=== PATIENT | female | born 1950 | race Caucasian/White ===

== ENCOUNTER → 2019-12-14 13:40 | Outpatient (BNVA) | payer MEDICARE, MEDICAID, SELFPAY | PROVIDERS: Family Provider Family Medicine; Visit Provider Orthopaedic Surgery | DX: M17.11 Unilateral primary osteoarthritis, right knee (principal); M25.561 Pain in right knee | CPT/HCPCS: 73560; 73565 ==

== ENCOUNTER 2020-01-12 08:00 | Day surgery (SDC) | payer MEDICARE, MEDICAID, SELFPAY ==
--- NOTE | 2020-01-12 09:20 | ECG_ITS ---
Measurements Intervals [place] Rate: 53 P: MS: 0 QRS: 35 QRSD: 73 T: 30 QT: 397 QTc: 374 SINUS BRADYCARDIA WITH 2ND DEGREE AV BLOCK, MOBITZ TYPE II LOW QRS VOLTAGE IN PRECORDIAL LEADS [QRS DEFLECTION < 1.0 mV IN CHEST LEADS] MODERATE ST DEPRESSION [0.05+ mV ST DEPRESSION] No previous ECG available for comparison Electronically Signed On 01-12-2020 10:59:42 CDT by Germain Tapia [email or web address]
[2020-01-12 09:28] VITALS: BMI 32.1
--- NOTE | 2020-01-12 10:18 | ANES.PREANE2 ---
Pre-Anesthetic Assessment Pre-Anesthetic Assessment: Height/Weight: Height 1.55 m Weight 77.111 kg Preop Diagnosis: Osteoarthritis right knee Proposed Procedure: Operation Date: 01/22/20 07:00 Proposed Procedures p Right total knee arthroplasty (19118) M17.11(Right) - Fabián Law MD Exam: Pre-Anes Outpt Exam: alert, oriented x 3, clear to auscultation bilaterally and regular rate & rhythm Airway: Submandibular: WNL Cervical ROM: WNL MP: 1 Dentition: False CV/HEM: CV/HEM: HTN Comments: rx'd x 30y 2 blocks Angina/GARDINER Anesthetic Plan: ASA status: 2 Anesthesia: General and Regional (specify below) PFSH Anesthesia PFSH: Social History Smoking and tobacco status: never smoked Alcohol intake: never Data Anesthesia Cardiac Studies: No Data to Display
== END 2020-01-12 09:00 | disposition home or self-care (01) ==
LOC: OR 06-11 13:08
PROVIDERS: PCP Nurse Practitioner Family; Visit Provider Orthopaedic Surgery
DX: Z01.818 Encounter for other preprocedural examination (principal); M17.11 Unilateral primary osteoarthritis, right knee; I44.1 Atrioventricular block, second degree
CPT/HCPCS: 93005; 93010

== ENCOUNTER 2020-03-04 09:44 | Observation (INO) | payer MEDICARE, MEDICAID, SELFPAY ==
[2020-03-01 12:48] VITALS: BMI 33.4
--- NOTE | 2020-03-01 13:03 | ANES.PREANE2 ---
Pre-Anesthetic Assessment Pre-Anesthetic Assessment: Height/Weight: Height 1.55 m Weight 80.286 kg Preop Diagnosis: Osteoarthritis right knee Proposed Procedure: Operation Date: 03/04/20 07:00 Proposed Procedures p Right Total Knee Arthroplasty, primary osteoarthritis of knee 37970/M17.12(Right) - Fabián Law MD Familial anesthetic complications: None Exam: Pre-Anes Outpt Exam: alert, oriented x 3, clear to auscultation bilaterally and regular rate & rhythm Airway: Cervical ROM: WNL MP: 3 Additional comments: dentures on top edentulous Pulmonary: Pulmonary: None reported CV/HEM: CV/HEM: HTN and None reported : : None reported Hepatic: Comments: fatty liver GI: GI: None reported Metabolic: Metabolic: None reported Musc/skel: Musc/skel: Lower Back Pain Neuropsych: Neuropsych: 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
[2020-03-01 14:58] LABS: Add Urine Culture? Yes; Bacteria Urine 1+; Bilirubin Urine Neg (NEGATIVE); Blood Urine 3+ (Negative); Glucose Urine UA Norm (Normal); Ketones Urine Negative (Negative); Leukocyte Esterase Urine Negative (Negative); Nitrate Urine Negative (Negative); Protein Urine Neg (Negative); RBC Urine 25-40 /hpf (0-2); Specific Gravity, Urine 1.015 (1.005-1.030); Squamous Epithelial Cell Urine 0-4 (0-5); Urine Appearance Clear (CLEAR); Urine Color Yellow (Yellow); Urobilinogen Urine Norm (Negative); WBC Urine 0-4 /hpf (0-5); pH Urine 7 (5-7)
[2020-03-04] VITALS (21 sets, daily range): BP systolic 139–169; BP diastolic 65–100; PULSE 67–95; RESP 16–27; TEMP 36.2–36.8; O2SAT 92–100
[2020-03-04] MEDS: sodium chloride 0.9% 1,000 ML 30 ML IV (05:51)
--- NOTE | 2020-03-04 06:13 | P.ANESUD_ITS ---
Pre-Anesthetic Update Pre-Anesthetic Assessment: Date of Surgery/Procedure: 03/04/20 Preop Laurie gnosis: Osteoarthritis right knee Proposed Procedure: Operation Date: 03/04/20 07:00 Proposed Procedures p Right Total Knee Arthroplasty, primary osteoarthritis of knee 27645/M17.12(Right) - Fabián Law MD Any changes to Pre-Anesthetic Assessment?: No Last Intake: Intake Last Liquid Date 03/04/20 Last Liquid Time 03:30 Last Solid Date 03/03/20 Last Solid Time 17:00 Vitals: Temperature 97.1 F L 03/04/20 05:33 Temperature Source Temporal Artery S can 03/04/20 05:33 Pulse Rate 67 03/04/20 05:33 Pulse Rhythm 03/04/20 05:33 Pulse Strength 3+ Normal 03/04/20 05:33 Respiratory Rate 18 03/04/20 05:33 Blood Pressure 160/100 03/04/20 05:33 Blood Pressure Magaly n 120 03/04/20 05:33 Pulse Oximetry 100 03/04/20 05:33 Oxygen Delivery Me thod 03/04/20 05:33 Exam: Pre-Anes Outpt Exam: alert, oriented x 3, clear to auscultation bilaterally and regular rate & rhythm Cardiac Studies: No Data to Display
[2020-03-04] MEDS: midazolam 1 mg/mL INJ 5 ML 5 MG IVP (06:36)
--- NOTE | 2020-03-04 06:59 | PM.HP ---
Providers/Chief Complaint Primary Care Provider: Estefania Sands NP Chief Complaint: right total knee osteoarthritis History of Present Illness Pili Donohue is a 69 year old female with a history of osteoarthritis of the right knee. She is received intermittent cortisone injections every 3 months however this had less response to the injections. She has significant limitations and is here for elective total knee arthroplasty Review of Systems General: Reports: 10 or more systems reviewed and unremarkable except in HPI and below Medications/Allergies Home Medications Medication Instructions Recorded Confirmed Last Taken Type aspirin 81 mg tablet,delayed 81 mg PO DAILY 12/14/19 03/01/20 02/29/20 History release lisinopril 10 mg tablet 10 mg PO DAILY 12/14/19 03/01/20 03/04/20 03:30 History cholecalciferol (vitamin D3) 1,000 unit PO DAILY 01/12/20 03/01/20 03/04/20 03:30 History Bedside Commode #1 ea 02/23/20 03/01/20 Unknown Rx Allergies Allergy/AdvReac Type Severity Reaction Status Date / Time Penicillins Allergy Unknown Verified 03/01/20 12:42 PFSH Acute PFSH: Social History Smoking and tobacco status: never smoked Alcohol intake: never Vitals/I&O/Wt Last Vital Signs Temp 97.1 F L 03/04/20 05:33 Pulse 67 03/04/20 05:33 Resp 18 03/04/20 05:33 BP 160/100 03/04/20 05:33 Pulse Ox 100 03/04/20 05:33 Physical Exam Narrative: EXAM NARRATIVE: HEAD: Normocephalic/atraumatic. NECK: Soft supple nontender. HEART: Normal heart sounds, regular rhythm. CHEST: Clear to auscultation. ABDOMEN: Soft nontender nondistended. Right knee motion is from 10 to 100 degrees. She is tender over medial joint line. She has a strong dorsalis pedis pulse. She will flex extend her toes without any motor deficits Data Micro: Microbiology 03/01/20 12:30 Urine Culture - Preliminary Urine,Clean Catch A&P Assessment and plan (1) Osteoarthritis of right knee: Patient has been previously counseled. We will proceed with right total knee arthroplasty Status: Acute Attestations Medical Necessity Statement*: Observation status. We will plan to discharge tomorrow and less medical issues are Coding Level of Care Code Acute Payment Processor for g Fwd Diagnoses Osteoarthritis of right knee M17.11
[2020-03-04] MEDS: clindamycin 900 MG/50 ML PREMIX 100 MG IV ×3 (07:07→20:31)
[2020-03-04] MEDS: ketorolac 30 mg/mL INJ IM (07:24)
--- NOTE | 2020-03-04 07:37 | ANES.PROC ---
Anesthesia Procedures Procedure/Date: 03/04/20 Nerve Block ^: Nerve Block 1: Main Anesthesia: general anesthesia Time Out Performed: Yes Consent: requested by attending/covering physician, from patient, risks and benefits reviewed and patient agrees to proceed Nerve block location: adductor canal (Right) Anesthesia monitors applied: pulse oximetry, BP cuff and oxygen Nerve block position: supine Anesthetic Used: ropivicaine 0.5% Amount of anesthesia used (mL): 30 Ultrasound used to: recognize landmarks Nerve Stimulator Used?: No Interscalene/Femoral BLK: 4 stimuplex 21 g needle used for position and inplane approach Injection: neg aspiration of heme and paresthesia +/- Patient Tolerated Procedure: well and no complications Complications: none
--- NOTE | 2020-03-04 07:49 | SUR.OPER ---
0746 - Pt's family (Lorie) notified of surgery start via her cell phone.
[2020-03-04 08:00] LABS: Basophils % 0.4 %; Eosinophils # 0.2 10^3/uL (0.0-0.8); Eosinophils % 2.9 %; Hematocrit 36.5 % (37.0-47.0); Hemoglobin 12.1 g/dL (11.5-15.3); Lymphocytes # 2.3 10^3/uL (0.8-4.8); Mean Corpuscular HGB Conc 33.2 g/dL (30.0-36.0); Mean Corpuscular Hemoglobin 32.8 pg (28.0-34.0); Mean Corpuscular Volume 98.9 fL (81-99); Mean Platelet Volume 10.6 fL (7.4-10.4); Monocytes # 0.9 10^3/uL (0.2-0.9); Monocytes % 13.5 %; Neutrophils # 3.4 10^3/uL (1.8-7.7); Neutrophils % 50.1 %; Nucleated Red Blood Cells % 0 %; Platelet Count 147 10^3/cmm (130-400); Red Blood Count 3.69 10^6/uL (4.1-5.3); Red Cell Distribution Width 11.7 % (12.1-15.1); White Blood Count 6.8 10^3/uL (4.0-10.0)
[2020-03-04] MEDS: tranexamic acid 1,000 mg/10mL SDV 1000 MG IRRIGATION (08:22)
[2020-03-04] MEDS: EPINEPHrine 1 mg/mL INJ XX (08:24)
--- NOTE | 2020-03-04 09:08 | SUR.PHASEI ---
0905 PATIENT TO PACU AT THIS TIME FROM OR. RR EVEN AND UNLABORED. ORAL AIRWAY IN PLACE. SPO2 99% ON SIMPLE MASK AT 8L. DRESSING INTACT TO RIGHT KNEE, RIGHT PEDAL PULSE MARKED AND STRONG. LOCKWOOD CATH IN PLACE.
--- NOTE | 2020-03-04 09:12 | SUR.PHASEI ---
0912 ORAL AIRWAY REMOVED AT THIS TIME. SPO2 100% ON SIMPLE MASK AT 8L.
--- NOTE | 2020-03-04 09:15 | SUR.PHASEI ---
0915 FIRST ICE PLACED AT THIS TIME TO RIGHT KNEE.
--- NOTE | 2020-03-04 09:16 | XR_ITS ---
WS: [id number] RIGHT KNEE 2 VIEWS AP and cross table lateral imaging is submitted. HISTORY: s/p R TKA. COMPARISON: 12/14/2019 Total knee replacement prosthetic devices are in good position and alignment. Normal position of the patella. Posterior patella arthroplasty. Numerous postsurgical sutures are noted over the anterior kn ee and there are normal postoperative changes in the soft tissues consistent with air, blood and ute a. No complications are evident. XR/XR knee RT 1-2V [id number] IMPRESSION: Satisfactory appearance of the recent RIGHT knee arthroplasty.
--- NOTE | 2020-03-04 09:18 | PM.OP ---
Operative Report Date of procedure: March 04, 2020 Pre-op Diagnosis: Osteoarthritis right knee Post-op diagnosis: same Post-op Findings: Same Procedure Done: Right total knee arthroplasty Implants: Angela total knee arthroplasty components were used includin) Size 3 triathalon cruciate retaining femoral component 2) Size 3 Tritanium tibial component 3) 32 mm /10 mm thickness Tritanium asymetric patella 4) Size 3/11 mm thickness CR tibial bearing insert Pathology: none sent Anesthesia: General and Nerve Block (Adductor canal) Estimated blood loss (mL): 200 Complications: None Findings: The patient had eburnated bone over medial femoral condyle, medial tibial plateau, patella and trochlea Condition: stable Disposition: PACU Procedure: The patient was taken to the operating room. Patient was given 1 g of tranexamic acid . The above anesthesia provided by the anesthesia service. A timeout was performed. The patient was prepped and draped in the usual fashion with the lower extremity exposed. A anterior incision was made, midline, from a point proximal to the patella to the distal tibial tubercle. Dissection was accomplished through the subcutaneous fat to the extensor mechanism. The vastus medialis oblique is musculature was elevated with a retractor and a capsular incision made from the medial patella along the patellar tendon up into the superior capsule. The patella could be displaced laterally and the knee flexed. The patellar fat pad was resected to provide better visibility. Retractors were placed medially and laterally adjacent to the tibial plateau. The femoral canal was drilled in line with the longitudinal axis of the femur. Intramedullary femoral guide for used to make a distal femoral cut in 5 degrees of valgus, resecting 8 mm from the more prominent condyle. Next the extra medullary tibial guide was placed in alignment with the longitudinal axis of the tibia. The cutting guides were set to remove just over 9 mm from the high tibial plateau. The proximal tibia was then cut. The femoral measuring guide was then placed over the distal femur. Rotation was verified checking the relationship of the guide to the condyle and the trochlear groove. The femur was measured and cut for the desired femoral component. The desired tibial baseplate was then chosen. A trial reduction with the femur tibial baseplate and polyethylene was done, assuring that the knee was stable throughout full motion. Ligament balancing involved nothing more than release of the deep medial collateral ligament.The tibia was prepared for the tibial baseplate. Patellar thickness was then measured. The patella was cut removing articular cartilage and prepared for appropriate size patellar button. All surfaces were cleaned with pulsatile lavage. The femur tibia and patella were then press-fit into place. The posterior capsule and collateral ligaments were then injected with a solution of 100 mL of 0.2% ropivacaine, 1 mL of a 1:1000 epinephrine solution, and 30 mg of Toradol. Final polyethylene component was then snapped into place into the tibia. 2 grams of tranexamic acid were applied to the wound. The tourniquet was deflated. The tranxanemic acid was left contact with the knee for 5 minutes before the knee was irrigated with saline. The extensor retinaculum was closed with 1 Ethibond. The subcutaneous tissues were closed with 2-0 Vicryl and the skin was closed with skin marlon. A compressive dressing was applied. The patient was taken to recovery room in stable condition.
--- NOTE | 2020-03-04 09:59 | SUR.PHASEI ---
0947 PATIENT TO MED SURG AT THIS TIME. NO DISTRESS. DENIES PAIN. DRESSING INTACT TO RIGHT KNEE, WITH FIRST ICE IN PLACE. LOCKWOOD CATH DRAINING, CLEAR,YELLOW URINE.
[2020-03-04] MEDS: CELEcoxib 200 mg Capsule PO ×2 (10:45→20:30)
[2020-03-04] MEDS: sodium chloride 0.9% 1,000 ML 100 ML IV ×2 (10:47→20:31)
[2020-03-04] MEDS: chlorhexidine gluconate 0.12% Btl 473 mL 30 ML MUCOUS MEM ×3 (12:21→20:30)
[2020-03-04] MEDS: sennosides-docusate Tablet 2 TAB PO (17:22)
[2020-03-04] MEDS: iron polysaccharide complex 150 mg Capsule PO (17:22)
[2020-03-04] MEDS: calcium carbonate 500 mg Chew Tablet 1000 MG PO (17:23)
[2020-03-04] MEDS: oxyCODONE-APAP 5-325 mg Tablet 1 TAB PO (20:30)
[2020-03-05] VITALS: BP 133/77; PULSE 79; RESP 20; TEMP 36.8; O2SAT 93
[2020-03-05 04:00] VITALS: BP 147/77; PULSE 71; RESP 20; TEMP 37.1; O2SAT 93
[2020-03-05] MEDS: sodium chloride 0.9% 1,000 ML 100 ML IV (05:09)
[2020-03-05 05:11] LABS: Hematocrit 36.6 % (37.0-47.0)
[2020-03-05] MEDS: clindamycin 900 MG/50 ML PREMIX 100 MG IV (05:12)
--- NOTE | 2020-03-05 07:34 | P.DS_ITS ---
Discharge Providers Date of Admission: 03/04/20 09:44 Date of Discharge: March 05, 2020 Attending Provider at Admission: Fabián Law MD Attending Provider at Discharge: Fabián Law MD Primary Care Provider: Estefania Sands NP Diagnoses at Discharge Discharge Diagnosis (1) Osteoarthritis of right knee: Status: Acute Reason for Visit Reason for Visit: Reason For Visit: right total knee osteoarthritis Hospital Course Hospital Course: Patient underwent elective right total knee arthroplasty. She had little pain and made excellent progress with therapy. By the first postoperative day she was independent with her exercises and independent for d ischarge Physical Exam Narrative: EXAM NARRATIVE: Seen on 03/05/2020. She had little swelling in her knee. Her dressing was clean and dry. She could perform a straight leg raise. Urinary Catheter Management^: Boo: Cath Placed During This Visit: yes Reason for Continuing Indwelling Catheter: Perioperative Use in Selected Surgeries Urinary Catheter Date of Insertion: 03/04/20 Urinary Catheter Time of Insertion: 07:15 Discharge Data Data Completed and Pending: Completed Studies During Hospitalization Category Date Time Status XR knee RT 1-2V 7 3560 Routine Exams 03/04/20 09:16 Completed Labs from last 24 hours 03/05/20 03/04/20 04:37 07:25 WBC 6.8 RBC 3.69 L Hgb 12.1 Hct 36.6 L 36.5 L MCV 98.9 MCH 32.8 MCHC 33.2 RDW 11.7 L Plt Count 147 MPV 10.6 H Neut % (Auto) 50.1 Lymph % (Auto) 33.0 [place] % (Auto) 13.5 Eos % (Auto) 2.9 Baso % (Auto) 0.4 Neut # (Auto) 3.4 Lymph # (Auto) 2.3 [place] # (Auto) 0.9 Eos # (Auto) 0.2 Baso # (Auto) 0.0 Nucleated RBC % (a uto) 0 Nucleated RBCs # 0.0 Vitals: Last Vital Signs Temp 98.7 F 03/05/20 04:00 Pulse 71 03/05/20 04:00 Resp 20 H 03/05/20 04:00 BP 147/77 03/05/20 04:00 Pulse Ox 93 03/05/20 04:00 Discharge Plan Discharge Patient Disposition: Home, Self-Care Condition: Stable Prescriptions: New oxycodone-acetaminophen 5-325 mg Tablet 1 tab PO Q4H PRN (Reason: Severe Pain) Qty: 30 RF: 0 celecoxib 200 mg Capsule 200 mg PO Q12H Qty: 30 RF: 0 Continued aspirin 81 mg tablet,delayed release (DR/EC) 81 mg PO DAILY RF: 0 lisinopril 10 mg tablet 10 mg PO DAILY RF: 0 (DME) Bedside Commode Qty: 1 RF: 0 cholecalciferol (vitamin D3) 1,000 unit/drop Drops 1,000 unit PO DAILY RF: 0 Other Ambulatory Orders: DME: Walker (Order) Location: None Selected Ordered By: Fabián Law Referrals: Fabián Law MD [Physician] - 03/19/20 3:15 pm Discharge Diet: Advance as tolerated Discharge Activity: Limit activity as instructed Patient Instructions: Oxycodone/Acetaminophen (By mouth), Celecoxib (By mouth), Total Knee Replacement (DC), Surgical Site Infections (GEN) Activity Restrictions/Additional Instructions: May shower once incisions completely free of drainage. Replaced dressings as needed for drainage.. Take Celebrex twice a day for the next 15 days, discontinue other anti- inflammatories Take oxycodone for breakthrough pain. Exercises per physical therapy. Ice and elevate knees as needed for pain and swelling.. Discharge Date/Time: 03/05/20 14:00 Discharge Attestations Time Spent in Discharge Care*: other Quality Metrics Clinical Quality Measures During this hospital stay, did patient experience: None Coding Level of Care Code Acute Corporate Health Consultant for Jerica Armstrong Diagnoses Osteoarthritis of right knee M17.11
[2020-03-05 08:00] VITALS: BP 180/94; PULSE 66; RESP 18; TEMP 36.6; O2SAT 95
[2020-03-05] MEDS: cholecalciferol (vitamin D3) 1,000 unit Tablet 1000 UNIT PO (08:02)
[2020-03-05] MEDS: lisinopril 10 mg Tablet PO (08:02)
[2020-03-05] MEDS: multivitamin therapeutic Tablet 1 TAB PO (08:02)
[2020-03-05] MEDS: sennosides-docusate Tablet 2 TAB PO (08:02)
[2020-03-05] MEDS: iron polysaccharide complex 150 mg Capsule PO (08:02)
[2020-03-05] MEDS: aspirin 81 mg EC Tablet PO (08:02)
[2020-03-05] MEDS: chlorhexidine gluconate 0.12% Btl 473 mL 30 ML MUCOUS MEM ×2 (08:06→13:35)
--- NOTE | 2020-03-05 08:15 | PC.NURSE ---
PT LOCKWOOD CATHETER REMOVED, 10ML OUT OF BALLOON WAS REMOVED, 200ML LIGHT YELLOW CLEAR URINE WAS REMOVED FROM CATHETER BAG. PT TOLERATED WELL.
[2020-03-05 10:50] VITALS: BP 111/63; PULSE 89; RESP 18; TEMP 36.8; O2SAT 99
[2020-03-05] MEDS: CELEcoxib 200 mg Capsule PO (11:15)
--- NOTE | 2020-03-05 11:56 | PC.CHAP ---
Pastoral Care Encounter/Spiritual Assessment Type of Contact [] Declined break out worker visit [] Patient/Family/Request visit [] Outpatient visit [] Follow-up visit [] Physician referral [] Code/Alert [x] Routine visit [] Staff referral [] Actively dying [] Patient sleeping [] Family support [] [] Out of room [] Palliative care [] [x] Receiving care in room [] Pre-surgical visit [] Trauma [] Long length of stay [] ICU visit [] Other: Relational/Emotional Strength [x] Patient feels connected with others/family/visitors/staff [] Distress [] Loneliness/isolation [] Abandonment Spirituality of Patient [x] Person of Lori [] Attends Scientologist of their Lori [x] Believes in Prayer [] Reads Bible or Buddhism materials [] There are Spiritual issues to be addressed Front Office Director Interventions [x] Prayer [x] Active listening [x] Non-anxious presence [x] Spiritual/emotional support [] Crisis/trauma care [x] Spiritual counseling [] Bereavement support [] Provided bereavement packet [] Provided Bible/devotional materials [] Provided toy/stuffed animal, coloring book to patient or family member [] Provided Communion [] Anointing/[place] [] Salvation [x] Completed spiritual assessment [] Other: Impact on Illness or Injury [] Angry [] Fearful [] Anxious [] Often cries [] Exhaustion [] Unable to work [] Unable to attend sikhism [] Unable to walk/stand [] Unable to read [] Unable to drive [] Unable to eat/drink [] Unable to sleep [] Unable to be with family [] Patient intubated [] Other: Summary right total knee replacement surgy went well, going home today, good attidude Time spent with patient 10 mins
[2020-03-05 14:14] VITALS: BP 111/63; PULSE 89; RESP 18; TEMP 36.8; O2SAT 99
== END 2020-03-05 14:00 | disposition home or self-care (01) ==
LOC: MEDSURG 17:38
PROVIDERS: Admitting Provider Orthopaedic Surgery; PCP Nurse Practitioner Family; Visit Provider Orthopaedic Surgery
PROC: (CPT 27447; principal; 2020-03-04 07:00)
DX: M17.11 Unilateral primary osteoarthritis, right knee (principal); I10 Essential (primary) hypertension; Z86.73 Personal history of transient ischemic attack (TIA), and cerebral infarction without residual deficits
CPT/HCPCS: 27447; 12345; 36415; 51702; 73560; 81001; 85014; 85025; 87086; 96361; 96365; 96374; 97110; 97116; 97161; 97165; C1776; G0378; J0171; J1100; J1580; J1885; J2001; J2250; J2405; J2704; J2710; J2795; J3010; J3490; J7030

== ENCOUNTER 2020-03-05 23:53 | Emergency (ER) | payer MEDICARE, MEDICAID, SELFPAY ==
[2020-03-05 23:58] VITALS: BP 160/77; PULSE 82; RESP 18; TEMP 36.8; O2SAT 98; BMI 34.9
--- NOTE | 2020-03-06 01:02 | W.ED.EXTPRO ---
HPI - Extremity Problem General: Chief complaint: Extremity Injury, Lower Stated complaint: knee pain Source: patient and EMS Mode of arrival: EMS Limitations: no limitations History of Present Illness: HPI Narrative: 69-year-old female who had knee replacement a day ago. Patient states that she did not fill her oxycodone and has had pain starting tonight. States the pain is severe in nature. She states she felt a clicking in her knee as well. She denies any fall or new injuries. Denies any fevers. MD Complaint: extremity pain Onset (ago): hour(s) Pain Consistency: constant Location: right Severity scale (1-10): 7 Quality: sharp Radiation: none Relieving factors: immobilization Exacerbating factors: range of motion Associated symptoms: Deny chest pain, fever(s) or rash Review of Systems Const: Denies: fever, chills, body aches or change in appetite Eyes: Denies: blurry vision or eye discomfort ENMT: Denies: throat pain or dental pain Card: Denies: chest pain Resp: Denies: shortness of breath GI: Denies: abdominal pain, nausea, vomiting or diarrhea : Denies: painful urination Musc: Reports: joint pain Skin/Breast: Denies: rash Neuro: Denies: headache Psych: Denies: depression Antonino/Lymph: Denies: easy bruising All/Imm: Denies: hives [facility] ED PFSH: Social History Smoking and tobacco status: never smoked Alcohol intake: never Physical Exam Const: COMMON NORMALS: no apparent distress, oriented x3 and healthy appearing HENMT: COMMON NORMALS: normocephalic and head/scalp atraumatic HEAD & SCALP: normocephalic and atraumatic Eye: COMMON NORMALS: PERRL and EOMs intact bilaterally PUPIL: Yes PERRL Neck/C-Spine: COMMON NORMALS: full ROM and supple Chest: COMMONS NORMALS: inspection of chest normal and palpation of chest normal Resp: COMMON NORMALS: normal respiratory effort, no retractions, no use of accessory muscles and clear to auscultation bilaterally AUSCULTATION: clear to auscultation bilaterally Cardio: COMMON NORMALS: regular rate, regular rhythm and no murmurs RATE: regular rate RHYTHM: regular rhythm GI: COMMON NORMALS: normal to inspection, nondistended, normoactive bowel sounds, soft to palpation, non-tender and no masses PALPATION: Yes soft Extremity: NARRATIVE EXTREMITY EXAM: Right knee dressing was taken down and incision is clean dry intact with no drainage. Patient has full range of motion with some pain. No obvious deformity noted Neuro: COMMON NORMALS: oriented x3, moves all extremities and no focal motor deficits Psych: COMMON NORMALS: mental status grossly normal, thought process normal and cooperative THOUGHT PROCESS: normal thought process Skin: COMMON NORMALS: no rashes or lesions noted and no wounds GENERAL SKIN EXAM: no rashes or lesions noted Course Vital Signs: Vital signs: Vital Signs Temperature 98.3 F 03/05/20 23:58 Pulse Rate 82 03/06/20 01:40 Respiratory Rate 16 03/06/20 01:40 Blood Pressure 126/76 03/06/20 01:40 Pulse Oximetry 92 03/06/20 01:40 MDM - Extremity (Nontraumatic) MDM Narrative: Medical decision making narrative: Patient presents with postop knee pain. Patient's x-ray here is negative and the incision is clean dry and intact. Distal pulses are palpable and she is well-appearing here informed her she needs to fill her pain prescription she is stable for discharge. She is to call Dr. Soto's office tomorrow and schedule appointment. She is to return if worsening. Imaging Data^: xr knee r: My impression: No acute abnormality noted Discharge Plan Discharge Patient Disposition: Home, Self-Care Clinical Impression: Postoperative pain of knee Condition: Stable Prescriptions: No Action aspirin 81 mg tablet,delayed release (DR/EC) 81 mg PO DAILY RF: 0 lisinopril 10 mg tablet 10 mg PO DAILY RF: 0 (DME) Bedside Commode Qty: 1 RF: 0 oxycodone-acetaminophen 5-325 mg Tablet 1 tab PO Q4H PRN (Reason: Severe Pain) Qty: 30 RF: 0 celecoxib 200 mg Capsule 200 mg PO Q12H Qty: 30 RF: 0 cholecalciferol (vitamin D3) 1,000 unit/drop Drops 1,000 unit PO DAILY RF: 0 Discharge Orders: Discharge Order (Routine); Ordered 03/06/20 Ordered By: Mónica Botello Referrals: Estefania Sands NP [Primary Care Provider] - Fabián Law MD [Physician] - 1-3 days Discharge Diet: Advance as tolerated Discharge Activity: Resume usual activity Patient Instructions: Precautions after Total Joint Replacement Surgery (ED) Discharge Date/Time: 03/06/20 01:47 Coding Level of Care Code ED Road Test Examiner for Jerica Fwd Exam Comprehensive
[2020-03-06 01:05] VITALS: RESP 17; O2SAT 95
[2020-03-06] MEDS: morphine 4 mg/mL SDV 1 mL IM (01:05)
--- NOTE | 2020-03-06 01:08 | XR_ITS ---
WS: [id number] RIGHT KNEE: 3 VIEW(S) TECHNIQUE: AP, oblique(s) and lateral. HISTORY: Post Op COMPARISON: 03/04/2020 Recent postop knee. Prosthetic components remain in good position alignment. No fractures or dislocat ion. No joint space narrowing or osteophytes. There is a small joint effusion and soft tissue edema surrounding the knee. Postoperative marlon ant eriorly. XR/XR knee RT 3V* [id number] IMPRESSION: Satisfactory recent postoperative changes RIGHT knee.
[2020-03-06 01:09] VITALS: PULSE 78
[2020-03-06 01:12] VITALS: BP 152/79; PULSE 83; RESP 17; O2SAT 95
[2020-03-06 01:40] VITALS: BP 126/76; PULSE 82; RESP 16; O2SAT 92
--- NOTE | 2020-03-06 13:56 | DCPLANNER ---
Addendum entered by Marva Menjivar 03/29/20 15:09: Patient did attend the appointment scheduled for 03.19.20 with ortho. Original Note: manager wellness had message to schedule a follow up appointment for patient with ortho. manager wellness called the ortho clinic, spoke with Pat, gave clinic patients information. manager wellness was told that patient has a follow up appointment scheduled for Thursday, March 19, 2020 at 3:15 at the ortho clinic.
== END 2020-03-06 01:47 | disposition home or self-care (01) ==
PROVIDERS: Emergency Provider Emergency Medicine; PCP Nurse Practitioner Family
DX: G89.18 Other acute postprocedural pain (principal); M25.561 Pain in right knee; Z96.651 Presence of right artificial knee joint; Z79.82 Long term (current) use of aspirin
CPT/HCPCS: 12345; 73562; 96372; 99281; 99283; J2270

== ENCOUNTER 2020-03-23 13:31 | Emergency (ER) | payer MEDICARE, MEDICAID, SELFPAY ==
[2020-03-23 13:37] VITALS: PULSE 51; RESP 20; TEMP 37.3; O2SAT 95; BMI 32.8
--- NOTE | 2020-03-23 13:44 | CTR_ITS ---
PROCEDURE INFORMATION: Exam: CT Abdomen And Pelvis With Contrast Exam date and time: 03/23/2020 2:38 PM Age: 69 years old Clinical indication: Abdominal pain; Localized; Left lower quadrant (llq); Patient HX: C/O llq/groin pain; Additional info: Left groin pain TECHNIQUE: Imaging protocol: Computed tomography of the abdomen and pelvis with intravenous contrast. Radiation optimization: All CT scans at this facility use at least one of these dose optimization techniques: automated exposure control; mA and/or kV adjustment per patient size (includes targeted exams where dose is matched to clinical indication); or iterative reconstruction. Contrast material: VISI 320; Contrast volume: 95 ml; Contrast route: 20G; COMPARISON: CT abdomen pelvis w con* [id number] 08/24/2014 7:53 PM RADIATION DOSE METRICS: Total DLP: 1050.37 mGy-cm FINDINGS: Liver: Normal. No mass. Gallbladder and bile ducts: Normal. No calcified stones. No ductal dilation. Pancreas: Normal. No ductal dilation. Spleen: Normal. No splenomegaly. Adrenals: Normal. No mass. Kidneys and ureters: Left renal simple cyst measuring >1.0 cm which has increased in size since the previous exam. No followup needed. [id number] left hydronephrosis with 2 contiguous 4 mm left UVJ stones. Stomach and bowel: Unremarkable. No obstruction. No mucosal thickening. Appendix: No evidence of appendicitis. Intraperitoneal space: Unremarkable. No free air. No significant fluid collection. Vasculature: Unremarkable. No abdominal aortic aneurysm. Lymph nodes: Unremarkable. No enlarged lymph nodes. Bladder: Unremarkable as visualized. Reproductive: Unremarkable as visualized. Bones/joints: Dextroscoliosis. Moderate to severe multilevel spine degenerative changes including degenerative disc disease, spondylosis and facet degenerative changes. Soft tissues: Unremarkable. CT/CT abdomen pelvis w con* [id number] IMPRESSION: 1. Left renal simple cyst measuring >1.0 cm which has increased in size since the previous exam. No followup needed. 2. Fpib-yz-ijsvrmrs left hydronephrosis with 2 contiguous 4 mm left UVJ stones. COMMENTS: Consistent with the [employer]'s Incidental Findings Committee white paper (J Am [employer]igo Radiol 2018): Any incidental renal lesion less than 1.0 cm or classified as too small to characterize, or any incidental cystic renal lesion characterized as simple-appearing, is likely benign. No follow-up imaging is recommended for these lesions per consensus recommendations based on imaging criteria. Radiation Dose CTDIVOL = (mGy): DLP = 1050.37 (mGy-cm)
--- NOTE | 2020-03-23 13:46 | PC.NURSE ---
HAD TOTAL RIGHT KNEE REPLACEMENT 03/04. DENIES TAKING ANY PAIN MEDS
[2020-03-23] MEDS: ondansetron 2 mg/ML SDV 2 mL 4 MG IVP (14:19)
[2020-03-23 14:20] LABS: Basophils # 0.1 10^3/uL (0.0-0.1); Basophils % 0.7 %; Eosinophils # 0.1 10^3/uL (0.0-0.8); Eosinophils % 0.6 %; Hematocrit 36.4 % (37.0-47.0); Hemoglobin 12.1 g/dL (11.5-15.3); Lymphocytes # 2.1 10^3/uL (0.8-4.8); Mean Corpuscular HGB Conc 33.2 g/dL (30.0-36.0); Mean Corpuscular Hemoglobin 32.4 pg (28.0-34.0); Mean Corpuscular Volume 97.3 fL (81-99); Mean Platelet Volume 10.3 fL (7.4-10.4); Monocytes # 1.2 10^3/uL (0.2-0.9); Monocytes % 14.1 %; Neutrophils # 5.1 10^3/uL (1.8-7.7); Neutrophils % 59.4 %; Nucleated Red Blood Cells % 0 %; Platelet Count 258 10^3/cmm (130-400); Red Blood Count 3.74 10^6/uL (4.1-5.3); Red Cell Distribution Width 12.3 % (12.1-15.1); White Blood Count 8.5 10^3/uL (4.0-10.0)
[2020-03-23] MEDS: sodium chloride 0.9% 1,000 ML 999 ML IV (14:20)
[2020-03-23] MEDS: HYDROmorphone 1 mg/mL INJ 1 mL IVP (14:20)
[2020-03-23 14:40] VITALS: BP 165/73; PULSE 56; RESP 20; O2SAT 95
[2020-03-23 14:40] LABS: Lactate (Lactic Acid level) 2.8 mmol/L (0.5-2.2)
[2020-03-23 14:44] LABS: Alanine Aminotransferase 34 U/L (0-33); Albumin Level 3.7 g/dL (3.5-5.2); Alkaline Phosphatase 125 IU/L (35-105); Anion Gap 19.5 (5-19); Aspartate Amino Transferase 53 U/L (0-32); Blood Urea Nitrogen 15 mg/dL (8-23); C Reactive Protein 11.1 mg/L (0.0-4.9); Calcium 9.7 mg/dL (8.5-10.5); Carbon Dioxide 23 mmol/L (22-29); Chloride 101 mmol/L (98-107); Globulin 3.2 g/dL (1.3-4.6); Glomerular Filtration Rate 37.4 mL/min (90-130); Glucose 112 mg/dL (65-115); Lipase 42 U/L (13-60); Osmolality Calculated 285 mOsm/kg (285-295); Potassium 4.5 mmol/L (3.5-5.1); Sodium 139 mmol/L (136-145); Total Bilirubin 1.1 mg/dL (0.15-1.2); Total Protein 6.9 g/dL (6.6-8.7)
--- NOTE | 2020-03-23 14:54 | PC.NURSE ---
RESTING AFTER PAIN MEDS. FLUIDS INFUSING. NO ACUTE DISTRESS
--- NOTE | 2020-03-23 15:24 | W.ED.ABDPA2 ---
HPI - Abdominal Pain General: Chief Complaint: Abdominal Pain Stated Complaint: LEFT GROIN PAIN Time Seen by Provider: 03/23/20 13:39 History of Present Illness: HPI narrative: 69-year-old female who is status post right total knee arthroplasty at about 3 weeks. She had been doing well with this. She presents with left groin pain that started last night and is hurt worse today. She is vomited a few times to this morning. No fever. No diarrhea. No blood in the stool. MD elicited complaint: abdominal pain Onset (ago): hour(s) Pain Consistency: constant Location: LLQ and Pelvis Severity: moderate Quality: stabbing Radiation: none (head) Exacerbating factors: movement Associated Symptoms: Reports chills, nausea and vomiting; Denies dysuria, fever(s), hematochezia, hematuria and melena Review of Systems Const: Reports: chills; Denies: fever(s) Eyes: Denies: change in vision or blurry vision ENMT: Denies: odynophagia, bleeding gums, dental pain, change in hearing, epistaxis, post nasal drip or sinus pain Card: Denies: chest pain, palpitations, irregular heart rhythm, edema, swelling of feet/ankles, dyspnea on exertion or orthopnea Resp: Denies: dyspnea, productive cough, non-productive cough or wheezing GI: Reports: abdominal pain, nausea and vomiting; Denies: rectal pain, hematochezia or melena : Denies: dysuria, urinary frequency or hematuria Musc: Denies: neck pain, back pain, joint redness or joint warmth Skin/Breast: Denies: rash, pruritus or erythema Neuro: Denies: headache(s), dizziness, vertigo or confusion Psych: Denies: anxiety PFSH ED PFSH: Social History Smoking and tobacco status: never smoked Alcohol intake: never Physical Exam Const: GENERAL APPEARANCE: well developed ORIENTATION/CONSCIOUSNESS: Yes oriented to person, Yes oriented to place and Yes oriented to time HENMT: COMMON NORMALS: normocephalic, external ears normal and Normal external nose present HEAD & SCALP: normocephalic FACE & SINUS: normal facial exam NOSE: Normal external nose present and No nasal discharge present EXTERNAL EAR: Yes external ears normal MOUTH: tongue normal THROAT: posterior oropharynx normal; no peritonsillar mass Eye: COMMON NORMALS: Equal, round and reactive pupils present, EOMs intact bilaterally and conjunctivae normal EYELID: eyelids normal CONJUNCTIVA: Yes conjunctivae normal PUPIL: Yes Equal, round and reactive pupils present Neck/C-Spine: GENERAL: No tracheal deviation Chest: COMMONS NORMALS: normal inspection of the chest CHEST: No tenderness Resp: COMMON NORMALS: clear to auscultation bilaterally EFFORT & INSPECTION: No tachypneic, No respiratory distress, No retractions, No uses accessory muscles and No tracheal deviation AUSCULTATION: clear to auscultation bilaterally, no rhonchi, no wheezes and lung sounds not diminished Cardio: COMMON NORMALS: regular rate and regular rhythm RATE: regular rate RHYTHM: regular rhythm HEART SOUNDS: no murmurs PERIPHERAL PULSES: radial pulses present GI: INSPECTION: No abdominal distension AUSCULTATION: No Hyperactive bowel sounds present and No Hypoactive bowel sounds present PALPATION: No Guarding due to palpation present (GI) and No Rigid due to palpation PERCUSSION: no dullness to percussion and no tympanic to percussion : BLADDER/KIDNEY EXAM: Yes CVA tenderness Back/Pelvis: GENERAL BACK: Yes CVA tenderness Neuro: SENSORIUM/ORIENTATION: Yes oriented to person, Yes oriented to place and Yes oriented to time Psych: COMMON NORMALS: mental status grossly normal Skin: COMMON NORMALS: no rashes or lesions noted GENERAL SKIN EXAM: no rashes or lesions noted Course Vital Signs: Vital signs: Vital Signs Temperature 98.6 F 03/23/20 17:33 Pulse Rate 62 03/23/20 17:33 Respiratory Rate 18 03/23/20 17:33 Blood Pressure 158/85 03/23/20 17:33 Pulse Oximetry 96 03/23/20 17:33 MDM - Abdominal Pain MDM Narrative: Medical decision making narrative: 69-year-old lady with left groin pain. Normal white count. Hemoglobin is 12. Other labs are benign. She has a set of to 2 mm stones causing left hydronephrosis likely the cause of her discomfort. Awaiting her urine analysis Lab Data: Labs: Lab Results 03/23/20 03/23/20 03/23/20 Range/Units 14:09 14:09 14:09 WBC 8.5 (4.0-10.0) 10^3/ uL RBC 3.74 L (4.1-5.3) 10^6/u L Hgb 12.1 (11.5-15.3) g/dL Hct 36.4 L (37.0-47.0) % MCV 97.3 (81-99) fL MCH 32.4 (28.0-34.0) pg MCHC 33.2 (30.0-36.0) g/dL RDW 12.3 (12.1-15.1) % Plt Count 258 (130-400) 10^3/c mm MPV 10.3 (7.4-10.4) fL Neut % (Auto) 59.4 % Lymph % (Auto) 25.0 % Mcmullen % (Auto) 14.1 % Eos % (Auto) 0.6 % Baso % (Auto) 0.7 % Neut # (Auto) 5.1 (1.8-7.7) 10^3/u L Lymph # (Auto) 2.1 (0.8-4.8) 10^3/u L Mcmullen # (Auto) 1.2 H (0.2-0.9) 10^3/u L Eos # (Auto) 0.1 (0.0-0.8) 10^3/u L Baso # (Auto) 0.1 (0.0-0.1) 10^3/u L Nucleated RBC % (a uto) 0 % Nucleated RBCs # 0.0 /100WBC Sodium 139 (136-145) mmol/L Potassium 4.5 (3.5-5.1) mmol/L Chloride 101 (98-107) mmol/L Carbon Dioxide 23 (22-29) mmol/L Anion Gap 19.5 H (5-19) BUN 15 (8-23) mg/dL Creatinine 1.4 H (0.5-0.9) mg/dL GFR Calculation 37.4 L (90-130) mL/min Glucose 112 (65-115) mg/dL Calculated Osmolal ity 285 (285-295) mOsm/k g Lactate 2.8 H (0.5-2.2) mmol/L Calcium 9.7 (8.5-10.5) mg/dL Total Bilirubin 1.1 (0.15-1.2) mg/dL AST 53 H (0-32) U/L ALT 34 H (0-33) U/L Alkaline Phosphata se 125 H (35-105) IU/L C-Reactive Protein 11.1 H (0.0-4.9) mg/L Total Protein 6.9 (6.6-8.7) g/dL Albumin 3.7 (3.5-5.2) g/dL Globulin 3.2 (1.3-4.6) g/dL Lipase 42 (13-60) U/L Urine Color (Yellow) Urine Appearance (CLEAR) Urine pH (5-7) Ur Specific Gravit y (1.005-1.030) Urine Protein (Negative) Urine Glucose (UA) (Normal) Urine Ketones (Negative) Urine Blood (Negative) Urine Nitrate (Negative) Urine Bilirubin (NEGATIVE) Urine Urobilinogen (Negative) mg/dL Ur Leukocyte Monica ase (Negative) Urine RBC (0-2) /hpf Urine WBC (0-5) /hpf Ur Squamous Epith Cells (0-5) Urine Bacteria (NONE) 03/23/20 Range/Units 16:43 WBC (4.0-10.0) 10^3/ uL RBC (4.1-5.3) 10^6/u L Hgb (11.5-15.3) g/dL Hct (37.0-47.0) % MCV (81-99) fL MCH (28.0-34.0) pg MCHC (30.0-36.0) g/dL RDW (12.1-15.1) % Plt Count (130-400) 10^3/c mm MPV (7.4-10.4) fL Neut % (Auto) % Lymph % (Auto) % Mcmullen % (Auto) % Eos % (Auto) % Baso % (Auto) % Neut # (Auto) (1.8-7.7) 10^3/u L Lymph # (Auto) (0.8-4.8) 10^3/u L Mcmullen # (Auto) (0.2-0.9) 10^3/u L Eos # (Auto) (0.0-0.8) 10^3/u L Baso # (Auto) (0.0-0.1) 10^3/u L Nucleated RBC % (a uto) % Nucleated RBCs # /100WBC Sodium (136-145) mmol/L Potassium (3.5-5.1) mmol/L Chloride (98-107) mmol/L Carbon Dioxide (22-29) mmol/L Anion Gap (5-19) BUN (8-23) mg/dL Creatinine (0.5-0.9) mg/dL GFR Calculation (90-130) mL/min Glucose (65-115) mg/dL Calculated Osmolal ity (285-295) mOsm/k g Lactate (0.5-2.2) mmol/L Calcium (8.5-10.5) mg/dL Total Bilirubin (0.15-1.2) mg/dL AST (0-32) U/L ALT (0-33) U/L Alkaline Phosphata se (35-105) IU/L C-Reactive Protein (0.0-4.9) mg/L Total Protein (6.6-8.7) g/dL Albumin (3.5-5.2) g/dL Globulin (1.3-4.6) g/dL Lipase (13-60) U/L Urine Color Yellow (Yellow) Urine Appearance Clear (CLEAR) Urine pH 7 (5-7) Ur Specific Gravit y 1.000 L (1.005-1.030) Urine Protein Neg (Negative) Urine Glucose (UA) Norm (Normal) Urine Ketones Negative (Negative) Urine Blood 2+ H (Negative) Urine Nitrate Negative (Negative) Urine Bilirubin Neg (NEGATIVE) Urine Urobilinogen Norm (Negative) mg/dL Ur Leukocyte Monica ase Negative (Negative) Urine RBC 5-10 H (0-2) /hpf Urine WBC None (0-5) /hpf Ur Squamous Epith Cells Rare (0-5) Urine Bacteria Trace (NONE) Discharge Plan Discharge Patient Disposition: Home, Self-Care Clinical Impression: Ureterolithiasis Condition: Stable Prescriptions: New Percocet 7.5-325 mg tablet 1 tab PO QID PRN (Reason: pain) Qty: 14 RF: 0 Zofran 4 mg tablet 4 mg PO Q6H PRN (Reason: nausea and vomiting) Qty: 10 RF: 0 No Action aspirin 81 mg tablet,delayed release (DR/EC) 81 mg PO DAILY RF: 0 lisinopril 10 mg tablet 10 mg PO DAILY RF: 0 (DME) Bedside Commode Qty: 1 RF: 0 oxycodone-acetaminophen 5-325 mg Tablet 1 tab PO Q4H PRN (Reason: Severe Pain) Qty: 30 RF: 0 celecoxib 200 mg Capsule 200 mg PO Q12H Qty: 30 RF: 0 mirtazapine 7.5 mg Tablet 7.5 mg PO BEDTIME RF: 0 cholecalciferol (vitamin D3) 1,000 unit/drop Drops 1,000 unit PO DAILY RF: 0 Discharge Orders: Discharge Order (Routine); Ordered 03/23/20 Ordered By: Livan Arrieta Referrals: Martir Cronin MD [Physician] - 4-7 days Estefania Sands NP [Primary Care Provider] - Discharge Diet: Advance as tolerated Discharge Activity: Increase activity as tolerated Patient Instructions: Kidney Stones (ED) Activity Restrictions/Additional Instructions: Drink plenty of fluids. Return for fever greater than 100, vomiting liquids or medications, worsening pain despite treatment, other concerning symptoms. Follow-up with urology. Coding Level of Care Code ED Hr Administrative Assistant for Chg Fwd Exam Comprehensive
[2020-03-23 15:32] VITALS: BP 170/86; PULSE 75; RESP 18; O2SAT 95
[2020-03-23] MEDS: iodixanol 320 mg/mL 100mL Btl IV (15:37)
[2020-03-23 17:13] LABS: Add Urine Microscopic? YES; Bilirubin Urine Neg (NEGATIVE); Blood Urine 2+ (Negative); Glucose Urine UA Norm (Normal); Ketones Urine Negative (Negative); Leukocyte Esterase Urine Negative (Negative); Nitrate Urine Negative (Negative); Protein Urine Neg (Negative); Urine Appearance Clear (CLEAR); Urine Color Yellow (Yellow); Urobilinogen Urine Norm (Negative); pH Urine 7 (5-7)
[2020-03-23 17:26] LABS: Bacteria Urine TRACE; Squamous Epithelial Cell Urine RARE (0-5)
[2020-03-23 17:27] LABS: Add Urine Culture? No
[2020-03-23 17:33] VITALS: BP 158/85; PULSE 62; RESP 18; TEMP 37; O2SAT 96
[2020-03-23 17:56] VITALS: BP 154/68; PULSE 76; RESP 16; TEMP 37
--- NOTE | 2020-03-26 14:05 | DCPLANNER ---
appeals manager had message to schedule a follow up appointment for patient with Dr. Cronin. appeals manager called the office of Dr. Cronin, spoke with Olga. appeals manager gave clinic patients information, was told that patients information would be printed and given to Audrey for review. Clinic will call patient with appointment information.
--- NOTE | 2020-03-27 07:56 | DCPLANNER ---
Patient has a follow up appointment scheduled for Wednesday, March 27, [address] at 9:[address] Cronin. Clinic will call patient with appointment information.
--- NOTE | 2020-04-24 12:57 | DCPLANNER ---
Patient did attend appointment scheduled for 03.27.[address] Cronin
== END 2020-03-23 18:02 | disposition home or self-care (01) ==
PROVIDERS: Emergency Provider Emergency Medicine; PCP Nurse Practitioner Family
DX: N20.1 Calculus of ureter (principal); Z79.82 Long term (current) use of aspirin
CPT/HCPCS: 12345; 51701; 74177; 80053; 81001; 83605; 83690; 85025; 86140; 96361; 96374; 96375; 96376; 99283; J1170; J2405; J7030; Q9967

== ENCOUNTER 2020-03-27 08:00 | Outpatient (CLI) | payer MEDICARE, MEDICAID, SELFPAY ==
--- NOTE | 2020-03-27 08:00 | XR_ITS ---
WS: [id number] XR KUB [id number] REASON FOR EXAM: ureterolithiasis FINDINGS: Previous CT suggested hydronephrosis the left kidney with 2 4 mm stones seen in the left UV J. Junction both kidneys today appear to be normal size or is no definite stones seen in the region o f the ureters in the right or left side and no definite stones are seen in the bladder. There is marked degenerate changes throughout the lower lumbar spine. XR/XR KUB [id number] IMPRESSION: No definite stones are seen in either kidney ureter bladder
== END 2020-03-27 08:01 | disposition home or self-care (01) ==
LOC: RAD 08:05
PROVIDERS: PCP Nurse Practitioner Family; Visit Provider Urology
DX: N20.1 Calculus of ureter (principal)
CPT/HCPCS: 74018

== ENCOUNTER 2020-04-10 07:12 | Outpatient (CLI) | payer MEDICARE, MEDICAID, SELFPAY ==
--- NOTE | 2020-04-10 07:15 | XR_ITS ---
WS: [id number] XR KUB [id number] REASON FOR EXAM: Stone FINDINGS: Scoliotic curve convex to the right involving the thoracolumbar area. Neither renal shadow shows definite stones. And there is no stones noted in the region of the ureters or bladder. There is degenerate changes L4-5 and the articular facets. There is no air-fluid levels. XR/XR KUB [id number] IMPRESSION: No radiographic evidence of stones.
== END 2020-04-10 07:13 | disposition home or self-care (01) ==
LOC: RAD 07:13
PROVIDERS: PCP Nurse Practitioner Family; Visit Provider Urology
DX: N20.0 Calculus of kidney (principal); N13.30 Unspecified hydronephrosis
CPT/HCPCS: 74018; 81001

== ENCOUNTER → 2020-04-16 13:12 | Outpatient (BNVA) | payer MEDICARE, MEDICAID, SELFPAY | PROVIDERS: PCP Nurse Practitioner Family; Visit Provider Orthopaedic Surgery | DX: Z96.651 Presence of right artificial knee joint (principal) | CPT/HCPCS: 73560; 73565 ==

== ENCOUNTER 2020-04-17 07:34 | Outpatient (CLI) | payer MEDICARE, MEDICAID, SELFPAY ==
--- NOTE | 2020-04-17 07:15 | USCV_ITS ---
Pili Donohue Age: 69 Gender: F : 1950 Exam Date: 04/17/2020 07:34 Ordering Phys: Fabián Law MD Technologist: Maryam Molina [place] [facility] [place]: [place] with swelling HISTORY: six weeks post TKA with increased swelling RLE PROCEDURES: On the right side, the common femoral, superficial femoral, profunda femoral, popliteal, posterior tibial, greater saphenous veins and the peroneal trunk were identified and interrogated in the standard fashion. These veins were found to be easily compressible with spontaneous blood flow. FINDINGS: No DVT or superficial thrombus seen in RLE. Echolucent area measuring 3.75 x 1.05 cm in the medial aspect of the right knee CONCLUSIONS No evidence of DVT in the above-mentioned identifiable veins. No evidence of any superficial venous thrombosis. An echolucent area, measuring 3.75 x 1.05 cm, on the medial aspect of the right knee, may suggest fluid collection. Clinical correlation is recommended Dr Shalonda Guerra MD FACC (Electronically Signed) Final Date: 17 April 2020 19:55 S
== END 2020-04-17 07:35 | disposition home or self-care (01) ==
PROVIDERS: PCP Nurse Practitioner Family; Visit Provider Orthopaedic Surgery
DX: Z96.651 Presence of right artificial knee joint (principal); M79.89 Other specified soft tissue disorders
CPT/HCPCS: 93971

== ENCOUNTER 2020-05-28 07:20 | Outpatient (CLI) | payer MEDICARE, MEDICAID, SELFPAY ==
--- NOTE | 2020-05-28 07:30 | XRR_ITS ---
PROCEDURE INFORMATION: Exam: XR Abdomen, 1 View Exam date and time: 05/28/2020 7:36 AM Age: 69 years old Clinical indication: Condition or disease; Kidney or ureter condition; Calculus (stone) in kidney; Additional info: Stones, 2 month f/u TECHNIQUE: Imaging protocol: XR of the abdomen. Views: Frontal supine view of the abdomen. 1 View. COMPARISON: CR XR KUB [id number] 04/10/2020 7:19 AM FINDINGS: Gastrointestinal tract: The bowel gas pattern is nonspecific. Air filled large bowel including distal rectal gas. Organs: No calcifications are seen overlying the renal outlines or the expected course of the right or left ureters. No suspicious calcifications within the pelvis. Bones/joints: Unremarkable. XR/XR KUB [id number] IMPRESSION: The bowel gas pattern is nonspecific. Air filled large bowel including distal rectal gas.
== END 2020-05-28 07:21 | disposition home or self-care (01) ==
LOC: RAD 07:20
PROVIDERS: PCP Nurse Practitioner Family; Visit Provider Urology
DX: N20.0 Calculus of kidney (principal)
CPT/HCPCS: 74018

== ENCOUNTER → 2020-12-04 09:49 | Outpatient (BNVA) | payer MEDICARE, MEDICAID, SELFPAY | PROVIDERS: PCP Nurse Practitioner Family; Referring Provider Nurse Practitioner Family; Visit Provider Specialist | DX: M17.12 Unilateral primary osteoarthritis, left knee (principal); M25.562 Pain in left knee; M25.561 Pain in right knee | CPT/HCPCS: 73560; 73565 ==

== ENCOUNTER 2020-12-16 15:55 | Outpatient (CLI) | payer MEDICARE, MEDICAID, SELFPAY | END 2020-12-16 15:56 | disposition home or self-care (01) | LOC: SPT 15:57 | PROVIDERS: PCP Nurse Practitioner Family; Visit Provider Specialist | DX: Z46.89 Encounter for fitting and adjustment of other specified devices (principal); M25.562 Pain in left knee | CPT/HCPCS: 97760; L1832 ==

== ENCOUNTER 2021-02-28 15:08 | Outpatient (CLI) | payer MEDICARE, MEDICAID, SELFPAY ==
--- NOTE | 2021-02-28 15:27 | XR_ITS ---
WS: [id number] Chest 2 views, 02/28/2021 Clinical Data: ABNORMAL SERUM PROTEIN TEST Comparison: Portable chest, 08/23/2014. Findings: No nodules, masses or effusions are seen. The heart is normal. The pulmonary vascularity is not increased. No pneumonia or pneumothorax is seen. The aortic arch and descending aorta show mild tortuosity. XR/XR chest 2V* [id number] Impression: Atherosclerosis.
== END 2021-02-28 15:09 | disposition home or self-care (01) ==
PROVIDERS: PCP Nurse Practitioner Family; Visit Provider Nurse Practitioner Family
DX: R74.8 Abnormal levels of other serum enzymes (principal)
CPT/HCPCS: 71046

== ENCOUNTER → 2021-04-15 10:50 | Outpatient (BNVA) | payer MEDICARE, MEDICAID, SELFPAY | PROVIDERS: PCP Nurse Practitioner Family; Visit Provider Internal Medicine | DX: R76.8 Other specified abnormal immunological findings in serum (principal); R74.8 Abnormal levels of other serum enzymes; Z11.59 Encounter for screening for other viral diseases; D86.9 Sarcoidosis, unspecified; Z51.81 Encounter for therapeutic drug level monitoring | CPT/HCPCS: 36415; 80053; 81003; 82550; 82728; 83540; 85025; 85651; 86140; 86160; 86162; 86235; 86255; 86376; 86431; 86704; 86803; 87340; 99203; 99204 ==

== ENCOUNTER 2021-04-15 12:02 | Outpatient (CLI) | payer MEDICARE, MEDICAID, SELFPAY ==
[2021-04-15 12:51] LABS: Add Urine Microscopic? NO; Charge for UA Resulting for Rev
[2021-04-15 13:00] LABS: Basophils # 0.1 10^3/uL (0.0-0.1); Basophils % 0.8 %; Eosinophils # 0.3 10^3/uL (0.0-0.8); Eosinophils % 3.6 %; Hematocrit 41.7 % (37.0-47.0); Lymphocytes # 2.6 10^3/uL (0.8-4.8); Lymphocytes % 30.8 %; Mean Corpuscular HGB Conc 33.6 g/dL (30.0-36.0); Mean Corpuscular Hemoglobin 32.6 pg (28.0-34.0); Mean Platelet Volume 10.4 fL (7.4-10.4); Monocytes # 0.9 10^3/uL (0.2-0.9); Monocytes % 10.6 %; Neutrophils # 4.58 10^3/uL (1.8-7.7); Neutrophils % 53.7 %; Nucleated Red Blood Cells % 0 %; Platelet Count 155 10^3/cmm (130-400); Red Cell Distribution Width 11.8 % (12.1-15.1); White Blood Count 8.5 10^3/uL (4.0-10.0)
[2021-04-15 13:02] LABS: Bilirubin Urine Neg (Negative); Blood Urine Neg (Negative); Glucose Urine UA Norm (Normal); Ketones Urine Negative (Negative); Leukocyte Esterase Urine Negative (Negative); Nitrate Urine Negative (Negative); Protein Urine Neg (Negative); Urine Appearance Clear (CLEAR); Urine Color Yellow (Yellow); Urobilinogen Urine Norm (Negative); pH Urine 6.5 (5-7)
[2021-04-15 13:16] LABS: Alanine Aminotransferase 39 U/L (0-33); Albumin Level 3.9 g/dL (3.5-5.2); Alkaline Phosphatase 101 IU/L (35-105); Anion Gap 14.6 (5-19); Aspartate Amino Transferase 62 U/L (0-32); Blood Urea Nitrogen 10 mg/dL (8-23); C Reactive Protein 2.5 mg/L (0.0-4.9); Calcium 8.7 mg/dL (8.5-10.5); Carbon Dioxide 26 mmol/L (22-29); Chloride 103 mmol/L (98-107); Creatine Phosphokinase 61 U/L (26-192); Ferritin 210 ng/mL (15-150); Globulin 3.3 g/dL (1.3-4.6); Glucose 90 mg/dL (65-115); Iron 106 ug/dL (37-145); Osmolality Calculated 289 mOsm/kg (285-295); Potassium 3.6 mmol/L (3.5-5.1); Sodium 140 mmol/L (136-145); Total Bilirubin 0.8 mg/dL (0.15-1.2); Total Protein 7.2 g/dL (6.6-8.7)
[2021-04-15 13:41] LABS: Hepatitis B Core AB, Total Non-Reactive (Nonreactive); Hepatitis B Surface Antigen Non-Reactive (Nonreactive); Hepatitis C Virus Antibody Non-Reactive (Nonreactive)
[2021-04-15 13:54] LABS: Erythrocyte Sedimentation Rate 28 mm/hr (0-15)
[2021-04-15 15:04] LABS: Complement C3 129 mg/dL (90-180)
[2021-04-16 11:52] LABS: COMPLEMENT COMPONENT C3C 127 mg/dL (83-193); COMPLEMENT COMPONENT C4C 16 mg/dL (15-57)
[2021-04-16 13:33] LABS: COMPLEMENT, TOTAL (CH50) >60 U/mL (31-60)
[2021-04-16 16:18] LABS: Cyclic Citrullinated Peptide <16 UNITS
[2021-04-17 15:13] LABS: THYROID PEROXIDASE ANTIBODIES 1 IU/mL (<9)
[2021-04-18 13:27] LABS: CENTROMERE B ANTIBODY <1.0 NEG AI (<1.0 NEG); JO-1 ANTIBODY <1.0 NEG AI (<1.0 NEG); RNP ANTIBODY <1.0 NEG AI (<1.0 NEG); SCL-70 ANTIBODY <1.0 NEG AI (<1.0 NEG); SJOGREN'S ANTIBODY (SS-A) <1.0 NEG AI (<1.0 NEG); SM ANTIBODY <1.0 NEG AI (<1.0 NEG); SS-B <1.0 NEG AI (<1.0 NEG)
[2021-04-19 14:32] LABS: ANA SCREEN, IFA POSITIVE (NEGATIVE)
[2021-04-23 11:47] LABS: DNA AB (DS) CRITHIDIA,IFA NEGATIVE (NEGATIVE)
== END 2021-04-15 12:03 | disposition home or self-care (01) ==
PROVIDERS: PCP Nurse Practitioner Family; Visit Provider Internal Medicine
DX: R76.8 Other specified abnormal immunological findings in serum (principal); D86.9 Sarcoidosis, unspecified; Z51.81 Encounter for therapeutic drug level monitoring; Z11.59 Encounter for screening for other viral diseases
CPT/HCPCS: 36415; 80053; 81003; 82550; 82728; 83540; 85025; 85651; 86140; 86160; 86162; 86235; 86255; 86376; 86431; 86704; 86803; 87340

== ENCOUNTER 2021-06-04 10:05 | Outpatient (CLI) | payer MEDICARE, MEDICAID, SELFPAY ==
--- NOTE | 2021-06-04 10:15 | US_ITS ---
WS: [id number] ULTRASOUND ABDOMEN LIMITED CLINICAL INFORMATION: R76.8 - Other specified abnormal immunological findings i... COMPARISON: None. FINDINGS: Liver Size: Normal. Craniocaudal length: 14.1 cm. Echogenicity: Normal. Surface nodularity: None. Mass (size and location): None. Bile ducts Intrahepatic ducts: Normal. Common bile duct diameter: 0.5 cm. Gallbladder Normal. Gallstones: None. Gallbladder sludge: None. Gallbladder wall thickening: None. Pericholecystic fluid: None. Sonographic Driscoll sign: Absent. Pancreas Normal as visualized. Right kidney: Normal. Hydronephrosis: None. Size: 9.3 cm x 5.3 cm x 4.6 cm. Abdominal aorta and IVC Visualized portions are normal. Ascites: None. US/US abdomen limited [id number] IMPRESSION: Normal abdominal ultrasound
== END 2021-06-04 10:06 | disposition home or self-care (01) ==
PROVIDERS: PCP Nurse Practitioner Family; Visit Provider Internal Medicine
DX: R76.8 Other specified abnormal immunological findings in serum (principal)
CPT/HCPCS: 76705

== ENCOUNTER → 2021-11-12 09:00 | Outpatient (BNVA) | payer MEDICARE, MEDICAID, SELFPAY | PROVIDERS: PCP Nurse Practitioner Family; Referring Provider Nurse Practitioner Family; Visit Provider Nurse Practitioner Women's Health | DX: M17.12 Unilateral primary osteoarthritis, left knee (principal); N95.0 Postmenopausal bleeding | CPT/HCPCS: 87624 ==

== ENCOUNTER → 2021-11-19 15:28 | Outpatient (BNVA) | payer MEDICARE, MEDICAID, SELFPAY | PROVIDERS: PCP Nurse Practitioner Family; Visit Provider Nurse Practitioner Women's Health | DX: N95.0 Postmenopausal bleeding (principal); N85.00 Endometrial hyperplasia, unspecified | CPT/HCPCS: 76830 ==

== ENCOUNTER → 2021-11-25 14:41 | Outpatient (BNVA) | payer MEDICARE, MEDICAID, SELFPAY | PROVIDERS: PCP Nurse Practitioner Family; Visit Provider Nurse Practitioner Women's Health | DX: N95.0 Postmenopausal bleeding (principal) | CPT/HCPCS: 88305 ==

== ENCOUNTER 2022-01-15 13:26 | Outpatient (CLI) | payer MEDICARE, MEDICAID, SELFPAY ==
--- NOTE | 2022-01-15 13:50 | XR_ITS ---
WS: [id number] SCREENING DEXA SCAN truedash CLINICAL INFORMATION: SCREENING COMPARISON: FINDINGS: The L1-L4 bone mineral density measures 1.566 g/cm2. This corresponds to a T score score of 3.2 and Z score of 4.3. Left femoral neck bone mineral density measures 1.053 g/cm2. This corresponds to a T score of 0.4 and Z score of 1.4. Right femoral neck bone mineral density measures 0.974 g/cm2. This corresponds to a T score -0.3of an d Z score of 0.8. Mean femoral neck bone mineral density measures 1.013 g/cm2. This corresponds to a T score of 0.0 and Z score of 1.1. XR/XR DEXA axial skeleton* [id number] IMPRESSION: Normal bone mineralization. Patient's FRAX calculated 10 year probability for major osteoporotic fracture i s 14.0 % and osteoporotic hip fracture is 2.5%.
== END 2022-01-15 13:27 | disposition home or self-care (01) ==
LOC: RAD 13:30
PROVIDERS: PCP Nurse Practitioner Family; Visit Provider Nurse Practitioner Family
DX: Z13.820 Encounter for screening for osteoporosis (principal)
CPT/HCPCS: 77080

== ENCOUNTER 2022-01-28 08:46 | Outpatient (CLI) | payer MEDICARE, MEDICAID, SELFPAY ==
--- NOTE | 2022-01-28 08:52 | MM_ITS ---
WS: [id number] BILATERAL 3D TOMOSYNTHESIS DIGITAL SCREENING MAMMOGRAPHY WITH CAD CLINICAL INFORMATION: SCREENING HISTORY: Screening mammogram. No current complaints. COMPARISON: [id number] TECHNIQUE: Bilateral CC and MLO views. FINDINGS: The breasts are composed of heterogeneous fibroglandular density tissue, which can limit the detectio n of small underlying mass lesions. Dense fibroglandular tissue upper outer breasts bilaterally uncha nged. Punctate and lucent centered calcifications. No suspicious mass, asymmetry, calcifications, or architectural distortion. No evidence of malignancy. MM/[place] [id number] IMPRESSION: BI-RADS: 2-Benign FOLLOW UP: 1 Year Follow-up Recommend return to annual screening mammography.
== END 2022-01-28 08:47 | disposition home or self-care (01) ==
LOC: RAD 08:48
PROVIDERS: PCP Nurse Practitioner Family; Visit Provider Nurse Practitioner Family
DX: Z12.31 Encounter for screening mammogram for malignant neoplasm of breast (principal)
CPT/HCPCS: 77063; 77067

== ENCOUNTER 2022-05-27 10:10 | Outpatient (CLI) | payer MEDICARE, MEDICAID, SELFPAY ==
--- NOTE | 2022-05-27 11:17 | MR_ITS ---
WS: [id number] MRI LUMBAR SPINE NONCONTRAST HISTORY: Muscle spasms and spondylolisthesis. Constant low back pain. COMPARISON: None available. TECHNIQUE: Sagittal and axial multisequence imaging is submitted. Axial imaging is significantly degraded by motion artifact. Increase in thoracic kyphosis. Multilevel level small central disc protrusions. The largest at T6-7 c ausing mild deformity the ventral cord. There is an additional moderate size disc protrusion at T9-10 . Increased in the lumbar lordosis and RIGHT scoliosis. Degenerative disc disease and osteophytosis. L4 anterolisthesis by 4 mm. 2 to 3 mm retrolisthesis of L1 and L2. No acute fractures. Conus terminates normally at L1-2 disc level. Fibroid uterus. Multiple fibroids with the largest measuring 1.9 cm. There is also fluid distention o f the endometrium to 1.3 cm which needs further evaluation. Abnormal endometrium was described on a p rior transvaginal ultrasound from 11/19/2021. L1-L2: Diffuse moderate annular disc bulging asymmetric to the LEFT. Ligamentum flavum and facet arth ritis. Mild central stenosis. There is disc contact and more significant stenosis of the LEFT subarti cular recess and foramen. L2-L3: Osteophytic ridging and annular disc bulging with moderate ligamentum flavum and facet arthrit is. Central disc protrusion and a smaller protrusion in the LEFT subarticular recess. Mild central st enosis with moderate bilateral subarticular recess and LEFT foraminal stenosis. Mild RIGHT foraminal stenosis. L3-L4: Diffuse osteophytic ridging and annular disc bulge. RIGHT paracentral disc protrusion causing moderate stenosis of the RIGHT subarticular recess. Mild central and LEFT subarticular recess stenosi s and moderate bilateral foraminal stenosis. L4-L5: Annular disc bulging and osteophytic ridging with severe facet and ligamentum flavum hypertrop hy. Increase fluid in the RIGHT facet joint. Severe central, bilateral subarticular recess and modera te foraminal stenosis. Most significant narrowing of the LEFT subarticular recess. L5-S1: Mild facet arthritis. MR/MR lumbar spine wo con* [id number] IMPRESSION: 1. Advanced degenerative spondylitic changes throughout the lumbar spine. Dege nerative dextroscoliosis. 2. Severe central, bilateral subarticular recess and moderate foraminal stenos is at L4-5 is multifactorial as described above. The most significant stenosis involves the LEFT subarticular recess. 3. Mild central stenosis with LEFT subarticular recess and foraminal stenosis at L1-2. 4. Mild central stenosis with moderate bilateral subarticular recess and LEFT foraminal stenosis at L2-3 due to disc and facet disease. 5. RIGHT paracentral disc protrusion at L3-4 causing a moderate RIGHT subartic ular recess stenosis. Additional mild central and LEFT subarticular recess and moderate bilateral foraminal stenosis at L3-4. 6. Fibroid uterus. Multiple fibroids are identified. 7. Fluid distention of the endometrium. Abnormal endometrium as noted on the p rior transvaginal ultrasound 11/19/2021. Follow-up transvaginal ultrasound may b e necessary if this abnormality has not been evaluated.
== END 2022-05-27 10:11 | disposition home or self-care (01) ==
LOC: RAD 10:12
PROVIDERS: PCP Nurse Practitioner Family; Visit Provider Physician Assistant
DX: M43.16 Spondylolisthesis, lumbar region (principal); M41.86 Other forms of scoliosis, lumbar region; M48.061 Spinal stenosis, lumbar region without neurogenic claudication; M51.26 Other intervertebral disc displacement, lumbar region; D25.9 Leiomyoma of uterus, unspecified
CPT/HCPCS: 72148

== ENCOUNTER → 2022-06-18 12:44 | Outpatient (BNVA) | payer MEDICARE, MEDICAID, SELFPAY | PROVIDERS: PCP Nurse Practitioner Family; Referring Provider Physician Assistant; Visit Provider Physician Assistant | DX: M43.16 Spondylolisthesis, lumbar region (principal); M54.16 Radiculopathy, lumbar region | CPT/HCPCS: 99203 ==

== ENCOUNTER → 2022-07-22 09:05 | Outpatient (BNVA) | payer MEDICARE, MEDICAID, SELFPAY | PROVIDERS: PCP Nurse Practitioner Family; Visit Provider Anesthesiology Pain Medicine | DX: G89.29 Other chronic pain (principal); M54.16 Radiculopathy, lumbar region; M43.16 Spondylolisthesis, lumbar region; M47.816 Spondylosis without myelopathy or radiculopathy, lumbar region; M79.604 Pain in right leg; M79.605 Pain in left leg | CPT/HCPCS: 99205 ==

== ENCOUNTER → 2022-08-06 15:13 | Outpatient (BNVA) | payer MEDICARE, MEDICAID, SELFPAY | PROVIDERS: PCP Nurse Practitioner Family; Visit Provider Podiatrist Foot & Ankle Surgery | DX: E11.8 Type 2 diabetes mellitus with unspecified complications (principal); I73.9 Peripheral vascular disease, unspecified; L60.8 Other nail disorders; L60.3 Nail dystrophy; M21.611 Bunion of right foot; M21.612 Bunion of left foot | CPT/HCPCS: 11721 ==

== ENCOUNTER → 2022-08-10 14:36 | Outpatient (BNVA) | payer MEDICARE, MEDICAID, SELFPAY | PROVIDERS: PCP Nurse Practitioner Family; Visit Provider Anesthesiology Pain Medicine | DX: G89.29 Other chronic pain (principal); M47.816 Spondylosis without myelopathy or radiculopathy, lumbar region | CPT/HCPCS: 64493; 64494; 64495; J3490 ==

== ENCOUNTER → 2022-10-08 13:50 | Outpatient (BNVA) | payer MEDICARE, MEDICAID, SELFPAY | PROVIDERS: PCP Nurse Practitioner Family; Visit Provider Podiatrist Foot & Ankle Surgery | DX: E11.8 Type 2 diabetes mellitus with unspecified complications (principal); L60.8 Other nail disorders; L60.3 Nail dystrophy; M21.611 Bunion of right foot; M21.612 Bunion of left foot; I73.9 Peripheral vascular disease, unspecified | CPT/HCPCS: 11721 ==

== ENCOUNTER → 2023-01-26 11:07 | Outpatient (BNVA) | payer BC, MEDICAID, SELFPAY | PROVIDERS: Visit Provider Podiatrist Foot & Ankle Surgery | DX: I73.9 Peripheral vascular disease, unspecified (principal); L60.8 Other nail disorders; L60.3 Nail dystrophy; M21.611 Bunion of right foot; M21.612 Bunion of left foot | CPT/HCPCS: 11721 ==

== ENCOUNTER → 2023-02-02 09:46 | Outpatient (BNVA) | payer MEDICAID, SELFPAY | PROVIDERS: Visit Provider Otolaryngology | DX: H69.82 Other specified disorders of Eustachian tube, left ear (principal); M26.623 Arthralgia of bilateral temporomandibular joint | CPT/HCPCS: 99203 ==

== ENCOUNTER → 2023-03-31 10:59 | Outpatient (BNVA) | payer MEDICARE, MEDICAID, SELFPAY | PROVIDERS: Visit Provider Anesthesiology Pain Medicine | DX: G89.29 Other chronic pain (principal); M54.16 Radiculopathy, lumbar region; M43.16 Spondylolisthesis, lumbar region; M47.816 Spondylosis without myelopathy or radiculopathy, lumbar region | CPT/HCPCS: 99214 ==

== ENCOUNTER → 2023-04-19 14:04 | Outpatient (BNVA) | payer MEDICARE, MEDICAID, SELFPAY | PROVIDERS: Visit Provider Anesthesiology Pain Medicine | DX: G89.29 Other chronic pain (principal); M47.816 Spondylosis without myelopathy or radiculopathy, lumbar region | CPT/HCPCS: 64493; 64494; 64495; J3490 ==

== ENCOUNTER → 2023-05-10 09:03 | Outpatient (BNVA) | payer MEDICARE, MEDICAID, SELFPAY | PROVIDERS: Visit Provider Anesthesiology Pain Medicine | DX: G89.29 Other chronic pain (principal); M47.816 Spondylosis without myelopathy or radiculopathy, lumbar region; M54.16 Radiculopathy, lumbar region; M43.16 Spondylolisthesis, lumbar region | CPT/HCPCS: 99214 ==

== ENCOUNTER → 2023-05-12 13:16 | Outpatient (BNVA) | payer MEDICARE, MEDICAID, SELFPAY | PROVIDERS: Visit Provider Podiatrist Foot & Ankle Surgery | DX: I73.9 Peripheral vascular disease, unspecified (principal); L60.8 Other nail disorders; L60.3 Nail dystrophy; M21.611 Bunion of right foot; M21.612 Bunion of left foot | CPT/HCPCS: 11721 ==

== ENCOUNTER → 2023-05-25 15:15 | Outpatient (BNVA) | payer MEDICARE, MEDICAID, SELFPAY | PROVIDERS: Referring Provider Anesthesiology Pain Medicine; Visit Provider Physician Assistant | DX: G89.29 Other chronic pain; M47.816 Spondylosis without myelopathy or radiculopathy, lumbar region | CPT/HCPCS: 99213 ==

== ENCOUNTER → 2023-08-18 09:09 | Outpatient (BNVA) | payer MEDICARE, MEDICAID, SELFPAY | PROVIDERS: PCP Physician Assistant; Visit Provider Podiatrist Foot & Ankle Surgery | DX: L60.8 Other nail disorders (principal); L60.3 Nail dystrophy; M21.611 Bunion of right foot; M21.612 Bunion of left foot; I73.9 Peripheral vascular disease, unspecified | CPT/HCPCS: 11721 ==

== ENCOUNTER → 2023-11-09 14:53 | Outpatient (BNVA) | payer MEDICARE, MEDICAID, SELFPAY | PROVIDERS: PCP Physician Assistant; Visit Provider Podiatrist Foot & Ankle Surgery | DX: L60.8 Other nail disorders (principal); L60.3 Nail dystrophy; M21.611 Bunion of right foot; M21.612 Bunion of left foot; I73.9 Peripheral vascular disease, unspecified | CPT/HCPCS: 11721 ==

== ENCOUNTER → 2024-02-15 11:01 | Outpatient (BNVA) | payer MEDICARE, MEDICAID, SELFPAY | PROVIDERS: PCP Physician Assistant; Visit Provider Podiatrist Foot & Ankle Surgery | DX: L60.3 Nail dystrophy (principal); M21.611 Bunion of right foot; M21.612 Bunion of left foot; I73.9 Peripheral vascular disease, unspecified | CPT/HCPCS: 11721 ==

== ENCOUNTER → 2024-05-17 13:19 | Outpatient (BNVA) | payer MEDICARE, MEDICAID, SELFPAY | PROVIDERS: PCP Physician Assistant; Visit Provider Podiatrist Foot & Ankle Surgery | DX: L60.3 Nail dystrophy (principal); M21.611 Bunion of right foot; M21.612 Bunion of left foot; I73.9 Peripheral vascular disease, unspecified | CPT/HCPCS: 11721 ==

== ENCOUNTER 2024-07-23 08:55 | Inpatient (IN) | payer MEDICARE, MEDICAID, SELFPAY ==
[2024-07-23] VITALS (9 sets, daily range): BP systolic 157–178; BP diastolic 76–97; PULSE 51–61; RESP 18–20; TEMP 36.7–36.8; O2SAT 94–99; BMI 34.2
--- NOTE | 2024-07-23 09:35 | XRR_ITS ---
PROCEDURE INFORMATION: Exam: XR Chest Exam date and time: 07/23/2024 9:41 AM Age: 73 years old Clinical indication: Patient HX: AMS, cough, HTN TECHNIQUE: Imaging protocol: Radiologic exam of the chest. Views: 1 view. COMPARISON: CR XR chest 2V* [id number] 02/28/2021 3:32 PM FINDINGS: Lungs: No focal consolidation. Pleural spaces: No evidence of pneumothorax. No evidence of pleural effusion. Heart/Mediastinum: Cardiomediastinal silhouette is within normal limits. Bones/joints: No evidence of acute osseous abnormality. XR/XR chest 1V portable [id number] IMPRESSION: 1. No acute cardiopulmonary abnormality.
--- NOTE | 2024-07-23 09:35 | CTR_ITS ---
PROCEDURE INFORMATION: Exam: CT Head Without Contrast Exam date and time: 07/23/2024 9:46 AM Age: 73 years old Clinical indication: Altered mental status/memory loss; Additional info: AMS TECHNIQUE: Imaging protocol: Computed tomography of the head without contrast. Radiation optimization: All CT scans at this facility use at least one of these dose optimization techniques: automated exposure control; mA and/or kV adjustment per patient size (includes targeted exams where dose is matched to clinical indication); or iterative reconstruction. COMPARISON: CT head wo con* [id number] 08/01/2019 4:39 PM RADIATION DOSE METRICS: Total DLP (mGy-cm): 1031.11 FINDINGS: Brain: Bilateral periventricular white matter and centrum semiovale hypodensities, consistent with chronic ischemic small vessel disease. Mineralization of bilateral basal ganglia, age-related. No recent infarct, intracranial bleed or mass effect. Cerebral ventricles: No ventriculomegaly. Paranasal sinuses: Frothy secretions in the left maxillary sinus. Mastoid air cells: Visualized mastoid air cells are well aerated. Orbital cavities: Post bilateral cataract surgery. Bones: Unremarkable. No acute fracture. Soft tissues: Unremarkable. CT/CT head wo con* [id number] IMPRESSION: No large territorial infarct or intracranial bleed.
--- NOTE | 2024-07-23 09:59 | ECG_ITS ---
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 Measurements Intervals [place] Rate: 57 P: -5 IL: 166 QRS: 7 QRSD: 77 T: 14 QT: 417 QTc: 407 Interpretive Statements SINUS BRADYCARDIA LOW QRS VOLTAGE IN PRECORDIAL LEADS [QRS DEFLECTION < 1.0 mV IN CHEST LEADS] Compared to ECG 01/12/2020 09:50:48 ST (T wave) deviation no longer present Electronically Signed On 07-24-2024 18:48:20 CDT by Lio Umana M.D. [id number]
--- NOTE | 2024-07-23 10:06 | PC.NURSE ---
PATIENT ASKS STAFF THAT ENTERS ROOM ABOUT HER MONEY. NURSE ASKED PATIENT IF SHE WANTED US TO LOCK IT AWAY WITH SECURITY. PATIENT STATES NO, I JUST DON'T WANT TO LOSE IT. NURSE STATES THAT WOULD BE THE BEST OPTION BUT PATIENT CHOOSES TO KEEP WALLET WITH HER.
[2024-07-23 10:54] LABS: Basophils # 0.1 10^3/uL (0.0-0.1); Basophils % 0.7 %; Eosinophils # 0.1 10^3/uL (0.0-0.8); Hematocrit 38.1 % (36-47); Lymphocytes % 24.2 %; Mean Corpuscular HGB Conc 34.9 g/dL (30-55); Mean Corpuscular Hemoglobin 32.5 pg (27-33); Mean Corpuscular Volume 93.2 fl (85-98); Monocytes # 0.9 10^3/uL (0.2-0.9); Monocytes % 11.4 %; Neutrophils # 5.14 10^3/uL (1.8-7.7); Neutrophils % 62.5 %; Nucleated Red Blood Cells % 0 %; Platelet Count 157 10^3/cmm (157-399); Red Blood Count 4.09 10^6/uL (3.85-5.65); Red Cell Distribution Width 11.7 % (12.1-15.1); White Blood Count 8.23 10^3/uL (3.29-11.43)
[2024-07-23 11:09] LABS: Alanine Aminotransferase 34 U/L (0-33); Alkaline Phosphatase 53 U/L (35-105); Anion Gap 15.2 (5-19); Aspartate Amino Transferase 46 U/L (0-32); Blood Urea Nitrogen 21 mg/dL (8-23); Calcium 9.4 mg/dL (8.5-10.5); Carbon Dioxide 23 mmol/L (22-29); Chloride 106 mmol/L (98-107); Creatinine Clr Calc Pharmacy 59.2566; Globulin 2.7 g/dL (1.3-4.6); Glucose 86 mg/dL (65-115); Osmolality Calculated 294 mOsm/kg (285-295); Potassium 3.2 mmol/L (3.5-5.1); Sodium 141 mmol/L (136-145); Total Bilirubin 1.5 mg/dL (0.15-1.2); Total Protein 6.7 g/dL (6.6-8.7)
[2024-07-23 11:11] LABS: Alcohol Level < 10 mg/dL (0-10)
[2024-07-23 11:14] LABS: Troponin(5th) Baseline 12 ng/L (0-10)
--- NOTE | 2024-07-23 12:02 | ECG_ITS ---
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 Measurements Intervals [place] Rate: 58 P: 4 ME: 164 QRS: 3 QRSD: 82 T: 2 QT: 421 QTc: 414 Interpretive Statements SINUS BRADYCARDIA LOW QRS VOLTAGE IN PRECORDIAL LEADS [QRS DEFLECTION < 1.0 mV IN CHEST LEADS] Compared to ECG 01/12/2020 09:50:48 ST (T wave) deviation no longer present Electronically Signed On 07-24-2024 18:56:53 CDT by Lio mUana M.D. [id number]
[2024-07-23] MEDS: sodium chloride 0.9% 1,000 ML 999 ML IV (12:41)
[2024-07-23 13:14] LABS: Bilirubin Urine Negative (Negative); Blood Urine Negative (Negative); Glucose Urine UA Negative (Normal); Ketones Urine 1+ (Negative); Leukocyte Esterase Urine Negative (Negative); Nitrate Urine Negative (Negative); Protein Urine Trace (Negative); Specific Gravity, Urine 1.025 (1.005-1.030); Urine Appearance Clear (CLEAR); Urine Color Dark Yellow (Yellow)
[2024-07-23 13:16] LABS: Add Urine Microscopic? YES; Bacteria Urine None Seen /hpf; Hyaline Casts Urine 0.81 /lpf; RBC Urine 0-2 /hpf (0-2); Squamous Epithelial Cell Urine 0-5 /hpf (0-5)
[2024-07-23 13:17] LABS: Troponin 5 2HR 10.72 ng/L (0-10)
[2024-07-23 13:21] LABS: Amphetamines Screen Urine Negative (Negative); Barbiturates Screen Urine Negative (Negative); Benzodiazepines Screen Urine Negative (Negative); Cocaine Screen Urine Negative (Negative); Opiate Screen Urine Negative (Negative); PCP Screen Urine Negative (Negative); THC Screen Urine Negative (Negative)
[2024-07-23 13:24] LABS: Troponin 5 2HR Delta -1.28 ABS# (0-10)
[2024-07-23 13:32] LABS: UA Slide Review UA Slide Review Perf
[2024-07-23 13:33] LABS: Amorphous Sediment Urine 1+ /hpf
--- NOTE | 2024-07-23 15:27 | ED_ITS ---
HPI - Altered Mental Status 2 General: Chief Complaint: Altered Mental Status Stated Complaint: AMS Time Seen by Provider: 07/23/24 08:57 History of Present Illness: This patient is a 73-year-old presenting with confusion. She lives at home alone and ambulance was called this morning by neighbors due to patient's odd behavior. She was outside asking for help but could not tell anyone why she needed help. Apparently yesterday her daughter brought her to the ER for evaluation but they left due to the long wait in the waiting room. I spoke on the phone with her daughter today and she told me this has been going off and on since Wednesday. She said that her mother has been confused and delusional. She said that on Wednesday or the patient seemed to be back to normal but last night and today has been very confused again. Her daughter is not aware of any fevers, chills, vomiting. She does note that the patient has not eaten much at all in the last 4 days. She thinks that she is only had about half of a breakfast bar. She also does not know how if her fluid intake has been adequate. No history of drug or alcohol use that she knows of. Daughter told me there was an episode similar to this in 2015 or 2016. At that time the patient was diagnosed with a stroke. The patient is on medications for high blood pressure and atorvastatin for cholesterol. She takes a baby aspirin a day. Otherwise her medical history is fairly unremarkable. On my exam in the ER she is able to tell me the day of the week, the month, the year. She is able to tell me her name and date of . She says that she feels bad but cannot specify how or what is wrong. Related Data Home Medications Medication Instructions Recorded Confirmed aspirin 81 mg tablet,delayed 81 mg PO DAILY 12/14/19 05/17/24 release cholecalciferol (vitamin D3) 25 1,000 unit PO DAILY 01/12/20 05/17/24 mcg/drop (1,000 unit/drop) oral drops atorvastatin 40 mg tablet 40 mg PO DAILY 04/15/21 05/17/24 lisinopril 20 1 tab PO DAILY 11/12/21 05/17/24 mg-hydrochlorothiazide 12.5 mg tablet Previous Rx's Medication Instructions Recorded hinged knee brace #1 ea 12/16/20 diclofenac sodium 75 mg 75 mg PO BID #60 tabs 05/25/23 tablet,delayed release Allergies Allergy/AdvReac Type Severity Reaction Status Date / Time metformin Allergy Unknown Verified 05/17/24 13:21 Penicillins Allergy Unknown Verified 05/17/24 13:21 sulfamethoxazole Allergy Unknown Verified 05/17/24 13:21 [From Bactrim] trimethoprim [From Bactrim] Allergy Unknown Verified 05/17/24 13:21 trazodone [From Desyrel] AdvReac NAUSEA Verified 05/17/24 13:21 PFSH ED 2 PFSH: Medical History No pertinent past medical history neghx: dm,thyroid,dvt/pe PCP: Smiley Sands Macrocytosis without anemia DDD (degenerative disc disease), lumbar Primary osteoarthritis of right knee Hx of stroke without residual deficits Hypertension Surgical History H/O colonoscopy History of liver biopsy H/O eye surgery BILATERAL H/O tubal ligation Status post right knee replacement Family History Father , DOES NOT KNOW AGE Hypertension Mother Breast cancer, Onset Age: 80 Denies family history of Colon cancer Ovarian cancer Diabetes Heart disease Hypercholesteremia Uterine cancer Thyroid disease Stroke Social History Smoking and tobacco/nicotine status: never used tobacco/nicotine Second hand smoke exposure: No Alcohol intake: never Substance/Drug Use: never Physical Exam 2 Const: COMMON NORMALS: no acute distress, patient oriented x3, no limitations and alert GENERAL APPEARANCE: cooperative and comfortable HENMT: HEAD & SCALP: normal to inspection FACE & SINUS: normal facial exam Eye: GENERAL EYE: appearance normal, both eyes and all related structures Neck/C-Spine: COMMON NORMALS: supple, no meningeal signs and no JVD Chest: COMMONS NORMALS: normal inspection of the chest Resp: COMMON NORMALS: normal respiratory effort, No use of accessory muscles and clear to auscultation bilaterally AUSCULTATION: clear to auscultation bilaterally Cardio: COMMON NORMALS: no JVD, regular rate, regular rhythm and No murmurs present (Cardio) RATE: regular rate RHYTHM: regular rhythm GI: COMMON NORMALS: Normal to inspection, nondistended, normoactive bowel sounds present, Soft to palpation and non-tender INSPECTION: Yes normal to inspection AUSCULTATION: Yes normoactive bowel sounds PALPATION: Yes Soft to palpation Back/Pelvis: COMMON NORMALS: thoracic and lumbar spine normal to inspection Extremity: COMMON NORMALS: normal to inspection Neuro: COMMON NORMALS: patient oriented x3, moves all extremities, no focal motor deficits and no sensory deficits noted SENSORIUM/ORIENTATION: Yes alert MENINGEAL SIGNS: Yes no meningeal signs OTHER: Confused. Inconsistent answers to questions. Psych: COMMON NORMALS: mental status grossly normal, cooperative and normal affect Skin: COMMON NORMALS: no rashes or lesions noted and turgor normal GENERAL SKIN EXAM: no rashes or lesions noted and turgor normal Course 2 Vital Signs: Vital signs: Vital Signs Temperature 98.1 F 07/23/24 08:57 Pulse Rate 52 L 07/23/24 18:30 Respiratory Rate 18 07/23/24 08:57 Blood Pressure 157/87 07/23/24 18:30 Pulse Oximetry 99 07/23/24 18:30 Oxygen Delivery Me thod Room Air 07/23/24 15:37 MDM - Altered Mental Status Medical Decision Making Patient appears to be having intermittent episodes of significant altered mental status. She does not appear to be infected in any way. I do not see any other evidence of stroke. Vision is normal. No known medication changes or substance abuse. Prior episode was diagnosed as a stroke but I do not have any details of that medical workup. I discussed patient with Dr. Briseno for neurology. She felt like the patient might be able to go home depending on how closely her daughter could observe her there. If she does get admitted to the hospitalist she would see her in consult. She suggested that the patient could be having atypical seizures and recommended an EEG. I will speak again with the patient and daughter to see what their preferences. I do not feel that the patient is safe to go home. I discussed with Dr. Cardenas who agreed to admit for further observation. Lab Data 07/23/24 10:50 07/23/24 10:[address] 07/23/24 09:35 IMPRESSION: No large territorial infarct or intracranial bleed. Laboratory Results WBC 8.23 10^3/uL (3.29-11.43) 07/23/24 10:50 RBC 4.09 10^6/uL (3.85-5.65) 07/23/24 10:50 Hgb 13.30 g/dL (11.27-16.99) 07/23/24 10:50 Hct 38.1 % (36-47) 07/23/24 10:50 MCV 93.2 fl (85-98) 07/23/24 10:50 MCH 32.5 pg (27-33) 07/23/24 10:50 MCHC 34.9 g/dL (30-55) 07/23/24 10:50 RDW 11.7 % (12.1-15.1) L 07/23/24 10:50 Plt Count 157 10^3/cmm (157-399) 07/23/24 10:50 MPV 10.0 fL (7.4-10.4) 07/23/24 10:50 Neut % (Auto) 62.5 % 07/23/24 10:50 Lymph % (Auto) 24.2 % 07/23/24 10:50 [place] % (Auto) 11.4 % 07/23/24 10:50 Eos % (Auto) 1.0 % 07/23/24 10:50 Baso % (Auto) 0.7 % 07/23/24 10:50 Neut # (Auto) 5.14 10^3/uL (1.8-7.7) 07/23/24 10:50 Lymph # (Auto) 2.0 10^3/uL (0.8-4.8) 07/23/24 10:50 [place] # (Auto) 0.9 10^3/uL (0.2-0.9) 07/23/24 10:50 Eos # (Auto) 0.1 10^3/uL (0.0-0.8) 07/23/24 10:50 Baso # (Auto) 0.1 10^3/uL (0.0-0.1) 07/23/24 10:50 Nucleated RBC % (auto) 0 % 07/23/24 10:50 Nucleated RBCs # 0.0 /100WBC 07/23/24 10:50 ESR 12 mm/hr (0-15) 07/23/24 10:50 Sodium 141 mmol/L (136-145) 07/23/24 10:50 Potassium 3.2 mmol/L (3.5-5.1) L 07/23/24 10:50 Chloride 106 mmol/L (98-107) 07/23/24 10:50 Carbon Dioxide 23 mmol/L (22-29) 07/23/24 10:50 Anion Gap 15.2 (5-19) 07/23/24 10:50 BUN 21 mg/dL (8-23) 07/23/24 10:50 Creatinine 0.8 mg/dL (0.5-0.9) 07/23/24 10:50 GFR Calculation Not Reportable 07/23/24 10:50 Glucose 86 mg/dL (65-115) 07/23/24 10:50 Calculated Osmolality 294 mOsm/kg (285-295) 07/23/24 10:50 Lactic Acid 1.5 mmol/L (0.5-2.2) 07/23/24 10:50 Calcium 9.4 mg/dL (8.5-10.5) 07/23/24 10:50 Iron 87 ug/dL (37-145) 07/23/24 12:49 Ferritin 333 ng/mL (15-150) H 07/23/24 12:49 Total Bilirubin 1.5 mg/dL (0.15-1.2) H 07/23/24 10:50 AST 46 U/L (0-32) H 07/23/24 10:50 ALT 34 U/L (0-33) H 07/23/24 10:50 Alkaline Phosphatase 53 U/L (35-105) 07/23/24 10:50 Troponin T Baseline 12 ng/L (0-10) H 07/23/24 10:50 Troponin T 120 Minute 10.72 ng/L (0-10) H 07/23/24 12:49 Delta Troponin T -1.28 ABS# (0-10) L 07/23/24 12:49 C-Reactive Protein 3.0 mg/L (0.0-4.9) 07/23/24 12:49 Total Protein 6.7 g/dL (6.6-8.7) 07/23/24 10:50 Albumin 4.0 g/dL (3.5-5.2) 07/23/24 10:50 Globulin 2.7 g/dL (1.3-4.6) 07/23/24 10:50 Procalcitonin 0.05 ng/mL (0-0.5) 07/23/24 12:49 TSH 1.10 uIU/mL (0.27-4.20) 07/23/24 10:50 Urine Color Dark yellow (Yellow) A 07/23/24 13:01 Urine Appearance Clear (CLEAR) 07/23/24 13:01 Urine pH 6.0 (5-7) 07/23/24 13:01 Ur Specific [place] 1.025 (1.005-1.030) 07/23/24 13:01 Urine Protein Trace (Negative) A 07/23/24 13:01 Urine Glucose (UA) Negative (Normal) 07/23/24 13:01 Urine Ketones 1+ (Negative) H 07/23/24 13:01 Urine Blood Negative (Negative) 07/23/24 13:01 Urine Nitrate Negative (Negative) 07/23/24 13:01 Urine Bilirubin Negative (Negative) 07/23/24 13:01 Urine Urobilinogen 1.0 mg/dL (Negative) 07/23/24 13:01 Ur Leukocyte Esterase Negative (Negative) 07/23/24 13:01 Urine RBC 0-2 /hpf (0-2) 07/23/24 13:01 Urine WBC 5-10 /hpf (0-5) H 07/23/24 13:01 Ur Squamous Epith Cells 0-5 /hpf (0-5) 07/23/24 13:01 Amorphous Sediment 1+ /hpf 07/23/24 13:01 Urine Bacteria None seen /hpf (NONE) 07/23/24 13:01 Hyaline Casts 0.81 /lpf 07/23/24 13:01 Salicylates < 0.3 mg/dL (3-10) L 07/23/24 12:49 Urine Opiates Screen Negative ng/mL (Negative) 07/23/24 13:01 Acetaminophen < 5.0 ug/mL (10-30) L 07/23/24 12:49 Ur Barbiturates Screen Negative ng/mL (Negative) 07/23/24 13:01 Ur Phencyclidine Scrn Negative ng/mL (Negative) 07/23/24 13:01 Ur Amphetamines Screen Negative ng/mL (Negative) 07/23/24 13:01 U Benzodiazepines Scrn Negative ng/mL (Negative) 07/23/24 13:01 Urine Cocaine Screen Negative ng/mL (Negative) 07/23/24 13:01 U Marijuana (THC) Screen Negative ng/mL (Negative) 07/23/24 13:01 Ethyl Alcohol < 10 mg/dL (0-10) 07/23/24 10:50 All radiology interpretation(s) finalized by discharge Discharge Plan Discharge Patient Disposition: Admitted As Inpatient Admit Provider: Musa Cardenas Clinical Impression: Altered mental status, Liver enzyme elevation Condition: Stable Coding Level of Care Code ED Attendant Honor Bar for Jerica Armstrong
--- NOTE | 2024-07-23 15:33 | ECG_ITS ---
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 Measurements Intervals [place] Rate: 42 P: 24 MA: 156 QRS: 11 QRSD: 78 T: 67 QT: 481 QTc: 404 Interpretive Statements SINUS BRADYCARDIA WITH SINUS ARRHYTHMIA LOW QRS VOLTAGE IN PRECORDIAL LEADS [QRS DEFLECTION < 1.0 mV IN CHEST LEADS] ST DEVIATION AND MODERATE T-WAVE ABNORMALITY, CONSIDER ANTERIOR ISCHEMIA [-0.1+ mV T-WAVE IN V3/V4] Compared to ECG 07/23/2024 12:02:25 T-wave abnormality now present Possible ischemia now present Electronically Signed On 07-24-2024 18:56:44 CDT by Lio Umana M.D. [id number]
--- NOTE | 2024-07-23 17:31 | MRR_ITS ---
PROCEDURE INFORMATION: Exam: MR Head Without Contrast Exam date and time: 07/23/2024 6:04 PM Age: 73 years old Clinical indication: Altered mental status/memory loss; Confusion or disorientation; Additional info: AMS TECHNIQUE: Imaging protocol: Magnetic resonance imaging of the head without contrast. COMPARISON: CT head wo con* [id number] 07/23/2024 9:46 AM FINDINGS: Brain: Symmetric areas of decreased signal intensity in the right and left basal ganglia on the gradient echo sequence. Findings suggest mineral deposition. No acute intracranial hemorrhage. No acute infarct. No acute infarct. No intra-axial or extra-axial masses. No midline shift. No extra-axial fluid collections. Andersen-white matter differentiation is unremarkable. Stable mild atrophy of the brain parenchyma. Multiple areas of increased signal intensity on T2 and FLAIR in the deep white matter, consistent with moderate microangiopathic change. Normal flow voids are present. Seventh and eighth cranial nerve complexes are unremarkable. No evidence for Chiari 1 malformation. No evidence for mesial temporal sclerosis. Cerebral ventricles: No hydrocephalus. Bones: Multilevel degenerative changes of varying severity in the visualized spine. Paranasal sinuses: Mild mucoperiosteal thickening in the bilateral ethmoid and left maxillary sinus with a small air-fluid level in the left maxillary sinus. Mastoid air cells: Normal as visualized. No mastoid effusion. Orbital cavities: Globes and lenses, extraocular muscles, and optic nerves are intact bilaterally. No acute intraorbital abnormality. Globes and lenses, extraocular muscles, and optic nerves are intact bilaterally. No acute intraorbital abnormality. Nasal cavity: Suzette bullosa of the right middle turbinate. Soft tissues: No acute abnormality of the extracranial soft tissues. MR/MR head wo con* [id number] IMPRESSION: 1. No acute abnormality of the brain. 2. Sinus disease with findings suspicious for acute sinusitis in the left maxillary sinus. 3. Stable mild atrophy of the brain parenchyma. 4. Moderate white matter microangiopathic change. 5. Incidental/nonacute findings are listed in the report.
--- NOTE | 2024-07-23 17:34 | P.HP_ITS ---
Providers/Chief Complaint 2 Primary Care Provider: Catherine Hernández Chief Complaint: AMS History of Present Illness Pili Donohue is a 73 year old female with a past medical history of CVA, hypertension, who presents to [facility] to altered mental status. Patient is currently alert to person, not to place, not to time, she can follow commands she knows her name she knows her birthdate she knows her address she does not know why she is here in the hospital she does not know how she ended up here, she does tell me that her neighbor called the police, because she was confused, she does not remember the events of this morning, she does not remember what she had for dinner last night she tells me that she lives at home by herself at times she tells me that she takes care of herself but then at other times she tells me that there is nobody there for her and she does not know how she gets her food, she tells me that she drives, but is not able to tell me what car she has, she tells me that she is not feeling well, that is her only complaint, but no specific complaints no facial droop, no slurring of words, no focal weakness, no lightheadedness, no dizziness, no nausea, no vomiting, no chest pain, no palpitations, no abdominal pain, no back pain, no falls, no new rashes, no visual deficits no headache, no neck pain, no neck stiffness, no seizure-like episodes, no family members at bedside to help with history taking Review of Systems 2 Const: Reports: fatigue and malaise; Denies: fever(s) or chills Card: Denies: chest pain Resp: Denies: dyspnea GI: Denies: abdominal pain Neuro: Reports: confusion; Denies: headache(s), numbness in extremities, weakness in extremities, lack of coordination or dizziness Medications/Allergies Home Medications Medication Instructions Recorded Confirmed Last Taken Type aspirin 81 mg tablet,delayed 81 mg PO DAILY 12/14/19 05/17/24 03/23/20 History release cholecalciferol (vitamin D3) 25 1,000 unit PO DAILY 01/12/20 05/17/24 03/23/20 History mcg/drop (1,000 unit/drop) oral drops hinged knee brace #1 ea 12/16/20 05/17/24 Unknown Rx atorvastatin 40 mg tablet 40 mg PO DAILY 04/15/21 05/17/24 Unknown History lisinopril 20 1 tab PO DAILY 11/12/21 05/17/24 Unknown History mg-hydrochlorothiazide 12.5 mg tablet diclofenac sodium 75 mg 75 mg PO BID #60 tabs 05/25/23 05/17/24 Unknown Rx tablet,delayed release Allergies Allergy/AdvReac Type Severity Reaction Status Date / Time metformin Allergy Unknown Verified 05/17/24 13:21 Penicillins Allergy Unknown Verified 05/17/24 13:21 sulfamethoxazole Allergy Unknown Verified 05/17/24 13:21 [From Bactrim] trimethoprim [From Bactrim] Allergy Unknown Verified 05/17/24 13:21 trazodone [From Desyrel] AdvReac NAUSEA Verified 05/17/24 13:21 PFSH Acute 2 PFSH: Medical History No pertinent past medical history neghx: dm,thyroid,dvt/pe PCP: Smiley Sands Macrocytosis without anemia DDD (degenerative disc disease), lumbar Primary osteoarthritis of right knee Hx of stroke without residual deficits Hypertension Surgical History H/O colonoscopy History of liver biopsy H/O eye surgery BILATERAL H/O tubal ligation Status post right knee replacement Family History Father , DOES NOT KNOW AGE Hypertension Mother Breast cancer, Onset Age: 80 Denies family history of Colon cancer Ovarian cancer Diabetes Heart disease Hypercholesteremia Uterine cancer Thyroid disease Stroke Social History Smoking and tobacco/nicotine status: never used tobacco/nicotine Second hand smoke exposure: No Alcohol intake: never Substance/Drug Use: never Vitals/I&O/Wt Last Vital Signs Temp 98.1 F 07/23/24 08:57 Pulse 51 L 07/23/24 15:37 Resp 18 07/23/24 08:57 BP 169/97 07/23/24 15:37 Pulse Ox 94 07/23/24 15:37 O2 Del Method Room Air 07/23/24 15:37 Weight last 48 hrs Weight 79.379 kg Physical Exam 2 Const: COMMON NORMALS: no acute distress EXAM LIMITATIONS: altered mental status ORIENTATION/CONSCIOUSNESS: Yes awake, Yes oriented to person and Yes oriented to place; not oriented to time HENMT: COMMON NORMALS: normocephalic HEAD & SCALP: normocephalic Eye: COMMON NORMALS: Equal, round and reactive pupils present Neck/C-Spine: COMMON NORMALS: no JVD Lymph: LYMPHATIC: no lymphadenopathy noted Resp: COMMON NORMALS: normal respiratory effort, No retractions, No use of accessory muscles and clear to auscultation bilaterally AUSCULTATION: clear to auscultation bilaterally Cardio: COMMON NORMALS: regular rate, regular rhythm, S1 normal heart sound present and S2 normal heart sound present RATE: regular rate RHYTHM: r egular rhythm HEART SOUNDS: S1 normal heart sound present and S2 normal heart sound present GI: COMMON NORMALS: Normal to inspection, nondistended, normoactive bowel sounds present, Soft to palpation and non-tender Extremity: COMMON NORMALS: no pedal edema Neuro: COMMON NORMALS: CN's II-XII intact bilaterally, moves all extremities and no focal motor deficits Data 07/23/24 10:50 07/23/24 10:50 A&P Assessment and plan (1) Altered mental status: Plan Altered mental status -Etiology unclear ? Denies any focal neurologic deficits, on examination no facial droop no slurring of her words, no focal weakness -No seizure-like episodes reported -No significant electrolyte abnormalities -Urine toxicology screen negative -Head CT within normal limits ? UA within normal limits ? Will order ammonia levels ? Will order MRI of the brain ? Possible seizure? Will give her dose of Keppra ? Neurochecks ? Aspiration precautions ? NIH stroke scale ? Full code ? Lovenox for DVT prophylaxis Attestations 2 Medical Necessity Statement*: Patient requires hospitalization, inpatient, greater than 2 midnights, for altered mental status Diagnoses Altered mental status R41.82
[2024-07-23 17:46] LABS: Erythrocyte Sedimentation Rate 12 mm/hr (0-15)
[2024-07-23 17:54] LABS: Lactic Sepsis W/Reflex 1.5 mmol/L (0.5-2.2)
[2024-07-23 17:54] LABS: Ferritin 333 ng/mL (15-150); Iron 87 ug/dL (37-145)
[2024-07-23 17:55] LABS: Acetaminophen < 5.0 ug/mL (10-30); Salicylate < 0.3 mg/dL (3-10)
[2024-07-23 18:01] LABS: Procalcitonin 0.05 ng/mL (0-0.5)
[2024-07-23] MEDS: pantoprazole 40 mg SDV IVP (19:30)
[2024-07-23] MEDS: enoxaparin 40 mg/0.4 mL Syringe SUBCUT (19:30)
[2024-07-23] MEDS: levETIRAcetam 1,000 MG/100 ML PREMIX 400 MG IV (19:31)
[2024-07-23] MEDS: sodium chloride 0.9% 1,000 ML 75 ML IV (19:31)
[2024-07-23 19:46] LABS: Ammonia 39 umol/L (11-51)
--- NOTE | 2024-07-23 19:53 | PC.NURSE ---
This nurse tried to give patient her PO Aspirin. This nurse told the patient what the med was and the dose, pt responded with, I can't take anything. When asked to explain why she cannot take anything the patient refused and stated, I can't explain it.
[2024-07-24] VITALS (7 sets, daily range): BP systolic 116–157; BP diastolic 64–79; PULSE 55–59; RESP 16–24; TEMP 36.6–36.9; O2SAT 95–97
[2024-07-24 03:26] LABS: Basophils # 0.1 10^3/uL (0.0-0.1); Basophils % 0.7 %; Eosinophils # 0.1 10^3/uL (0.0-0.8); Eosinophils % 1.3 %; Hematocrit 35.1 % (36-47); Lymphocytes # 1.9 10^3/uL (0.8-4.8); Lymphocytes % 24.8 %; Mean Corpuscular HGB Conc 34.5 g/dL (30-55); Mean Corpuscular Hemoglobin 32.4 pg (27-33); Mean Corpuscular Volume 93.9 fl (85-98); Monocytes % 12.5 %; Neutrophils # 4.64 10^3/uL (1.8-7.7); Neutrophils % 60.3 %; Nucleated Red Blood Cells % 0 %; Platelet Count 148 10^3/cmm (157-399); Red Blood Count 3.74 10^6/uL (3.85-5.65); Red Cell Distribution Width 11.7 % (12.1-15.1); White Blood Count 7.69 10^3/uL (3.29-11.43)
[2024-07-24 03:35] LABS: Estmated Average Glucose 111; Hemoglobin A1C 5.5 % (4.0-6.0)
[2024-07-24 03:46] LABS: Alanine Aminotransferase 27 U/L (0-33); Albumin Level 3.4 g/dL (3.5-5.2); Alkaline Phosphatase 46 U/L (35-105); Anion Gap 15.3 (5-19); Aspartate Amino Transferase 39 U/L (0-32); Blood Urea Nitrogen 17 mg/dL (8-23); Calcium 8.2 mg/dL (8.5-10.5); Carbon Dioxide 21 mmol/L (22-29); Chloride 110 mmol/L (98-107); Creatinine Clr Calc Pharmacy 59.2566; Globulin 2.3 g/dL (1.3-4.6); Glucose 63 mg/dL (65-115); Magnesium 1.5 mg/dL (1.7-2.3); Osmolality Calculated 296 mOsm/kg (285-295); Phosphorus 2.4 mg/dL (2.5-4.5); Potassium 3.3 mmol/L (3.5-5.1); Sodium 143 mmol/L (136-145); Total Bilirubin 1.3 mg/dL (0.15-1.2); Total Protein 5.7 g/dL (6.6-8.7)
[2024-07-24 03:59] LABS: Chol HDL Ratio 2.24 mg/dL (0.0-4.40); Cholesterol 85 mg/dL (0-200); HDL Cholesterol 38 mg/dL (60-100); LDL Cholesterol Calculated 32 mg/dL (50-129); LDL HDL Ratio 0.84 RATIO (0.00-3.22); NT Pro B Type Natriuretic Pept 464 pg/mL (0-125); Triglycerides 75 mg/dL (0-150)
--- NOTE | 2024-07-24 05:24 | PC.NURSE ---
Urinary retention: Pt has not had any urine output tonight. This nurse bladder scanned pt. Bladder scan showed 613ml in bladder. Pt stated she was not in pain and did not have the urge to urinate. Dr. Goldsmith notified and ordered a wells to be placed for urinary retention.
[2024-07-24] MEDS: aspirin 81 mg EC Tablet PO (08:03)
[2024-07-24] MEDS: atorvastatin 40 mg Tablet PO (08:03)
[2024-07-24] MEDS: sodium chloride 0.9% 1,000 ML 75 ML IV ×2 (08:07→20:55)
[2024-07-24] MEDS: potassium chloride ER 20 mEq Tablet PO (09:45)
[2024-07-24] MEDS: magnesium lactate 84 mg Tablet PO ×2 (09:45→17:07)
--- NOTE | 2024-07-24 10:42 | USCV_ITS ---
Pili Donohue Age: 73 Gender: F : 1950 Exam Date: 07/24/2024 14:12 Ordering Phys: Musa Cardenas MD Technologist: Exam Location: [facility] [place] Indication: tia vs cva Risk Factors: Previous Vascular Surgery: Right Brachial BP: / Left Brachial BP: / Right Left Velocity (cm/s) Spectral Plaque Velocity (cm/s) Spectral Plaque Syst/Diast Broadening Syst/Diast Broadening 100.30/15.00 Prox CCA 56.90 / 10.00 78.70/ 15.00 Mid CCA 59.00 / 11.00 71.40/ 13.00 Distal CCA 68.00 / 12.00 48.00/ 11.00 Prox ICA 64.00 / 14.00 70.30/ 11.00 Mid ICA 72.80 / 17.00 66.30/ 14.00 Distal ICA 99.70 / 22.00 65.80 ECA 68.00 1.00 ICA/CCA 1.50 Antegrade Vertebral Antegrade 38.20/ 8.00 cm/s 41.80/ 10.00 cm/s Tri Subclavian Tri 70.50 65.30 FINDINGS Comparison: none available. No significant elevation of systolic or diastolic velocities. Waveforms are normal. Mild carotid plaque. Antegrade vertebral arteries. CONCLUSIONS Bilateral ICA stenosis less than 50%. Mild carotid atherosclerosis. Dr. Kaity Umanzor DO (Electronically Signed) Final Date: 24 July 2024 16:01 S
--- NOTE | 2024-07-24 10:42 | USCV_ITS ---
Pili Donohue Age: 73 Gender: F : 1950 Exam Date: 07/24/2024 13:57 Ordering Phys: Musa Cardenas MD Technologist: [place] [facility] [place]: tia vs cva BP: 132 / 76 HR: 72 Rhythm: Sinus Technical Quality: Adequate MEASUREMENTS (Male / Female) Normal Values 2D ECHO LV Ejection Fraction MOD 4C 65.4 % LV Ejection Fraction MOD 2C 72.8 % LV Ejection Fraction 2C AL 72.9 % RA Systolic Volume 4C AL 39.6 ml RA Systolic Volume 4C MOD 37.3 ml IVC Diameter 2.1 cm M-MODE LA Ao Ratio MM 1.8 AV Cusp Separation MM 1.7 cm DOPPLER AV Peak Velocity 124.0 cm/s LVOT Peak Velocity 102.0 cm/s MV Area PHT 3.1 cm squared Mitral E to A Ratio 3.5 TV Peak Velocity 270.5 cm/s TR Peak Velocity 281.0 cm/s TR Peak Gradient 31.6 mmHg TV Peak E Velocity 113.0 cm/s Right Atrial Pressure 3.0 mmHg Pulmonary Artery Systolic Pressu 34.6 mmHg PV Peak Velocity 96.0 cm/s FINDINGS Left Ventricle Left ventricle is normal size. LV systolic function is normal with EF of 60 to 65%. No regional wall motion abnormalities are seen. Right Ventricle Normal in size and function. Right Atrium Normal in size. Left Atrium Normal in size Mitral Valve Mitral valve is thickened.Trace mitral regurgitation. Aortic Valve Aortic valve is thickened. No significant stenosis or regurgitation. Tricuspid Valve Mild tricuspid regurgitation. RVSP is 30 to 35 mmHg. Pulmonic Valve Not well visualized Pericardium Normal Aorta Normal in size IVC Not well visualized CONCLUSIONS LV systolic function is normal with EF of 60-65% Trace mitral regurgitation Mild tricuspid regurgitation Lio Umana MD (Electronically Signed) Final Date: 24 July 2024 18:18 S
[2024-07-24] MEDS: levETIRAcetam 1,000 mg/10 mL UDC 500 MG PO ×2 (11:11→21:52)
[2024-07-24] MEDS: erythromycin Op Oint 1 gm 1 APPLIC EYE-BOTH ×3 (11:13→21:52)
--- NOTE | 2024-07-24 15:15 | P.PN_ITS ---
Subjective 2 Subjective: Patient was seen this morning, he sitting in a chair, she is alert to person, to place, she knows the month, she knows the year, no facial droop no slurring of words, no focal weakness, she denies any headache, no blurry vision does report floaters in her visual glass that come and go, but no other significant vertigo visual deficits. She tells me that she does not remember the events of yesterday, she is much more alert and awake this morning, can answer most questions appropriately, sometimes she is a bit foggy on some of her questions, but in the most part she can get questions right. She does report fatigue, malaise. Denies any back pain no falls, no paresthesias, no focal weakness. Tells me that she lives at home with her special needs son, who helps with her activities of daily living, she is pretty independent besides this, denies any eye pain, denies any flashing lights in her visual field, [id number] is normal bilaterally, pupils equal round react to light, extraocular movements intact, no eye pain, no eye tearing, Vitals/I&O/Wt Last Vital Signs Temp 98.2 F 07/24/24 12:00 Pulse 59 L 07/24/24 12:00 Resp 16 07/24/24 12:00 BP 116/71 07/24/24 12:00 Pulse Ox 95 07/24/24 12:00 O2 Del Method Room Air 07/24/24 04:00 07/24/24 07/24/24 07/24/24 06:59 14:59 22:59 Intake Total 1425 / 1425 Output Total 600 / 600 Balance -600 / 500 1425 / 1425 Weight last 48 hrs Weight 79.379 kg Weight 79.379 kg Weight 79.379 kg Physical Exam 2 Const: COMMON NORMALS: no acute distress and patient oriented x3 Eye: COMMON NORMALS: Equal, round and reactive pupils present and EOMs intact bilaterally PUPIL: Yes Equal, round and reactive pupils present OTHER: Left eye slight erythema conjunctival injection Resp: COMMON NORMALS: normal respiratory effort, No retractions, No use of accessory muscles and clear to auscultation bilaterally AUSCULTATION: clear to auscultation bilaterally Cardio: COMMON NORMALS: regular rate, regular rhythm, S1 normal heart sound present and S2 normal heart sound present RATE: regular rate RHYTHM: r egular rhythm HEART SOUNDS: S1 normal heart sound present and S2 normal heart sound present GI: COMMON NORMALS: Normal to inspection, nondistended, normoactive bowel sounds present and non-tender Extremity: COMMON NORMALS: no pedal edema Neuro: COMMON NORMALS: patient oriented x3, CN's II-XII intact bilaterally, moves all extremities, no focal motor deficits and no sensory deficits noted Psych: COMMON NORMALS: mental status grossly normal Urinary Catheter Management: Boo: Cath Placed During This Visit: yes Reason for Continuing Indwelling Catheter: Acute Urinary Retention or Obstruction Urinary Catheter Date of Insertion: 07/24/24 Urinary Catheter Time of Insertion: 05:26 Data 07/24/24 02:44 07/24/24 02:44 Micro: Microbiology 07/23/24 19:18 Blood Culture - Preliminary Blood SPECIMEN COLLECTED 07/23/24 19:23 Blood Culture - Preliminary Blood SPECIMEN COLLECTED A&P Assessment and plan (1) Altered mental status: (2) Seizures: Plan Altered mental status -Etiology possibly subclinical seizures as her mentation significantly improved with Keppra loading dose -Could also be transient global amnesia ? Denies any focal neurologic deficits, on examination no facial droop no slurring of her words, no focal weakness -No seizure-like episodes reported -No significant electrolyte abnormalities -Urine toxicology screen negative -Head CT within normal limits ? MRI brain within normal limits ? UA within normal limits ? Ammonia levels within normal limits ? Possible subclinical seizures, continue Keppra 500 twice daily -Possible TGA, continue aspirin, statin, neurochecks ? Cardiac echo ordered ? Carotid artery ultrasound ordered ? Does complain of floaters in her visual glass will continue to monitor ?Possible conjunctivitis of her left eye, start erythromycin ? Neurochecks ? Aspiration precautions ? NIH stroke scale ? Full code ? Lovenox for DVT prophylaxis Attestations 2 Medical Necessity Statement*: Patient requires hospitalization for altered mental status, possible subclinical seizures, possible TGA Diagnoses Altered mental status R41.82 Seizures R56.9
[2024-07-24] MEDS: enoxaparin 40 mg/0.4 mL Syringe SUBCUT (18:08)
[2024-07-24] MEDS: pantoprazole 40 mg SDV IVP (18:09)
[2024-07-24 22:14] LABS: Bacillus cereus group Not Detected (NOT DETECT); Bacillus subtillis group Not Detected (NOT DETECT); Corynebacterium Not Detected (NOT DETECT); Cutibacterium acnes (P.acnes) Not Detected (NOT DETECT); Enterococcus Not Detected (NOT DETECT); Enterococcus faecalis Not Detected (NOT DETECT); Enterococcus faecium Not Detected (NOT DETECT); Lactobacillus species Not Detected (NOT DETECT); Listeria Not Detected (NOT DETECT); Listeria monocytogenes Not Detected (NOT DETECT); Micrococcus Not Detected (NOT DETECT); Pan Candida Not Detected (NOT DETECT); Pan Gram-Negative Not Detected (NOT DETECT); Staphylococcus epidermidis Detected (NOT DETECT); Staphylococcus lugdunensis Not Detected (NOT DETECT); Staphylococcus species Detected (NOT DETECT); Streptococcus agalactiae Not Detected (NOT DETECT); Streptococcus anginosus group Not Detected (NOT DETECT); Streptococcus pneumoniae Not Detected (NOT DETECT); Streptococcus pyogenes Not Detected (NOT DETECT); Streptococcus species Not Detected (NOT DETECT); mecA Detected (NOT DETECT); mecC Not Detected (NOT DETECT)
[2024-07-24] MEDS: vancomycin 1,000 MG in sodium chloride 0.9% 250 ML 250 MG IV (22:54)
[2024-07-24 23:19] LABS: Glucose Point of Care 134 mg/dL (70-110)
[2024-07-25] VITALS (11 sets, daily range): BP systolic 111–171; BP diastolic 54–71; PULSE 43–73; RESP 17–20; TEMP 36.7–37.3; O2SAT 94–99
[2024-07-25] MEDS: erythromycin Op Oint 1 gm 1 APPLIC EYE-BOTH ×4 (04:39→22:15)
[2024-07-25 05:09] LABS: Basophils % 0.5 %; Eosinophils # 0.1 10^3/uL (0.0-0.8); Eosinophils % 1.4 %; Hematocrit 37.7 % (36-47); Lymphocytes # 2.5 10^3/uL (0.8-4.8); Lymphocytes % 28.6 %; Mean Corpuscular HGB Conc 33.7 g/dL (30-55); Mean Platelet Volume 10.5 fL (7.4-10.4); Monocytes # 1.1 10^3/uL (0.2-0.9); Neutrophils # 4.82 10^3/uL (1.8-7.7); Nucleated Red Blood Cells % 0 %; Platelet Count 153 10^3/cmm (157-399); Red Blood Count 3.97 10^6/uL (3.85-5.65); Red Cell Distribution Width 11.7 % (12.1-15.1)
[2024-07-25 05:35] LABS: Alanine Aminotransferase 27 U/L (0-33); Albumin Level 3.2 g/dL (3.5-5.2); Alkaline Phosphatase 57 U/L (35-105); Anion Gap 13.8 (5-19); Aspartate Amino Transferase 41 U/L (0-32); Blood Urea Nitrogen 13 mg/dL (8-23); Calcium 8.1 mg/dL (8.5-10.5); Carbon Dioxide 21 mmol/L (22-29); Chloride 113 mmol/L (98-107); Creatinine Clr Calc Pharmacy 60.7675; Globulin 2.7 g/dL (1.3-4.6); Glucose 122 mg/dL (65-115); Magnesium 1.7 mg/dL (1.7-2.3); Osmolality Calculated 299 mOsm/kg (285-295); Potassium 3.8 mmol/L (3.5-5.1); Sodium 144 mmol/L (136-145); Total Protein 5.9 g/dL (6.6-8.7)
--- NOTE | 2024-07-25 06:58 | PHA.VACGOAL ---
Vancomycin Goal - Goal Vancomycin Goal:: 15-20 mg/L Vancomycin Indication:: Other (BACTEREMIA) - Therapy Day of therpy:: Day [2]of [] . Actual body weight (kg): 83.143 kg - Data Labs: WBC 8.60 10^3/uL (3.29-11.43) 07/25/24 04:42 RBC 3.97 10^6/uL (3.85-5.65) 07/25/24 04:42 Hgb 12.70 g/dL (11.27-16.99) 07/25/24 04:42 Hct 37.7 % (36-47) 07/25/24 04:42 MCV 95.0 fl (85-98) 07/25/24 04:42 MCH 32.0 pg (27-33) 07/25/24 04:42 MCHC 33.7 g/dL (30-55) 07/25/24 04:42 RDW 11.7 % (12.1-15.1) L 07/25/24 04:42 Sodium 144 mmol/L (136-145) 07/25/24 04:42 Potassium 3.8 mmol/L (3.5-5.1) 07/25/24 04:42 Chloride 113 mmol/L (98-107) H 07/25/24 04:42 Carbon Dioxide 21 mmol/L (22-29) L 07/25/24 04:42 Anion Gap 13.8 (5-19) 07/25/24 04:42 BUN 13 mg/dL (8-23) 07/25/24 04:42 Creatinine 0.8 mg/dL (0.5-0.9) 07/25/24 04:42 GFR Calculation Not Reportable 07/25/24 04:42 Treatment plan:: new consult Regimen:: Telepharmacy dosing below: Comments: 1000 mg IV Q12hr (infused over 1 hr) AUC/JOANNA 523 mcg*hr/mL (goal 400 to 600 mcg*hr/mL) Peak 28.1 mcg/mL Trough 16.4 mcg/mL Serum Creatinine: 0.7 CrCL: 59.2566 Indication: BLOOD CULTURE GREW GRAM + COCCI Dose (mg): 1000MG Frequency: Q 12 HOURS Height (cm): 152.4 CM Weight (kg): 79.279 Age (Years): 73 First Dose Time and Date: 07/24 2300 Follow up:: SCr increased to 0.8 mg /dL. Blood culture growing gram positive cocci in clusters from 07/23. No load dose given. Dosing change to 1250 mg q18h. Pharmacy to monitor daily.
[2024-07-25] MEDS: magnesium lactate 84 mg Tablet PO ×2 (08:14→18:20)
[2024-07-25] MEDS: vancomycin 1,250 MG/250 ML PIGGYBACK 166.67 MG IV (08:14)
[2024-07-25] MEDS: atorvastatin 40 mg Tablet PO (08:15)
[2024-07-25] MEDS: levETIRAcetam 1,000 mg/10 mL UDC 500 MG PO ×2 (08:15→22:15)
[2024-07-25] MEDS: aspirin 81 mg EC Tablet PO (08:15)
[2024-07-25] MEDS: sodium chloride 0.9% 1,000 ML 75 ML IV (08:17)
--- NOTE | 2024-07-25 12:09 | P.PN_ITS ---
Subjective 2 Subjective: Patient was seen this morning, she is alert oriented x 2, follows all commands, denies any fevers, chills, no cough no headache, blurry vision, no neck pain, she follows all commands, we discussed her gram-positive bacteremia, we will continue IV vancomycin, she is agreeable her Boo catheter is bothering her Vitals/I&O/Wt Last Vital Signs Temp 98.0 F 07/25/24 11:37 Pulse 51 L 07/25/24 11:37 Resp 20 H 07/25/24 11:37 BP 138/69 07/25/24 11:37 Pulse Ox 99 07/25/24 11:37 O2 Del Method Room Air 07/25/24 11:37 07/24/24 07/25/24 07/25/24 22:59 06:59 14:59 Intake Total 1200 / 2625 250 / 2875 1342.5 / 1342.5 Output Total 350 / 350 250 / 600 Balance 850 / 2275 0 / 2275 1342.5 / 1342.5 Weight last 48 hrs Weight 83.143 kg Weight 79.379 kg Weight 79.379 kg Physical Exam 2 Const: COMMON NORMALS: no acute distress ORIENTATION/CONSCIOUSNESS: Yes awake, Yes oriented to person and Yes oriented to place; not oriented to time Resp: COMMON NORMALS: normal respiratory effort, No retractions, No use of accessory muscles and clear to auscultation bilaterally AUSCULTATION: clear to auscultation bilaterally Cardio: COMMON NORMALS: regular rate, regular rhythm, S1 normal heart sound present and S2 normal heart sound present RATE: regular rate RHYTHM: r egular rhythm HEART SOUNDS: S1 normal heart sound present and S2 normal heart sound present GI: COMMON NORMALS: Normal to inspection, nondistended, normoactive bowel sounds present and non-tender Extremity: COMMON NORMALS: no pedal edema Neuro: SENSORIUM/ORIENTATION: Yes oriented to person, Yes oriented to place and No oriented to time Psych: COMMON NORMALS: mental status grossly normal Urinary Catheter Management: Boo: Cath Placed During This Visit: yes Reason for Continuing Indwelling Catheter: Acute Urinary Retention or Obstruction Urinary Catheter Date of Insertion: 07/24/24 Urinary Catheter Time of Insertion: 05:26 Data 07/25/24 04:42 07/25/24 04:42 Micro: Microbiology 10/01/24 04:40 Blood Culture - Preliminary Blood SPECIMEN COLLECTED 07/25/24 04:42 Blood Culture - Preliminary Blood SPECIMEN COLLECTED 07/23/24 19:18 Blood Culture - Preliminary Blood 07/23/24 19:23 Blood Culture - Preliminary Blood NEGATIVE TO DATE A&P Assessment and plan (1) Altered mental status: (2) Seizures: Plan Altered mental status -Etiology possibly subclinical seizures as her mentation significantly improved with Keppra loading dose -Could also be transient global amnesia ? Denies any focal neurologic deficits, on examination no facial droop no slurring of her words, no focal weakness -No seizure-like episodes reported -No significant electrolyte abnormalities -Urine toxicology screen negative -Head CT within normal limits ? MRI brain within normal limits ? UA within normal limits ? Ammonia levels within normal limits ? Possible subclinical seizures, continue Keppra 500 twice daily -Possible TGA, continue aspirin, statin, neurochecks ? Cardiac echo CONCLUSIONS LV systolic function is normal with EF of 60-65% Trace mitral regurgitation Mild tricuspid regurgitation ? Carotid artery ultrasound CONCLUSIONS Bilateral ICA stenosis less than 50%. Mild carotid atherosclerosis. ? Does complain of floaters in her visual glass will continue to monitor ?Possible conjunctivitis of her left eye, start erythromycin ? Neurochecks ? Aspiration precautions ? NIH stroke scale ? Full code ? Lovenox for DVT prophylaxis Gram-positive bacteremia, -Continue vancomycin -Follow repeat blood cultures Attestations 2 Medical Necessity Statement*: Patient requires hospitalization for altered mental status, gram-positive bacteremia, requiring IV antibiotics Diagnoses Altered mental status R41.82 Seizures R56.9
[2024-07-25] MEDS: enoxaparin 40 mg/0.4 mL Syringe SUBCUT (18:21)
[2024-07-25] MEDS: pantoprazole DR 40 mg Tablet PO (18:33)
--- NOTE | 2024-07-25 19:28 | PC.NURSE ---
Patient accidentally pulled put IV catheter. Dr. Cardenas notified and stated nursing staff does not have to insert another one because the patient is discharging tomorrow.
[2024-07-26] VITALS: BP 140/78; PULSE 60; RESP 16; TEMP 36.9; O2SAT 92
[2024-07-26] MEDS: linezolid 600 mg Tablet PO (03:08)
[2024-07-26 04:00] VITALS: BP 107/66; PULSE 54; RESP 18; TEMP 36.8; O2SAT 94
[2024-07-26] MEDS: erythromycin Op Oint 1 gm 1 APPLIC EYE-BOTH ×2 (05:09→10:01)
[2024-07-26 05:50] LABS: Basophils % 0.6 %; Eosinophils # 0.2 10^3/uL (0.0-0.8); Eosinophils % 2.5 %; Hematocrit 33.8 % (36-47); Lymphocytes # 2.4 10^3/uL (0.8-4.8); Lymphocytes % 33.2 %; Mean Corpuscular HGB Conc 35.2 g/dL (30-55); Mean Corpuscular Hemoglobin 32.8 pg (27-33); Mean Corpuscular Volume 93.1 fl (85-98); Mean Platelet Volume 11.1 fL (7.4-10.4); Monocytes # 1.1 10^3/uL (0.2-0.9); Monocytes % 14.9 %; Neutrophils # 3.53 10^3/uL (1.8-7.7); Neutrophils % 48.5 %; Nucleated Red Blood Cells % 0 %; Platelet Count 128 10^3/cmm (157-399); Red Blood Count 3.63 10^6/uL (3.85-5.65); Red Cell Distribution Width 11.9 % (12.1-15.1); White Blood Count 7.26 10^3/uL (3.29-11.43)
[2024-07-26 06:06] VITALS: PULSE 44
[2024-07-26 06:09] LABS: Alanine Aminotransferase 29 U/L (0-33); Albumin Level 3.2 g/dL (3.5-5.2); Alkaline Phosphatase 60 U/L (35-105); Anion Gap 12.3 (5-19); Aspartate Amino Transferase 46 U/L (0-32); Blood Urea Nitrogen 9 mg/dL (8-23); Calcium 8.2 mg/dL (8.5-10.5); Carbon Dioxide 21 mmol/L (22-29); Chloride 113 mmol/L (98-107); Creatinine Clr Calc Pharmacy 60.4399; Globulin 2.5 g/dL (1.3-4.6); Glucose 110 mg/dL (65-115); Magnesium 1.6 mg/dL (1.7-2.3); Osmolality Calculated 295 mOsm/kg (285-295); Phosphorus 2.2 mg/dL (2.5-4.5); Potassium 3.3 mmol/L (3.5-5.1); Sodium 143 mmol/L (136-145); Total Bilirubin 0.9 mg/dL (0.15-1.2); Total Protein 5.7 g/dL (6.6-8.7)
[2024-07-26 07:34] VITALS: BP 128/78; PULSE 58; RESP 16; TEMP 36.6; O2SAT 97
[2024-07-26] MEDS: atorvastatin 40 mg Tablet PO (08:10)
[2024-07-26] MEDS: aspirin 81 mg EC Tablet PO (08:10)
[2024-07-26] MEDS: magnesium lactate 84 mg Tablet PO (08:10)
[2024-07-26] MEDS: pantoprazole DR 40 mg Tablet PO (08:12)
--- NOTE | 2024-07-26 09:46 | PC.SOCIAL ---
IMM updated IMM dated and initialed, copy given to patient and copy placed in chart
[2024-07-26] MEDS: phosphorus 250 mg Tablet PO (10:00)
[2024-07-26] MEDS: potassium chloride ER 20 mEq Tablet PO (10:01)
[2024-07-26] MEDS: levETIRAcetam 1,000 mg/10 mL UDC 500 MG PO (10:44)
[2024-07-26 11:01] LABS: Bacillus cereus group Not Detected (NOT DETECT); Bacillus subtillis group Not Detected (NOT DETECT); Corynebacterium Detected (NOT DETECT); Cutibacterium acnes (P.acnes) Not Detected (NOT DETECT); Enterococcus Not Detected (NOT DETECT); Enterococcus faecalis Not Detected (NOT DETECT); Enterococcus faecium Not Detected (NOT DETECT); Lactobacillus species Not Detected (NOT DETECT); Listeria Not Detected (NOT DETECT); Listeria monocytogenes Not Detected (NOT DETECT); Micrococcus Not Detected (NOT DETECT); Pan Candida Not Detected (NOT DETECT); Pan Gram-Negative Not Detected (NOT DETECT); Staphylococcus epidermidis Not Detected (NOT DETECT); Staphylococcus lugdunensis Not Detected (NOT DETECT); Staphylococcus species Not Detected (NOT DETECT); Streptococcus agalactiae Not Detected (NOT DETECT); Streptococcus anginosus group Not Detected (NOT DETECT); Streptococcus pneumoniae Not Detected (NOT DETECT); Streptococcus pyogenes Not Detected (NOT DETECT); Streptococcus species Not Detected (NOT DETECT)
[2024-07-26 11:34] VITALS: BP 155/82; PULSE 55; RESP 16; TEMP 36.4; O2SAT 97
--- NOTE | 2024-07-26 11:45 | PM.DCS ---
Discharge Providers Date of Admission: 07/23/24 17:27 Date of Discharge: July 26, 2024 Attending Provider at Admission: Musa Cardenas MD Attending Provider at Discharge: Musa Cardenas MD Primary Care Provider: Catherine Hernández Diagnoses at Discharge Discharge Diagnosis (1) Altered mental status: Status: Acute (2) Seizures: Status: Acute Reason for Visit Reason for Visit: [facility] Hospital Course Hospital Course Pili Donohue is a 73 year old female with a past medical history of CVA, hypertension, who presents to [facility] to altered mental status. Patient is currently alert to person, not to place, not to time, she can follow commands she knows her name she knows her birthdate she knows her address she does not know why she is here in the hospital she does not know how she ended up here, she does tell me that her neighbor called the police, because she was confused, she does not remember the events of this morning, she does not remember what she had for dinner last night she tells me that she lives at home by herself at times she tells me that she takes care of herself but then at other times she tells me that there is nobody there for her and she does not know how she gets her food, she tells me that she drives, but is not able to tell me what car she has, she tells me that she is not feeling well, that is her only complaint, but no specific complaints no facial droop, no slurring of words, no focal weakness, no lightheadedness, no dizziness, no nausea, no vomiting, no chest pain, no palpitations, no abdominal pain, no back pain, no falls, no new rashes, no visual deficits no headache, no neck pain, no neck stiffness, no seizure-like episodes, no family members at bedside to help with history taking Patient was admitted to [facility] for altered mental status -Etiology possibly subclinical seizures as her mentation significantly improved with Keppra loading dose -Could also be transient global amnesia ? Denies any focal neurologic deficits, on examination no facial droop no slurring of her words, no focal weakness -No seizure-like episodes reported -No significant electrolyte abnormalities -Urine toxicology screen negative -Head CT within normal limits ? MRI brain within normal limits ? UA within normal limits ? Ammonia levels within normal limits ? Possible subclinical seizures, continue Keppra 500 twice daily, will discharge her with this dose and follow-up with follow-up with neurology as outpatient -Possible TGA, continue aspirin, statin, follow-up with neurology as outpatient ? Cardiac echo CONCLUSIONS LV systolic function is normal with EF of 60-65% Trace mitral regurgitation Mild tricuspid regurgitation ? Carotid artery ultrasound CONCLUSIONS Bilateral ICA stenosis less than 50%. Mild carotid atherosclerosis. ? On discharge patient is alert oriented x 3, following all commands, no focal neurologic deficits, patient was advised if she were to have any strokelike symptoms to include emergency room Patient was found to have 2 out of 6 blood cultures positive, her initial set of blood cultures, 1 set of blood cultures was positive for Staph epidermidis and Corynebacterium species. She had initially received vancomycin dosing for this, as workup was progressing, however refused further IVs, received 1 dose of p.o. by Zyvox. 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 We discussed with her remaining in the hospital to ensure that her second set of blood cultures are negative 48 hours, however she is adamant about going home. Discussed risks and benefits, discussed morbidity and mortality associated, shared decision making, she voiced understanding, all questions answered, adamant about discharging home. Likely her initial set of blood cultures were contamination will continue to monitor, monitor her repeat blood cultures, if positive we will call her back to the hospital. Patient was advised if she were to have any fevers, chills, recurrent symptomatology, feeling sick please immediately come back to emergency room as this could be indicated life-threatening infection. She voiced understanding, all questions answered. Physical Exam Const: COMMON NORMALS: no acute distress and patient oriented x3 Resp: COMMON NORMALS: normal respiratory effort, No retractions, No use of accessory muscles and clear to auscultation bilaterally AUSCULTATION: clear to auscultation bilaterally Cardio: COMMON NORMALS: regular rate, regular rhythm, S1 normal heart sound present and S2 normal heart sound present RATE: regular rate RHYTHM: regular rhythm HEART SOUNDS: S1 normal heart sound present and S2 normal heart sound present GI: COMMON NORMALS: Normal to inspection, nondistended, normoactive bowel sounds present and non-tender Extremity: COMMON NORMALS: no pedal edema Neuro: COMMON NORMALS: patient oriented x3 Psych: COMMON NORMALS: mental status grossly normal Urinary Catheter Management: Boo: Cath Placed During This Visit: yes Reason for Continuing Indwelling Catheter: Acute Urinary Retention or Obstruction Urinary Catheter Date of Insertion: 07/24/24 Urinary Catheter Time of Insertion: 05:26 Discharge Data Studies Completed and Pending Completed Studies During Hospitalization Category Date Time Status CT head wo con* [id number] Stat Cat Scan 07/23/24 09:35 Completed XR chest 1V portable [id number] Stat Exams 07/23/24 09:35 Completed MR head wo con* [id number] Stat MRI 07/23/24 17:31 Completed CV carotid duplex BI* [id number] Routine Ultrasound 07/24/24 10:42 Completed CV. echo complete* [id number] Routine Ultrasound 07/24/24 10:42 Completed Pending at discharge Category Date Time Status Blood Culture AM LABS Lab 07/25/24 04:40 Results Blood Culture Stat Lab 07/23/24 19:18 Results Radiology Impressions Chest X-Ray 07/23/24 09:35 IMPRESSION: 1. No acute cardiopulmonary abnormality. Head CT 07/23/24 09:35 IMPRESSION: No large territorial infarct or intracranial bleed. Head MRI 07/23/24 17:31 IMPRESSION: 1. No acute abnormality of the brain. 2. Sinus disease with findings suspicious for acute sinusitis in the left maxillary sinus. 3. Stable mild atrophy of the brain parenchyma. 4. Moderate white matter microangiopathic change. 5. Incidental/nonacute findings are listed in the report. Laboratory Results WBC 7.26 10^3/uL (3.29-11.43) 07/26/24 05:03 RBC 3.63 10^6/uL (3.85-5.65) L 07/26/24 05:03 Hgb 11.90 g/dL (11.27-16.99) 07/26/24 05:03 Hct 33.8 % (36-47) L 07/26/24 05:03 MCV 93.1 fl (85-98) 07/26/24 05:03 MCH 32.8 pg (27-33) 07/26/24 05:03 MCHC 35.2 g/dL (30-55) 07/26/24 05:03 RDW 11.9 % (12.1-15.1) L 07/26/24 05:03 Plt Count 128 10^3/cmm (157-399) L 07/26/24 05:03 MPV 11.1 fL (7.4-10.4) H 07/26/24 05:03 Neut % (Auto) 48.5 % 07/26/24 05:03 Lymph % (Auto) 33.2 % 07/26/24 05:03 [place] % (Auto) 14.9 % 07/26/24 05:03 Eos % (Auto) 2.5 % 07/26/24 05:03 Baso % (Auto) 0.6 % 07/26/24 05:03 Neut # (Auto) 3.53 10^3/uL (1.8-7.7) 07/26/24 05:03 Lymph # (Auto) 2.4 10^3/uL (0.8-4.8) 07/26/24 05:03 [place] # (Auto) 1.1 10^3/uL (0.2-0.9) H 07/26/24 05:03 Eos # (Auto) 0.2 10^3/uL (0.0-0.8) 07/26/24 05:03 Baso # (Auto) 0.0 10^3/uL (0.0-0.1) 07/26/24 05:03 Nucleated RBC % (auto) 0 % 07/26/24 05:03 Nucleated RBCs # 0.0 /100WBC 07/26/24 05:03 ESR 12 mm/hr (0-15) 07/23/24 10:50 Sodium 143 mmol/L (136-145) 07/26/24 05:03 Potassium 3.3 mmol/L (3.5-5.1) L 07/26/24 05:03 Chloride 113 mmol/L (98-107) H 07/26/24 05:03 Carbon Dioxide 21 mmol/L (22-29) L 07/26/24 05:03 Anion Gap 12.3 (5-19) 07/26/24 05:03 BUN 9 mg/dL (8-23) 07/26/24 05:03 Creatinine 0.6 mg/dL (0.5-0.9) 07/26/24 05:03 GFR Calculation Not Reportable 07/26/24 05:03 Glucose 110 mg/dL (65-115) 07/26/24 05:03 POC Glucose 134 mg/dL (70-110) H 07/24/24 23:16 Estimat Average Glucose 111 07/24/24 02:44 Hemoglobin A1c 5.5 % (4.0-6.0) 07/24/24 02:44 Calculated Osmolality 295 mOsm/kg (285-295) 07/26/24 05:03 Lactic Acid 1.5 mmol/L (0.5-2.2) 07/23/24 10:50 Calcium 8.2 mg/dL (8.5-10.5) L 07/26/24 05:03 Phosphorus 2.2 mg/dL (2.5-4.5) L 07/26/24 05:03 Magnesium 1.6 mg/dL (1.7-2.3) L 07/26/24 05:03 Iron 87 ug/dL (37-145) 07/23/24 12:49 Ferritin 333 ng/mL (15-150) H 07/23/24 12:49 Total Bilirubin 0.9 mg/dL (0.15-1.2) 07/26/24 05:03 AST 46 U/L (0-32) H 07/26/24 05:03 ALT 29 U/L (0-33) 07/26/24 05:03 Alkaline Phosphatase 60 U/L (35-105) 07/26/24 05:03 Ammonia 39 umol/L (11-51) 07/23/24 19:23 Troponin T Baseline 12 ng/L (0-10) H 07/23/24 10:50 Troponin T 120 Minute 10.72 ng/L (0-10) H 07/23/24 12:49 Delta Troponin T -1.28 ABS# (0-10) L 07/23/24 12:49 C-Reactive Protein 3.0 mg/L (0.0-4.9) 07/23/24 12:49 NT-Pro-B Natriuret Pep 464 pg/mL (0-125) H 07/24/24 02:44 Total Protein 5.7 g/dL (6.6-8.7) L 07/26/24 05:03 Albumin 3.2 g/dL (3.5-5.2) L 07/26/24 05:03 Globulin 2.5 g/dL (1.3-4.6) 07/26/24 05:03 Triglycerides 75 mg/dL (0-150) 07/24/24 02:44 Cholesterol 85 mg/dL (0-200) 07/24/24 02:44 LDL Cholesterol, Calc 32 mg/dL (50-129) L 07/24/24 02:44 HDL Cholesterol 38 mg/dL (60-100) L 07/24/24 02:44 LDL/HDL Ratio 0.84 RATIO (0.00-3.22) 07/24/24 02:44 Cholesterol/HDL Ratio 2.24 mg/dL (0.0-4.40) 07/24/24 02:44 Procalcitonin 0.05 ng/mL (0-0.5) 07/23/24 12:49 TSH 1.10 uIU/mL (0.27-4.20) 07/23/24 10:50 Urine Color Dark yellow (Yellow) A 07/23/24 13:01 Urine Appearance Clear (CLEAR) 07/23/24 13:01 Urine pH 6.0 (5-7) 07/23/24 13:01 Ur Specific [place] 1.025 (1.005-1.030) 07/23/24 13:01 Urine Protein Trace (Negative) A 07/23/24 13:01 Urine Glucose (UA) Negative (Normal) 07/23/24 13:01 Urine Ketones 1+ (Negative) H 07/23/24 13:01 Urine Blood Negative (Negative) 07/23/24 13:01 Urine Nitrate Negative (Negative) 07/23/24 13:01 Urine Bilirubin Negative (Negative) 07/23/24 13:01 Urine Urobilinogen 1.0 mg/dL (Negative) 07/23/24 13:01 Ur Leukocyte Esterase Negative (Negative) 07/23/24 13:01 Urine RBC 0-2 /hpf (0-2) 07/23/24 13:01 Urine WBC 5-10 /hpf (0-5) H 07/23/24 13:01 Ur Squamous Epith Cells 0-5 /hpf (0-5) 07/23/24 13:01 Amorphous Sediment 1+ /hpf 07/23/24 13:01 Urine Bacteria None seen /hpf (NONE) 07/23/24 13:01 Hyaline Casts 0.81 /lpf 07/23/24 13:01 Salicylates < 0.3 mg/dL (3-10) L 07/23/24 12:49 Urine Opiates Screen Negative ng/mL (Negative) 07/23/24 13:01 Acetaminophen < 5.0 ug/mL (10-30) L 07/23/24 12:49 Ur Barbiturates Screen Negative ng/mL (Negative) 07/23/24 13:01 Ur Phencyclidine Scrn Negative ng/mL (Negative) 07/23/24 13:01 Ur Amphetamines Screen Negative ng/mL (Negative) 07/23/24 13:01 U Benzodiazepines Scrn Negative ng/mL (Negative) 07/23/24 13:01 Urine Cocaine Screen Negative ng/mL (Negative) 07/23/24 13:01 U Marijuana (THC) Screen Negative ng/mL (Negative) 07/23/24 13:01 Ethyl Alcohol < 10 mg/dL (0-10) 07/23/24 10:50 C. difficile (PCR) Cancelled 07/26/24 08:55 Vitals Last Vital Signs Temp 97.8 F 07/26/24 07:34 Pulse 58 L 07/26/24 07:34 Resp 16 07/26/24 07:34 BP 128/78 07/26/24 07:34 Pulse Ox 97 07/26/24 07:34 O2 Del Method Room Air 07/26/24 07:34 Discharge Plan Discharge Patient Disposition: Home Condition: Stable Prescriptions: New magnesium L-lactate [Magtab] 84 mg Tablet Extended Release 84 mg PO DAILY 14 Days Qty: 14 0RF levetiracetam [Keppra] 500 mg tablet 500 mg PO BID 30 Days Qty: 60 0RF erythromycin 5 mg/gram (0.5 %) Ointment 1 applic eye-both Q6H 7 Days Qty: 3.5 0RF Continued atorvastatin 40 mg tablet 40 mg PO DAILY aspirin 81 mg tablet,delayed release (DR/EC) 81 mg PO DAILY (DME) hinged knee brace See Rx Instructions .ROUTE .MEDSUPPLY Qty: 1 0RF Rx Instructions: As directed cholecalciferol (vitamin D3) 1,000 unit/drop Drops 1,000 unit PO DAILY lisinopril-hydrochlorothiazide 20-12.5 mg tablet 1 tab PO DAILY Discharge Orders: Discharge Order (Routine); Ordered 07/26/24 Ordered By: Musa Cardenas Referrals: Halle Briseno MD [Physician] - 1 week Catherine Hernández PA [Primary Care Provider] - 08/02/24 1:20 pm Discharge Diet: Cardiac and Diabetic Discharge Activity: Resume usual activity Patient Instructions: Altered Mental Status (ED), Opioid Safety Activity Restrictions/Additional Instructions: - Your blood culture was positive, likely contamination, but will continue to monitor it, if you have any fevers, chills, if you feel sick please see me to come back to the hospital. If your blood cultures show significant evidence of infection we will call you back to the hospital -Please take seizure medication as prescribed -Follow-up with Dr. Briseno Discharge Attestations Time Spent in Discharge Care*: greater than 30 min Quality Metrics Clinical Quality Measures [ No reported AMI, CVA or VTE this stay] Coding Level of Care Code 07295 Total time (in minutes) for Discharge: 45 Diagnoses Altered mental status R41.82 Seizures R56.9
--- NOTE | 2024-07-26 12:18 | PC.NURSE ---
Discharge Note Patient discharged to home via private vehicle accompanied by daughter. Discharge instructions reviewed with patient and/or workforce services representative. Mobile pharmacy medications and/or prescriptions provided. Belongings/home medications returned. NO IV in place at time of discharge to remove. Patient instructed on taking the seizure medications even if felt like she did not have seizure disorder. Instructed patient to keep follow ups and not to drive until seizure disorder was disproved by neurologist. Patient voiced understanding.
[2024-07-26 12:20] VITALS: BP 155/82; PULSE 55; RESP 16; TEMP 36.4; O2SAT 97
== END 2024-07-26 13:27 | disposition home or self-care (01) | DRG 71 ==
LOC: ER 15:31 → MEDSURG 18:05
PROVIDERS: Admitting Provider Family Medicine; Emergency Provider Emergency Medicine; PCP Physician Assistant; Visit Provider Family Medicine
DX: G45.4 Transient global amnesia (principal); G40.89 Other seizures; I10 Essential (primary) hypertension; H10.9 Unspecified conjunctivitis
CPT/HCPCS: 36415; 36416; 51702; 70450; 70551; 71045; 80053; 80061; 80306; 80307; 81001; 82140; 82728; 82962; 83036; 83540; 83605; 83735; 83880; 84100; 84145; 84443; 84484; 85025; 85651; 86140; 87040; 87077; 87150; 87186; 87205; 93005; 93306; 93880; 94664; 96360; 96372; 99285; J1650; J1953; J2470; J3370; J7030; J7050

== ENCOUNTER 2024-07-28 13:29 | Observation (INO) | payer MEDICARE, MEDICAID, SELFPAY ==
[2024-07-28] VITALS (8 sets, daily range): BP systolic 146–179; BP diastolic 76–85; PULSE 54–63; RESP 16; TEMP 36.8; O2SAT 95–99; BMI 31.8
--- NOTE | 2024-07-28 13:59 | CT_ITS ---
WS: [id number] CT HEAD NONCONTRAST HISTORY: confusion TECHNIQUE: Contiguous axial imaging performed through the brain. Bone and soft tissue windows. Sagitt al and coronal reformats reviewed. All CT scans at [facility] use at least one of these dose optimization techniques: automated exposure control; mA and/or kV adjustment per patient size (includ es targeted exams where dose is matched to clinical indication); or iterative reconstruction. DLP: 983.58 mGy.cm COMPARISON: 07/23/2024 No acute intracranial hemorrhage, midline shift or mass effect. Moderate atrophy and small vessel disease. Bilateral small lacunar infarcts in the thalami and basal ganglia. Mild cerebellar atrophy. Ventricles: Ventricles are mildly prominent on the basis of atrophy. No inferior displacement of the cerebellar tonsils. Very dense calcification in the distal vertebral and the carotid arteries. Component of arterial sten osis is likely. Paranasal sinuses: LEFT maxillary sinus mucoperiosteal thickening. Mastoid air cells: Well pneumatized. Calvarium and scalp: Skull is intact with no soft tissue edema or swelling. CT/CT head wo con* [id number] IMPRESSION: 1. No acute intracranial hemorrhage or edema. 2. Moderate atrophy and small vessel ischemic disease with lacunar infarcts, s table.
[2024-07-28 14:09] LABS: Basophils % 0.5 %; Eosinophils # 0.1 10^3/uL (0.0-0.8); Eosinophils % 1.6 %; Hematocrit 39.3 % (36-47); Lymphocytes # 1.7 10^3/uL (0.8-4.8); Lymphocytes % 20.7 %; Mean Corpuscular HGB Conc 34.6 g/dL (30-55); Mean Corpuscular Hemoglobin 32.4 pg (27-33); Mean Corpuscular Volume 93.6 fl (85-98); Mean Platelet Volume 10.8 fL (7.4-10.4); Monocytes # 1.1 10^3/uL (0.2-0.9); Monocytes % 13.9 %; Neutrophils # 5.11 10^3/uL (1.8-7.7); Neutrophils % 63.1 %; Nucleated Red Blood Cells % 0 %; Platelet Count 159 10^3/cmm (157-399); Red Cell Distribution Width 12.1 % (12.1-15.1); White Blood Count 8.11 10^3/uL (3.29-11.43)
[2024-07-28 14:20] LABS: Alanine Aminotransferase 33 U/L (0-33); Albumin Level 3.8 g/dL (3.5-5.2); Alkaline Phosphatase 57 U/L (35-105); Anion Gap 15.7 (5-19); Aspartate Amino Transferase 42 U/L (0-32); Blood Urea Nitrogen 11 mg/dL (8-23); Calcium 9.1 mg/dL (8.5-10.5); Carbon Dioxide 25 mmol/L (22-29); Chloride 106 mmol/L (98-107); Creatinine Clr Calc Pharmacy 57.0719; Globulin 3.3 g/dL (1.3-4.6); Glucose 104 mg/dL (65-115); Osmolality Calculated 296 mOsm/kg (285-295); Potassium 3.7 mmol/L (3.5-5.1); Sodium 143 mmol/L (136-145); Total Protein 7.1 g/dL (6.6-8.7)
--- NOTE | 2024-07-28 14:23 | PC.PHAR ---
Patient stated she thought she took her morning meds and pointed to a box she brought from home that has her medications in it and I checked and her Wednesday morning meds are not in there . Also spoke to [facility] and her 3 discharge medications form her previous stay had been picked up
--- NOTE | 2024-07-28 16:03 | ED_ITS ---
HPI - Altered Mental Status 2 General: Chief Complaint: Altered Mental Status Stated Complaint: episodes of confusion Time Seen by Provider: 07/28/24 13:38 History of Present Illness: Patient is a 73-year-old female who presents to the ER with reported altered mental status. She was admitted to the hospital here just a few days ago with similar complaints and received extensive workup including CT head and MRI brain. The patient has some difficulty telling me why she was brought here and states that her daughter felt like she was confused. She does states she has felt confused from time to time but is alert and oriented x 3 here. She denies any pain or discomfort currently. She has a left conjunctivitis that she is receiving antibiotics for. Her recent admission stated they felt she may be having subclinical seizures causing some confusion. She denies any chest pain or shortness of breath. No head injury or trauma. No abdominal pain or back pain. MD complaint: confusion Related Data Home Medications Medication Instructions Recorded Confirmed aspirin 81 mg tablet,delayed 81 mg PO DAILY 12/14/19 07/28/24 release cholecalciferol (vitamin D3) 25 1,000 unit PO DAILY 01/12/20 07/28/24 mcg/drop (1,000 unit/drop) oral drops atorvastatin 40 mg tablet 40 mg PO DAILY 04/15/21 07/28/24 lisinopril 20 1 tab PO DAILY 07/24/24 07/28/24 mg-hydrochlorothiazide 12.5 mg tablet Previous Rx's Medication Instructions Recorded hinged knee brace #1 ea 12/16/20 erythromycin 5 mg/gram (0.5 %) eye 1 applic eye-both Q6H 7 days #3.5 07/26/24 ointment (3.5 gram tube) grams levetiracetam 500 mg tablet 500 mg PO BID 30 days #60 tabs 07/26/24 (Keppra) magnesium L-lactate 84 mg 84 mg PO DAILY 2 weeks #14 tabs 07/26/24 tablet,extended release (Magtab) Allergies Allergy/AdvReac Type Severity Reaction Status Date / Time metformin Allergy Unknown Verified 05/17/24 13:21 Penicillins Allergy Unknown Verified 05/17/24 13:21 sulfamethoxazole Allergy Unknown Verified 05/17/24 13:21 [From Bactrim] trimethoprim [From Bactrim] Allergy Unknown Verified 05/17/24 13:21 trazodone [From Desyrel] AdvReac NAUSEA Verified 05/17/24 13:21 Review of Systems 2 Const: Denies: fever(s), chills or diaphoresis Card: Denies: chest pain Resp: Denies: dyspnea GI: Denies: abdominal pain, nausea or vomiting Skin/Breast: Denies: rash Neuro: Denies: headache(s) PFSH ED 2 PFSH: Medical History No pertinent past medical history neghx: dm,thyroid,dvt/pe PCP: Sm[facility] Macrocytosis without anemia DDD (degenerative disc disease), lumbar Primary osteoarthritis of right knee Hx of stroke without residual deficits Hypertension Surgical History H/O colonoscopy History of liver biopsy H/O eye surgery BILATERAL H/O tubal ligation Status post right knee replacement Family History Father , DOES NOT KNOW AGE Hypertension Mother Breast cancer, Onset Age: 80 Denies family history of Colon cancer Ovarian cancer Diabetes Heart disease Hypercholesteremia Uterine cancer Thyroid disease Stroke Social History Smoking and tobacco/nicotine status: never used tobacco/nicotine Second hand smoke exposure: No Alcohol intake: never Substance/Drug Use: never Physical Exam 2 Const: COMMON NORMALS: no acute distress, average body habitus, alert and well nourished GENERAL APPEARANCE: cooperative ORIENTATION/CONSCIOUSNESS: Yes awake HENMT: COMMON NORMALS: normocephalic and atraumatic HEAD & SCALP: n ormocephalic and atraumatic Eye: COMMON NORMALS: Equal, round and reactive pupils present, EOMs intact bilaterally and negative for conjunctivae normal (Left subconjunctival injection. No discharge or drainage.) CONJUNCTIVA: No conjunctivae normal (Left subconjunctival injection. No discharge or drainage.) PUPIL: Yes Equal, round and reactive pupils present Neck/C-Spine: GENERAL: Yes normal visual inspection Resp: COMMON NORMALS: normal respiratory effort, No retractions and No use of accessory muscles Cardio: COMMON NORMALS: regular rhythm and Peripheral pulses 2+ throughout RHYTHM: regular rhythm PERIPHERAL PULSES: Peripheral pulses 2+ throughout GI: COMMON NORMALS: Soft to palpation and non-tender PALPATION: Yes Soft to palpation Extremity: COMMON NORMALS: full ROM and no pedal edema Neuro: COMMON NORMALS: no focal motor deficits SENSORIUM/ORIENTATION: Yes alert Skin: COMMON NORMALS: no rashes or lesions noted GENERAL SKIN EXAM: no rashes or lesions noted Course 2 Vital Signs: Vital signs: Vital Signs Temperature 98.2 F 07/28/24 13:32 Pulse Rate 61 07/28/24 20:15 Respiratory Rate 16 07/28/24 20:15 Blood Pressure 171/80 07/28/24 20:15 Pulse Oximetry 95 07/28/24 20:15 Oxygen Delivery Me thod Room Air 07/28/24 13:32 MDM - Altered Mental Status Medical Decision Making Patient is a nontoxic 73yo female who presents to the ED with report of confusion. Patient was recently admitted with similar complaints had extensive workup that was unremarkable. Her daughter called ambulance today stating that she was increasingly confused at home. Patient tells me she does not feel safe at home and does not feel that she can continue to function in her current condition. Basic lab workup. Head CT is negative for acute findings. I spoke with the hospitalist who will admit for observation and social work consultation in the morning. Medical Records I reviewed the patient's medical records. Lab Data I reviewed the patient's lab results. 07/28/24 13:16 07/28/24 13:[address] 07/28/24 13:59 IMPRESSION: 1. No acute intracranial hemorrhage or edema. 2. Moderate atrophy and small vessel ischemic disease with lacunar infarcts, stable. Laboratory Results WBC 8.11 10^3/uL (3.29-11.43) 07/28/24 13:16 RBC 4.20 10^6/uL (3.85-5.65) 07/28/24 13:16 Hgb 13.60 g/dL (11.27-16.99) 07/28/24 13:16 Hct 39.3 % (36-47) 07/28/24 13:16 MCV 93.6 fl (85-98) 07/28/24 13:16 MCH 32.4 pg (27-33) 07/28/24 13:16 MCHC 34.6 g/dL (30-55) 07/28/24 13:16 RDW 12.1 % (12.1-15.1) 07/28/24 13:16 Plt Count 159 10^3/cmm (157-399) 07/28/24 13:16 MPV 10.8 fL (7.4-10.4) H 07/28/24 13:16 Neut % (Auto) 63.1 % 07/28/24 13:16 Lymph % (Auto) 20.7 % 07/28/24 13:16 [place] % (Auto) 13.9 % 07/28/24 13:16 Eos % (Auto) 1.6 % 07/28/24 13:16 Baso % (Auto) 0.5 % 07/28/24 13:16 Neut # (Auto) 5.11 10^3/uL (1.8-7.7) 07/28/24 13:16 Lymph # (Auto) 1.7 10^3/uL (0.8-4.8) 07/28/24 13:16 [place] # (Auto) 1.1 10^3/uL (0.2-0.9) H 07/28/24 13:16 Eos # (Auto) 0.1 10^3/uL (0.0-0.8) 07/28/24 13:16 Baso # (Auto) 0.0 10^3/uL (0.0-0.1) 07/28/24 13:16 Nucleated RBC % (auto) 0 % 07/28/24 13:16 Nucleated RBCs # 0.0 /100WBC 07/28/24 13:16 Sodium 143 mmol/L (136-145) 07/28/24 13:16 Potassium 3.7 mmol/L (3.5-5.1) 07/28/24 13:16 Chloride 106 mmol/L (98-107) 07/28/24 13:16 Carbon Dioxide 25 mmol/L (22-29) 07/28/24 13:16 Anion Gap 15.7 (5-19) 07/28/24 13:16 BUN 11 mg/dL (8-23) 07/28/24 13:16 Creatinine 0.8 mg/dL (0.5-0.9) 07/28/24 13:16 GFR Calculation Not Reportable 07/28/24 13:16 Glucose 104 mg/dL (65-115) 07/28/24 13:16 Calculated Osmolality 296 mOsm/kg (285-295) H 07/28/24 13:16 Calcium 9.1 mg/dL (8.5-10.5) 07/28/24 13:16 Total Bilirubin 1.0 mg/dL (0.15-1.2) 07/28/24 13:16 AST 42 U/L (0-32) H 07/28/24 13:16 ALT 33 U/L (0-33) 07/28/24 13:16 Alkaline Phosphatase 57 U/L (35-105) 07/28/24 13:16 Total Protein 7.1 g/dL (6.6-8.7) 07/28/24 13:16 Albumin 3.8 g/dL (3.5-5.2) 07/28/24 13:16 Globulin 3.3 g/dL (1.3-4.6) 07/28/24 13:16 Urine Color Yellow (Yellow) 07/28/24 17:23 Urine Appearance Clear (CLEAR) 07/28/24 17:23 Urine pH 6.0 (5-7) 07/28/24 17:23 Ur Specific [place] 1.017 (1.005-1.030) 07/28/24 17:23 Urine Protein Negative (Negative) 07/28/24 17:23 Urine Glucose (UA) Negative (Normal) 07/28/24 17:23 Urine Ketones Negative (Negative) 07/28/24 17:23 Urine Blood Negative (Negative) 07/28/24 17:23 Urine Nitrate Negative (Negative) 07/28/24 17:23 Urine Bilirubin Negative (Negative) 07/28/24 17:23 Urine Urobilinogen 1.0 mg/dL (Negative) 07/28/24 17:23 Ur Leukocyte Esterase Negative (Negative) 07/28/24 17:23 Urine RBC 0-2 /hpf (0-2) 07/28/24 17:23 Urine WBC 0-5 /hpf (0-5) 07/28/24 17:23 Ur Squamous Epith Cells 6-10 /hpf (0-5) 07/28/24 17:23 Amorphous Sediment Not Reportable 07/28/24 17:23 Urine Bacteria None seen /hpf (NONE) 07/28/24 17:23 Hyaline Casts 0-4 /lpf H 07/28/24 17:23 All radiology interpretation(s) finalized by discharge Discharge Plan Discharge Patient Disposition: Placed in Observation Clinical Impression: Altered mental status, Weakness, Conjunctivitis Coding Level of Care Code ED Helmet Hat Puncher for Jerica Armstrong
[2024-07-28 17:36] LABS: Bilirubin Urine Negative (Negative); Blood Urine Negative (Negative); Glucose Urine UA Negative (Normal); Ketones Urine Negative (Negative); Leukocyte Esterase Urine Negative (Negative); Nitrate Urine Negative (Negative); Protein Urine Negative (Negative); Specific Gravity, Urine 1.017 (1.005-1.030); Urine Appearance Clear (CLEAR); Urine Color Yellow (Yellow)
[2024-07-28 17:39] LABS: Add Urine Microscopic? YES; Bacteria Urine None Seen /hpf; Hyaline Casts Urine 0-4 /lpf; RBC Urine 0-2 /hpf (0-2); WBC Urine 0-5 /hpf (0-5)
--- NOTE | 2024-07-28 19:00 | PC.NURSE ---
This preceptor and nurse Kate RN assumed care of patient at shift change.
--- NOTE | 2024-07-28 21:08 | PC.NURSE ---
Kate COSTA called report to Med-Surg nurse Suzy COSTA.
--- NOTE | 2024-07-28 21:57 | P.HP_ITS ---
Providers/Chief Complaint 2 Admitting Physician: Josephine Kay MD Primary Care Provider: Catherine Hernández Chief Complaint: episodes of confusion History of Present Illness Pili Donohue is a 73 year old female with a past medical history of CVA, hypertension who was recently admitted to the hospital due to chief complaint of altered mental status and discharged recently on July 26, 2024. She was disoriented at the time without any other specific neurological symptoms. She was thought to possibly have subclinical seizures versus transient global amnesia and was started on Keppra. No seizure-like activity was noted during her course in the hospital. CT and MRI of the head were within normal limits. No obvious infectious source was found. Ammonia level was normal. She did have intermittent bradycardia during that hospitalization with heart rate dipping down in the 40s, however it does not appear this correlated with any clinical symptoms. She denies having ever had a Holter monitoring done before. She was discharged with Keppra 500 mg twice a day and referred to see neurology as an outpatient. She was additionally recommended to continue aspirin and statin. Carotid Doppler was normal. Incidentally her blood culture 2 out of 6 bottles was noted to be positive for Staph epidermidis and corynebacterium species. This was likely a contaminant. No infectious source was found. Echocardiogram did not show any vegetations. She requested discharge to home prior to repeat blood culture results being available. She comes back to the emergency room today stating that she has continued to be intermittently confused. At the time of assessment she was alert awake and oriented x 3. She is a poor historian overall and unable to tell me several details. For instance she is currently noted to have bilateral conjunctival suffusion and redness which appears to be conjunctivitis. She is picking and itching her eyes constantly. Review of prior notes shows that patient had seen rheumatology back in 2020 for sicca type symptoms. She had an TIANA panel which was positive with an TIANA titer of 1:1280. It does not appear she went back for follow-up thereafter. She is also noted to have several raised scaly dry lesions over her arms and legs, it appears she was seen by dermatology in April 2021 at which time 1 of these lesions over her hand was biopsied and was suggestive of a fibrokeratoma. 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 No invasive carcinoma identified at the time. Ultrasound of the endometrium at the time had shown scattered cystic areas which had prompted the biopsy. It appears she was recommended surgical management and was referred to see Dr. Newman, however I see several appointment cancellations thereafter. Unable to reach the daughter to get further details at this time Of note patient being a poor historian is documented on outpatient visits going back to 2021. Review of Systems 2 General: Reports: 10 or more systems reviewed and unremarkable except in HPI and below Const: Denies: fever(s), chills or body aches Eyes: Denies: change in vision, blurry vision or photophobia ENMT: Reports: hoarseness; Denies: throat pain, enlarged tonsils, odynophagia or nasal congestion Card: Denies: chest pain, palpitations, irregular heart rhythm, edema, swelling of feet/ankles, lightheadedness, pre-syncope, dyspnea on exertion or orthopnea Resp: Denies: dyspnea, productive cough, non-productive cough, wheezing, stridor, pain on inspiration, change in phlegm color, hemoptysis or chest congestion GI: Denies: abdominal pain, nausea, vomiting, hematemesis, coffee ground emesis, dysphagia, heartburn, diarrhea, constipation, GI cramping, change in stool character, hematochezia or melena : Denies: flank pain, difficulty voiding, dysuria, urinary frequency, urinary urgency, urinary hesitancy or hematuria Musc: Denies: neck pain, back pain, extremity pain, joint swelling, joint warmth or deformity Neuro: Denies: headache(s), numbness in extremities, weakness in extremities, sensory changes, difficulty walking, frequent falls, dizziness, vertigo, behavioral changes, Slurred speech present or seizure-like activity Psych: Denies: anxiety, depression, suicidal ideation or homicidal ideation Endo: Denies: polyuria, polydipsia, tired all the time, cold intolerance or hot flashes Antonino/Lymph: Denies: easy bruising or easy bleeding Medications/Allergies Home Medications Medication Instructions Recorded Confirmed Last Taken Type aspirin 81 mg tablet,delayed 81 mg PO DAILY 12/14/19 07/28/24 07/28/24 08:00 History release cholecalciferol (vitamin D3) 25 1,000 unit PO DAILY 01/12/20 07/28/24 07/28/24 08:00 History mcg/drop (1,000 unit/drop) oral drops hinged knee brace #1 ea 12/16/20 07/28/24 Unknown Rx atorvastatin 40 mg tablet 40 mg PO DAILY 04/15/21 07/28/24 07/28/24 08:00 History lisinopril 20 1 tab PO DAILY 07/24/24 07/28/24 07/28/24 08:00 History mg-hydrochlorothiazide 12.5 mg tablet erythromycin 5 mg/gram (0.5 %) eye 1 applic eye-both Q6H 7 days #3.5 07/26/24 07/28/24 07/28/24 08:00 Rx ointment (3.5 gram tube) grams levetiracetam 500 mg tablet 500 mg PO BID 30 days #60 tabs 07/26/24 07/28/24 07/28/24 08:00 Rx (Keppra) magnesium L-lactate 84 mg 84 mg PO DAILY 2 weeks #14 tabs 07/26/24 07/28/24 07/28/24 08:00 Rx tablet,extended release (Magtab) Allergies Allergy/AdvReac Type Severity Reaction Status Date / Time metformin Allergy Unknown Verified 05/17/24 13:21 Penicillins Allergy Unknown Verified 05/17/24 13:21 sulfamethoxazole Allergy Unknown Verified 05/17/24 13:21 [From Bactrim] trimethoprim [From Bactrim] Allergy Unknown Verified 05/17/24 13:21 trazodone [From Desyrel] AdvReac NAUSEA Verified 05/17/24 13:21 PFSH Acute 2 PFSH: Medical History No pertinent past medical history neghx: dm,thyroid,dvt/pe PCP: Smiley S[facility] Macrocytosis without anemia DDD (degenerative disc disease), lumbar Primary osteoarthritis of right knee Hx of stroke without residual deficits Hypertension Surgical History H/O colonoscopy History of liver biopsy H/O eye surgery BILATERAL H/O tubal ligation Status post right knee replacement Family History Father , DOES NOT KNOW AGE Hypertension Mother Breast cancer, Onset Age: 80 Denies family history of Colon cancer Ovarian cancer Diabetes Heart disease Hypercholesteremia Uterine cancer Thyroid disease Stroke Social History Smoking and tobacco/nicotine status: never used tobacco/nicotine Second hand smoke exposure: No Alcohol intake: never Substance/Drug Use: never Vitals/I&O/Wt Last Vital Signs Temp 98.2 F 07/28/24 13:32 Pulse 60 07/28/24 21:13 Resp 16 07/28/24 20:15 BP 169/80 07/28/24 21:13 Pulse Ox 99 07/28/24 21:13 O2 Del Method Room Air 07/28/24 13:32 Weight last 48 hrs Weight 73.936 kg Weight 73.936 kg Physical Exam 2 Narrative: General: No acute distress, AO x3 HEENT: PERRLA, pupils bilaterally equal and reactive, pallors not present Chest: Normal vesicular breath sounds, no added sounds, equal good air entry bilaterally CVS: S1-S2 regular, no murmurs, no tachycardia, no gallops, no rubs Abdomen: Soft, nontender, no organomegaly, bowel sounds present Neuro: No focal deficits, no facial deformity, AO x3, power 5/5 in all limbs Extremities: Well-healed bilateral scars from knee replacement surgeries. No joint inflammation. Several dry scaly patches noted over hands and bilateral upper and lower extremities Data 07/28/24 13:16 07/28/24 13:16 A&P Assessment and plan (1) Hypertension: (2) TIANA positive: (3) Altered mental status: (4) Weakness: (5) Conjunctivitis: Plan 73-year-old lady with recent history as outlined above, recently evaluated in the hospital for altered mental status, overall evaluation suspicious for subclinical seizures. Patient returns to the emergency room today, she is unable to relate any specific symptoms but states that she has continued to have episodic confusion at home. Additionally she says that she is concerned about Keppra side effects and does not think she needs the medications. She is unable to specify any details but did mention in the ER and again to me right now that she is stressed at home. She lives with family. She mentioned in the ER that she does not feel safe returning home in her current state. Unable to provide any details with regards to if she thinks this is related to her mobility, her episodes of altered mental status or otherwise physical safety at home. Unable to reach patient's family due to the late hour at this time. Recently overall neurological evaluation including CT head MRI head was unremarkable. Patient did improve after initiation of Keppra therefore possibility of subclinical seizures not excluded. Unable to perform EEG over the weekend. She has not yet followed with neurology as an outpatient. Patient does not exhibit any gross neurological deficits at this time. She is awake alert and oriented x 3. She is able to have a conversation, however does not offer details. She rubs her eyes multiple times during the course of her interview. She denies them being itchy. History of sicca type symptoms in the past for which she has been evaluated by rheumatology with a positive TIANA titer. Suspect that her bilateral conjunctival suffusion and redness is likely related to constant picking/scratching versus possibly autoimmune issues. Start Ciprofloxacin eyedrops, olopatadine and artificial tears. No visual compromise. Will obtain a [place] assessment with occupational therapy in the morning to assess patient's safety for independent living, ADLs and safe return to home. Further collateral information to be obtained in the morning with regards to living situation. Case management consulted. Recently positive blood culture for Staph epidermidis and corynebacterium likely contaminant. Repeat blood cultures from July 25 negative to date. Dvt ppx: SCDs Attestations 2 Medical Necessity Statement*: Less than 2 midnight stay anticipated at this time Coding Level of Care Code Acute Code for Chg Fwd Straight Forward/Low MDM includes number and complexity of problems actively addressed during encounter, amount and/or complexity of data reviewed/ordered and described risk of complication, morbidity or mortality of management as documented Diagnoses Hypertension I10 TIANA positive R76.8 Altered mental status R41.82 Weakness R53.1 Conjunctivitis H10.9
[2024-07-28] MEDS: erythromycin Op Oint 1 gm 1 APPLIC EYE-BOTH (22:15)
[2024-07-28 23:17] LABS: Adenovirus Not Detected (NOT DETECT); Chlamydia Pneumoniae Not Detected (NOT DETECT); Coronavirus 229E,HKU1,NL63,OC4 Not Detected (NOT DETECT); Human Metapneumovirus Not Detected (NOT DETECT); Human Rhinovirus/Enterovirus Not Detected (NOT DETECT); Influenza A Not Detected (NOT DETECT); Influenza A H1 Not Detected (NOT DETECT); Influenza A H1-2009 Not Detected (NOT DETECT); Influenza A H3 Not Detected (NOT DETECT); Influenza B Not Detected (NOT DETECT); Mycoplasma Pneumoniae Not Detected (NOT DETECT); Parainfluenza Virus Type 1 Not Detected (NOT DETECT); Parainfluenza Virus Type 2 Not Detected (NOT DETECT); Parainfluenza Virus Type 3 Not Detected (NOT DETECT); Parainfluenza Virus Type 4 Not Detected (NOT DETECT); Respiratory Syncytial Virus A Not Detected (NOT DETECT); Respiratory Syncytial Virus B Not Detected (NOT DETECT); SARS-COV-2 Not Detected (NOT DETECT)
[2024-07-29] VITALS (9 sets, daily range): BP systolic 144–189; BP diastolic 64–96; PULSE 57–72; RESP 14–17; TEMP 36.8–37.3; O2SAT 94–97
[2024-07-29] MEDS: erythromycin Op Oint 1 gm 1 APPLIC EYE-BOTH (04:32)
[2024-07-29] MEDS: artificial tears Op Soln 15 mL Btl 1 DROP EYE-BOTH ×5 (05:35→20:46)
[2024-07-29] MEDS: magnesium lactate 84 mg Tablet PO (08:48)
[2024-07-29] MEDS: pantoprazole DR 40 mg Tablet PO (08:48)
[2024-07-29] MEDS: hydroCHLOROthiazide 25 mg Tablet 12.5 MG PO (08:48)
[2024-07-29] MEDS: levETIRAcetam 500 mg Tablet PO ×2 (08:48→17:32)
[2024-07-29] MEDS: atorvastatin 40 mg Tablet PO (08:48)
[2024-07-29] MEDS: aspirin 81 mg EC Tablet PO (08:48)
[2024-07-29] MEDS: lisinopril 20 mg Tablet PO (08:48)
[2024-07-29] MEDS: olopatadine 0.1% Op Soln 5 mL Btl 1 DROP EYE-BOTH ×2 (10:06→17:34)
[2024-07-29] MEDS: ciprofloxacin 0.3% Op Soln 2.5 mL Btl 1 DROP EYE-BOTH ×4 (10:06→20:46)
--- NOTE | 2024-07-29 11:36 | P.PN_ITS ---
Subjective 2 Subjective: Seen her at bedside this morning. PT at bedside. She seems very anxious, with fear of falling hence not able to cooperate with PT. Denies any complaint of pain or dizziness at this time. Medications: Reviewed: Yes Vitals/I&O/Wt Last Vital Signs Temp 98.2 F 07/29/24 07:37 Pulse 65 07/29/24 07:37 Resp 16 07/29/24 07:37 BP 167/80 07/29/24 07:37 Pulse Ox 95 07/29/24 07:37 O2 Del Method Room Air 07/29/24 07:37 Weight last 48 hrs Weight 74.162 kg Weight 73.936 kg Weight 73.936 kg Physical Exam 2 Narrative: General: No acute distress, AO x3 HEENT: PERRLA, pupils bilaterally equal and reactive, pallors not present Chest: Normal vesicular breath sounds, no added sounds, equal good air entry bilaterally CVS: S1-S2 regular, no murmurs, no tachycardia, no gallops, no rubs Abdomen: Soft, nontender, no organomegaly, bowel sounds present Neuro: No focal deficits, no facial deformity, AO x3, power 5/5 in all limbs Extremities: Well-healed bilateral scars from knee replacement surgeries. No joint inflammation. Several dry scaly patches noted over hands and bilateral upper and lower extremities Data 07/28/24 13:16 07/28/24 13:16 A&P Assessment and plan (1) Hypertension: (2) TIANA positive: (3) Altered mental status: (4) Weakness: (5) Conjunctivitis: Plan 73-year-old lady with recent history as outlined above, recently evaluated in the hospital for altered mental status, overall evaluation suspicious for subclinical seizures. Patient returns to the emergency room today, she is unable to relate any specific symptoms but states that she has continued to have episodic confusion at home. Additionally she says that she is concerned about Keppra side effects and does not think she needs the medications. She is unable to specify any details but did mention in the ER and again to me right now that she is stressed at home. She lives with family. She mentioned in the ER that she does not feel safe returning home in her current state. Unable to provide any details with regards to if she thinks this is related to her mobility, her episodes of altered mental status or otherwise physical safety at home. Unable to reach patient's family due to the late hour at this time. Recently overall neurological evaluation including CT head MRI head was unremarkable. Patient did improve after initiation of Keppra therefore possibility of subclinical seizures not excluded. Unable to perform EEG over the weekend. She has not yet followed with neurology as an outpatient. Patient does not exhibit any gross neurological deficits at this time. She is awake alert and oriented x 3. She is able to have a conversation, however does not offer details. She rubs her eyes multiple times during the course of her interview. She denies them being itchy. History of sicca type symptoms in the past for which she has been evaluated by rheumatology with a positive TIANA titer. Suspect that her bilateral conjunctival suffusion and redness is likely related to constant picking/scratching versus possibly autoimmune issues. Start Ciprofloxacin eyedrops, olopatadine and artificial tears. No visual compromise. Will obtain a Kells assessment with occupational therapy in the morning to assess patient's safety for independent living, ADLs and safe return to home. Further collateral information to be obtained in the morning with regards to living situation. Case management consulted. Recently positive blood culture for Staph epidermidis and corynebacterium likely contaminant. Repeat blood cultures from July 25 negative to date. Dvt ppx: SCDs 10/5--patient seems very anxious to participate with PT secondary to fear of falling. Labs reviewed and are acceptable with no signs of infection at this time. She denies any complaints of fever, chest pain, nausea or vomiting or dizziness. Will follow-up PT for further recommendations and social work for discharge planning. Can do Xanax 0.5 mg 3 times daily as needed. She states with her son at home who has special needs but does not need her physical help and in fact he helps her with her health at times. Attestations 2 Medical Necessity Statement*: She needs hospitalization anticipating crossing 2 midnights for PT evaluation and social work consult. Time Spent in Patient Care: 15 minutes Coding Level of Care Code Acute Code for Chg Fwd Diagnoses Hypertension I10 TIANA positive R76.8 Altered mental status R41.82 Weakness R53.1 Conjunctivitis H10.9 Time Spent (min) 15
[2024-07-30] VITALS (7 sets, daily range): BP systolic 110–160; BP diastolic 63–88; PULSE 55–75; RESP 14–20; TEMP 36.7–36.9; O2SAT 93–96
[2024-07-30] MEDS: artificial tears Op Soln 15 mL Btl 1 DROP EYE-BOTH ×6 (01:31→21:11)
[2024-07-30 04:50] LABS: Basophils # 0.1 10^3/uL (0.0-0.1); Basophils % 0.9 %; Eosinophils # 0.2 10^3/uL (0.0-0.8); Eosinophils % 2.9 %; Hematocrit 38.7 % (36-47); Lymphocytes # 1.7 10^3/uL (0.8-4.8); Lymphocytes % 24.4 %; Mean Corpuscular HGB Conc 34.1 g/dL (30-55); Mean Corpuscular Hemoglobin 32.6 pg (27-33); Mean Corpuscular Volume 95.6 fl (85-98); Mean Platelet Volume 11.3 fL (7.4-10.4); Monocytes # 1.4 10^3/uL (0.2-0.9); Monocytes % 19.3 %; Neutrophils # 3.65 10^3/uL (1.8-7.7); Neutrophils % 52.1 %; Nucleated Red Blood Cells % 0 %; Platelet Count 129 10^3/cmm (157-399); Red Blood Count 4.05 10^6/uL (3.85-5.65); Red Cell Distribution Width 12.1 % (12.1-15.1)
[2024-07-30 05:17] LABS: Alanine Aminotransferase 32 U/L (0-33); Albumin Level 3.5 g/dL (3.5-5.2); Alkaline Phosphatase 63 U/L (35-105); Aspartate Amino Transferase 41 U/L (0-32); Blood Urea Nitrogen 10 mg/dL (8-23); Calcium 8.9 mg/dL (8.5-10.5); Carbon Dioxide 26 mmol/L (22-29); Chloride 103 mmol/L (98-107); Creatinine Clr Calc Pharmacy 57.9822; Globulin 3.4 g/dL (1.3-4.6); Glucose 107 mg/dL (65-115); Osmolality Calculated 290 mOsm/kg (285-295); Sodium 140 mmol/L (136-145); Total Protein 6.9 g/dL (6.6-8.7)
[2024-07-30 05:19] LABS: Anion Gap 14.7 (5-19); Potassium 3.7 mmol/L (3.5-5.1)
[2024-07-30] MEDS: lisinopril 20 mg Tablet PO (08:17)
[2024-07-30] MEDS: pantoprazole DR 40 mg Tablet PO (08:17)
[2024-07-30] MEDS: aspirin 81 mg EC Tablet PO (08:17)
[2024-07-30] MEDS: atorvastatin 40 mg Tablet PO (08:17)
[2024-07-30] MEDS: levETIRAcetam 500 mg Tablet PO ×2 (08:17→17:00)
[2024-07-30] MEDS: magnesium lactate 84 mg Tablet PO (08:17)
[2024-07-30] MEDS: hydroCHLOROthiazide 25 mg Tablet 12.5 MG PO (08:18)
[2024-07-30] MEDS: ciprofloxacin 0.3% Op Soln 2.5 mL Btl 1 DROP EYE-BOTH ×4 (08:23→21:11)
[2024-07-30] MEDS: olopatadine 0.1% Op Soln 5 mL Btl 1 DROP EYE-BOTH ×2 (08:23→17:01)
--- NOTE | 2024-07-30 13:08 | P.PN_ITS ---
Subjective 2 Subjective: No acute events noted. Seen her at bedside. Denies any complaints at this time. Medications: Reviewed: Yes Vitals/I&O/Wt Last Vital Signs Temp 98.0 F 07/30/24 12:00 Pulse 60 07/30/24 12:00 Resp 19 H 07/30/24 12:00 BP 152/88 07/30/24 12:00 Pulse Ox 94 07/30/24 12:00 O2 Del Method Room Air 07/30/24 12:00 07/29/24 07/30/24 07/30/24 22:59 06:59 14:59 Intake Total 240 / 240 840 / 840 Output Total 600 / 600 Balance 240 / 240 240 / 240 Weight last 48 hrs Weight 76.204 kg Weight 74.162 kg Weight 73.936 kg Weight 73.936 kg Physical Exam 2 Narrative: General: No acute distress, AO x3 HEENT: PERRLA, pupils bilaterally equal and reactive, pallors not present Chest: Normal vesicular breath sounds, no added sounds, equal good air entry bilaterally CVS: S1-S2 regular, no murmurs, no tachycardia, no gallops, no rubs Abdomen: Soft, nontender, no organomegaly, bowel sounds present Neuro: No focal deficits, no facial deformity, AO x3, power 5/5 in all limbs Extremities: Well-healed bilateral scars from knee replacement surgeries. No joint inflammation. Several dry scaly patches noted over hands and bilateral upper and lower extremities Data 07/30/24 03:21 07/30/24 03:21 A&P Assessment and plan (1) Hypertension: (2) TIANA positive: (3) Altered mental status: (4) Weakness: (5) Conjunctivitis: Plan 73-year-old lady with recent history as outlined above, recently evaluated in the hospital for altered mental status, overall evaluation suspicious for subclinical seizures. Patient returns to the emergency room today, she is unable to relate any specific symptoms but states that she has continued to have episodic confusion at home. Additionally she says that she is concerned about Keppra side effects and does not think she needs the medications. She is unable to specify any details but did mention in the ER and again to me right now that she is stressed at home. She lives with family. She mentioned in the ER that she does not feel safe returning home in her current state. Unable to provide any details with regards to if she thinks this is related to her mobility, her episodes of altered mental status or otherwise physical safety at home. Unable to reach patient's family due to the late hour at this time. Recently overall neurological evaluation including CT head MRI head was unremarkable. Patient did improve after initiation of Keppra therefore possibility of subclinical seizures not excluded. Unable to perform EEG over the weekend. She has not yet followed with neurology as an outpatient. Patient does not exhibit any gross neurological deficits at this time. She is awake alert and oriented x 3. She is able to have a conversation, however does not offer details. She rubs her eyes multiple times during the course of her interview. She denies them being itchy. History of sicca type symptoms in the past for which she has been evaluated by rheumatology with a positive TIANA titer. Suspect that her bilateral conjunctival suffusion and redness is likely related to constant picking/scratching versus possibly autoimmune issues. Start Ciprofloxacin eyedrops, olopatadine and artificial tears. No visual compromise. Will obtain a Kells assessment with occupational therapy in the morning to assess patient's safety for independent living, ADLs and safe return to home. Further collateral information to be obtained in the morning with regards to living situation. Case management consulted. Recently positive blood culture for Staph epidermidis and corynebacterium likely contaminant. Repeat blood cultures from July 25 negative to date. Dvt ppx: SCDs 07/29--patient seems very anxious to participate with PT secondary to fear of falling. Labs reviewed and are acceptable with no signs of infection at this time. She denies any complaints of fever, chest pain, nausea or vomiting or dizziness. Will follow-up PT for further recommendations and social work for discharge planning. Can do Xanax 0.5 mg 3 times daily as needed. She states with her son at home who has special needs but does not need her physical help and in fact he helps her with her health at times. 07/30--she denies any complaint this morning. Labs reviewed and are acceptable. She did mention she wants to go to subacute nursing facility. Need case management follow-up for discharge planning. Also need to be screened for depression, psychiatry consulted. Will follow for further recommendations. Attestations 2 Medical Necessity Statement*: She needs hospitalization anticipating crossing 2 midnights for PT evaluation and social work consult. Depression screening and recommendations by psychiatry Time Spent in Patient Care: 15 minutes Coding Level of Care Code Acute Code for Chg Fwd Diagnoses Hypertension I10 TIANA positive R76.8 Altered mental status R41.82 Weakness R53.1 Conjunctivitis H10.9 Time Spent (min) 15
--- NOTE | 2024-07-30 23:51 | ECG_ITS ---
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 Measurements Intervals [place] Rate: 71 P: 0 OK: 0 QRS: 10 QRSD: 70 T: 48 QT: 358 QTc: 390 Interpretive Statements SUPRAVENTRICULAR RHYTHM LOW QRS VOLTAGE IN PRECORDIAL LEADS [QRS DEFLECTION < 1.0 mV IN CHEST LEADS] POSSIBLE RIGHT VENTRICULAR CONDUCTION DELAY [RSR (QR) IN V1/V2] NONSPECIFIC T-WAVE ABNORMALITY ABNORMAL RHYTHM ECG Compared to ECG 07/23/2024 15:33:06 Supraventricular rhythm now present Sinus bradycardia no longer present Sinus arrhythmia no longer present Possible ischemia no longer present T-wave abnormality still present Electronically Signed On 08-01-2024 01:18:57 CDT by Shalonda Guerra M.D. [email or web address]
[2024-07-31] VITALS (9 sets, daily range): BP systolic 129–162; BP diastolic 66–93; PULSE 59–82; RESP 17–20; TEMP 36.9–37.6; O2SAT 90–97
--- NOTE | 2024-07-31 00:03 | PC.NURSE ---
Charge nurse alerted this nurse that the laboratory monitor had seen the patient go into bradycardia down into the 40s and that her rhythm had become irregular at times. This nurse went to assess the patient and perform an EKG. The patient was A+Ox4 and had no new complaints. EKG performed and transferred to chart.
[2024-07-31] MEDS: artificial tears Op Soln 15 mL Btl 1 DROP EYE-BOTH ×5 (01:07→20:34)
[2024-07-31] MEDS: levETIRAcetam 500 mg Tablet PO (08:54)
[2024-07-31] MEDS: pantoprazole DR 40 mg Tablet PO (08:54)
[2024-07-31] MEDS: lisinopril 20 mg Tablet PO (08:54)
[2024-07-31] MEDS: atorvastatin 40 mg Tablet PO (08:54)
[2024-07-31] MEDS: ciprofloxacin 0.3% Op Soln 2.5 mL Btl 1 DROP EYE-BOTH ×4 (08:55→20:33)
[2024-07-31] MEDS: olopatadine 0.1% Op Soln 5 mL Btl 1 DROP EYE-BOTH ×2 (08:55→17:27)
[2024-07-31] MEDS: magnesium lactate 84 mg Tablet PO (08:55)
[2024-07-31] MEDS: hydroCHLOROthiazide 25 mg Tablet 12.5 MG PO (08:55)
[2024-07-31] MEDS: aspirin 81 mg EC Tablet PO (08:56)
--- NOTE | 2024-07-31 11:36 | P.PN_ITS ---
Subjective 2 Subjective: Patient is [id number] with her decision for disposition home versus correction Patient was recently discharged from the hospital and came back for worsening confusion She was given Keppra loading dose during previous hospitalization for subclinical seizure concern however her neurological workup has been unremarkable Repeat blood cultures negative Vitals/I&O/Wt Last Vital Signs Temp 98.6 F 07/31/24 07:33 Pulse 63 07/31/24 07:33 Resp 17 07/31/24 07:33 BP 129/66 07/31/24 07:33 Pulse Ox 93 07/31/24 07:33 O2 Del Method Room Air 07/31/24 07:33 07/30/24 07/31/24 07/31/24 22:59 06:59 14:59 Intake Total 240 / 1080 240 / 240 Balance 240 / 480 240 / 240 Weight last 48 hrs Weight 74.707 kg Weight 76.204 kg Physical Exam 2 Narrative: Patient is awake and alert Able to answer simple questions only Short attention span No active signs of seizure Hemodynamic stable currently on room air Euvolemic S1, S2 Patient is consistently rubbing her eyes Data 07/30/24 03:21 07/30/24 03:21 A&P Assessment and plan (1) Hypertension: (2) TIANA positive: (3) Altered mental status: (4) Weakness: (5) Conjunctivitis: Plan 73-year-old lady with recent history as outlined above, recently evaluated in the hospital for altered mental neurological workup unremarkable Awake and alert Short attention span I will discontinue Keppra Continue to topical eyedrops Patient is hemodynamically stable Considering worsening of confusion and short attention span she may need correction placement Patient family reached out who have concerns regarding her condition her inability to care for self at home Attestations 2 Medical Necessity Statement*: Continue medical management Diagnoses Hypertension I10 TIANA positive R76.8 Altered mental status R41.82 Weakness R53.1 Conjunctivitis H10.9
--- NOTE | 2024-07-31 15:38 | P.NPUCON_ITS ---
Providers/Reason for Consult 2 Consulting Physican/Specialty*: Dio Myers MD psychiatry. Reason for Consult*: Confusion/altered mental status Attending Physician: Altagracia Milian MD Primary Care Provider: Catherine Hernández Psych Consult HPI History of Present Illness Pili Donohue is a 73 year old female who presented to the emergency department with the following report: Chief Complaint: Altered Mental Status Stated Complaint: episodes of confusion Time Seen by Provider: 07/28/24 13:38 History of Present Illness: Patient is a 73-year-old female who presents to the ER with reported altered mental status. She was admitted to the hospital here just a few days ago with similar complaints and received extensive workup including CT head and MRI brain. The patient has some difficulty telling me why she was brought here and states that her daughter felt like she was confused. She does states she has felt confused from time to time but is alert and oriented x 3 here. She denies any pain or discomfort currently. She has a left conjunctivitis that she is receiving antibiotics for. Her recent admission stated they felt she may be having subclinical seizures causing some confusion. She denies any chest pain or shortness of breath. No head injury or trauma. No abdominal pain or back pain. MD complaint: confusion Chief complaint The patient was brought to the hospital due to confusion and altered mental status. History of the present complaint The patient, born on [birth year], presented to the hospital due to confusion, which she referred to as an altered mental status. She reported no history of psychiatric hospitalization or outpatient mental health treatment. She denied any history of depression, anxiety, or mood disorders. She also denied any history of paranoia, hallucinations, or nightmares related to past traumatic events. The patient reported that she is currently taking Keppra, a medication typically prescribed for seizures, despite never having had a seizure in her life. She denied any history of substance use, including cigarettes, alcohol, cannabis, and other drugs. She also denied any history of misuse of prescribed opioids for pain. The patient has been three times and three times. She has four biological children, one from her first marriage and three from her last marriage. Her oldest child is a girl from her first marriage, and her youngest child is also a girl. She has a son and another daughter from her second marriage. The patient reported difficulty remembering specific details about her children, including their ages and dates, indicating potential memory issues. The patient reported having been to [facility] once for writing bad checks but did not remember the duration of her incarceration. 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 She currently lives in an apartment with her son since September of the current year. She reported not liking her current living situation but moved there because it was the only place that accepted her. The patient reported experiencing memory problems, particularly with factual information and past events. She was unsure of how long these memory issues have been occurring but believed it has been a while. Despite these memory issues, she demonstrated awareness of the current year, month, city, state, country, and season. She also correctly identified the location of her current consultation. The patient reported experiencing back pain during the consultation. Her mood was described as so-so, and she denied any current thoughts of self-harm or harm to others. She also denied experiencing any paranoia or hallucinations. Mental health history The patient has no history of mental health issues, psychiatric hospitalizations, or outpatient treatment for mental health. The patient has never been on medication for depression, anxiety, or mood stabilization. The patient has no history of depression, anxiety, OCD, paranoia, hallucinations, nightmares, or flashbacks. There is a family history of autism in the patient's grandchildren, but no other mental health issues or addiction issues are reported in the family. Social history The patient has a history of alcohol use when younger but denies any excessive drinking or problems related to alcohol. The patient denies any use of cigarettes, nicotine products, cannabis, cocaine, methamphetamines, or opiates. The patient has never been to a drug and alcohol rehab, has never had a DUI, and has no charges related to paraphernalia or underage drinking. The patient has been three times and three times. The patient has four children, one from the first marriage and three from the last marriage. 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 The patient is currently retired and lives in an apartment with her son since September. The patient has been to [facility] once for writing bad checks. Meds Home Medications and Allergies Home Medications Medication Instructions Recorded Confirmed Last Taken Type aspirin 81 mg tablet,delayed 81 mg PO DAILY 12/14/19 07/28/24 07/28/24 08:00 History release cholecalciferol (vitamin D3) 25 1,000 unit PO DAILY 01/12/20 07/28/24 07/28/24 08:00 History mcg/drop (1,000 unit/drop) oral drops hinged knee brace #1 ea 12/16/20 07/28/24 Unknown Rx atorvastatin 40 mg tablet 40 mg PO DAILY 04/15/21 07/28/24 07/28/24 08:00 History lisinopril 20 1 tab PO DAILY 07/24/24 07/28/24 07/28/24 08:00 History mg-hydrochlorothiazide 12.5 mg tablet erythromycin 5 mg/gram (0.5 %) eye 1 applic eye-both Q6H 7 days #3.5 07/26/24 07/28/24 07/28/24 08:00 Rx ointment (3.5 gram tube) grams levetiracetam 500 mg tablet 500 mg PO BID 30 days #60 tabs 07/26/24 07/28/24 07/28/24 08:00 Rx (Keppra) magnesium L-lactate 84 mg 84 mg PO DAILY 2 weeks #14 tabs 07/26/24 07/28/24 07/28/24 08:00 Rx tablet,extended release (Magtab) Allergies Allergy/AdvReac Type Severity Reaction Status Date / Time metformin Allergy Unknown Verified 05/17/24 13:21 Penicillins Allergy Unknown Verified 05/17/24 13:21 sulfamethoxazole Allergy Unknown Verified 05/17/24 13:21 [From Bactrim] trimethoprim [From Bactrim] Allergy Unknown Verified 05/17/24 13:21 trazodone [From Desyrel] AdvReac NAUSEA Verified 05/17/24 13:21 Current Medications Current Medications Generic Name Dose Route Start Last Admin Trade Name Freq PRN Reason Stop Dose Admin Artificial Tears 1 drop 07/29/24 05:30 07/31/24 06:14 Artificial Tears Op Soln 15 Ml Btl EYE-BOTH Not Given Q4H URIEL Aspirin 81 mg 07/29/24 09:00 07/30/24 08:17 Aspirin 81 Mg Ec Tablet PO 81 mg DAILY URIEL Administration Atorvastatin Calcium 40 mg 07/29/24 09:00 07/30/24 08:17 Atorvastatin 40 Mg Tablet PO 40 mg DAILY URIEL Administration Ciprofloxacin HCl 1 drop 07/29/24 09:00 07/30/24 21:11 Ciprofloxacin 0.3% Op Soln 2.5 Ml Btl EYE-BOTH 1 drop QID URIEL Administration Protocol Hydrochlorothiazide 12.5 mg 07/29/24 09:00 07/30/24 08:18 Hydrochlorothiazide 25 Mg Tablet PO 12.5 mg DAILY URIEL Administration Levetiracetam 500 mg 07/29/24 09:00 07/30/24 17:00 Levetiracetam 500 Mg Tablet PO 500 mg BID URIEL Administration Lisinopril 20 mg 07/29/24 09:00 07/30/24 08:17 Lisinopril 20 Mg Tablet PO 20 mg DAILY URIEL Administration Magnesium Lactate 84 mg 07/29/24 09:00 07/30/24 08:17 Magnesium Lactate 84 Mg Tablet PO 84 mg DAILY URIEL Administration Olopatadine HCl 1 drop 07/29/24 09:00 07/30/24 17:01 Olopatadine 0.1% Op Soln 5 Ml Btl EYE-BOTH 1 drop BID URIEL Administration Pantoprazole Sodium 40 mg 07/29/24 09:00 07/30/24 08:[address] 40 Mg Tablet PO 40 mg DAILY URIEL Administration PFSH NPU 2 PFSH: Medical History No pertinent past medical history neghx: dm,thyroid,dvt/pe PCP: Sm[facility] Macrocytosis without anemia DDD (degenerative disc disease), lumbar Primary osteoarthritis of right knee Hx of stroke without residual deficits Hypertension Surgical History H/O colonoscopy History of liver biopsy H/O eye surgery BILATERAL H/O tubal ligation Status post right knee replacement Family History Father , DOES NOT KNOW AGE Hypertension Mother Breast cancer, Onset Age: 80 Denies family history of Colon cancer Ovarian cancer Diabetes Heart disease Hypercholesteremia Uterine cancer Thyroid disease Stroke Social History Smoking and tobacco/nicotine status: never used tobacco/nicotine Second hand smoke exposure: No Alcohol intake: never Substance/Drug Use: never Mental Status Exam 2 MSE Comments: This is an 81 weight versus obese white female looking older than her stated age in hospital gown with limited grooming and eye contact.? No abnormal involuntary motor movements today. She was mostly cooperative with exam in no acute distress.? Speech was normal volume, prosody and normal in rate. Mood described as tired confused, Her affect was pleasant and congruent. Thought process was linear mostly. Thought content: Patient denies suicidal or homicidal ideation. There were no delusions reported or noted, she denied auditory or visual hallucinations. The patient's mood is described as so-so . The patient denies any current thoughts of self-harm, harm to others, paranoia, or hallucinations. The patient is aware of the year, month, city, county, state, country, season, and location. The patient struggles with remembering factual information such as birthdays and has been experiencing memory problems for a while Her attention and concentration were intact and memory appeared mostly unreliable, but none were formally tested.? She is alert and oriented x person and place.? Insight and judgment limited, impulse control is limited versus impaired.? Vitals/I&O/Wt Last Vital Signs Temp 98.7 F 07/31/24 04:00 Pulse 66 07/31/24 06:45 Resp 20 H 07/31/24 04:00 BP 162/75 07/31/24 04:00 Pulse Ox 94 07/31/24 04:00 O2 Del Method Room Air 07/31/24 04:00 07/30/24 07/31/24 07/31/24 22:59 06:59 14:59 Intake Total 240 / 1080 Balance 240 / 480 Weight last 48 hrs Weight 74.707 kg Weight 76.204 kg Data NPU 07/30/24 03:21 07/30/24 03:21 A&P Assessment and plan (1) Altered mental status: Plan This is a 73-year-old white female with no history of mental health issues reported but presenting now with confusion and memory difficulties but no clear medical comorbidity noted at this time. The patient presents with cognitive deficits and confusion, which necessitated hospital admission. The patient has no history of psychiatric disorders but has a family history of autism in her grandchildren. The patient's mood is stable, and she denies any thoughts of self-harm or harm to others. The patient's cognitive deficits have been chronic and are causing distress. 1. Continue current medication. 2. Consider either Aricept or memantine. 3. Will continue to follow Attestations NPU 2 Medical Necessity Statement*: N/A. Please see primary team note for medical necessity. Coding Level of Care Code Acute Code for Chg Fwd Diagnoses Altered mental status R41.82
[2024-08-01] VITALS (8 sets, daily range): BP systolic 97–156; BP diastolic 60–78; PULSE 63–127; RESP 16–20; TEMP 36.5–37.6; O2SAT 91–96
[2024-08-01] MEDS: artificial tears Op Soln 15 mL Btl 1 DROP EYE-BOTH ×5 (04:13→21:08)
[2024-08-01] MEDS: magnesium lactate 84 mg Tablet PO (08:42)
[2024-08-01] MEDS: pantoprazole DR 40 mg Tablet PO (08:42)
[2024-08-01] MEDS: atorvastatin 40 mg Tablet PO (08:42)
[2024-08-01] MEDS: olopatadine 0.1% Op Soln 5 mL Btl 1 DROP EYE-BOTH ×2 (08:43→18:18)
[2024-08-01] MEDS: hydroCHLOROthiazide 25 mg Tablet 12.5 MG PO (08:43)
[2024-08-01] MEDS: aspirin 81 mg EC Tablet PO (08:43)
[2024-08-01] MEDS: ciprofloxacin 0.3% Op Soln 2.5 mL Btl 1 DROP EYE-BOTH ×4 (08:43→21:08)
[2024-08-01] MEDS: lisinopril 20 mg Tablet PO (08:43)
--- NOTE | 2024-08-01 13:07 | P.PN_ITS ---
Subjective 2 Subjective: Patient walked 80 feet Not endorsing active complaints Appreciate psychiatry evaluation and recommendations Patient seems to have age-related cognitive impairment which is chronic Vitals/I&O/Wt Last Vital Signs Temp 97.7 F 08/01/24 11:24 Pulse 71 08/01/24 11:24 Resp 18 08/01/24 11:24 BP 113/66 08/01/24 11:24 Pulse Ox 96 08/01/24 11:24 O2 Del Method Room Air 08/01/24 11:24 07/31/24 08/01/24 08/01/24 22:59 06:59 14:59 Intake Total 360 / 718 540 / 540 Balance 360 / 718 540 / 540 Weight last 48 hrs Weight 72.348 kg Weight 74.707 kg Physical Exam 2 Narrative: Awake and alert Short attention span Able to answers simple questions Nonfocal neuroexam GCS 15 Pleasant and cooperative Laying supine Conjunctivitis of her eyes noted Data 07/30/24 03:21 07/30/24 03:21 A&P Assessment and plan (1) Hypertension: (2) TIANA positive: (3) Altered mental status: (4) Weakness: (5) Conjunctivitis: Plan 73-year-old lady with recent history as outlined above, recently evaluated in the hospital for altered mental neurological workup unremarkable Plan to discharge her to SNF Walk 80 feet Age-related cognitive impairment Discontinued Keppra No need of antiepileptics at this point Full code Cardiac diet Attestations 2 Medical Necessity Statement*: Discharge in next 24 to 48 hours Diagnoses Hypertension I10 TIANA positive R76.8 Altered mental status R41.82 Weakness R53.1 Conjunctivitis H10.9
[2024-08-02] VITALS (10 sets, daily range): BP systolic 108–145; BP diastolic 66–76; PULSE 57–72; RESP 14–17; TEMP 36.6–37.3; O2SAT 91–97
[2024-08-02] MEDS: artificial tears Op Soln 15 mL Btl 1 DROP EYE-BOTH ×5 (06:34→21:22)
[2024-08-02] MEDS: acetaminophen 325 mg Tablet 650 MG PO ×2 (08:20→21:17)
[2024-08-02] MEDS: ciprofloxacin 0.3% Op Soln 2.5 mL Btl 1 DROP EYE-BOTH ×4 (08:21→21:16)
[2024-08-02] MEDS: aspirin 81 mg EC Tablet PO (08:21)
[2024-08-02] MEDS: atorvastatin 40 mg Tablet PO (08:21)
[2024-08-02] MEDS: hydroCHLOROthiazide 25 mg Tablet 12.5 MG PO (08:22)
[2024-08-02] MEDS: magnesium lactate 84 mg Tablet PO (08:23)
[2024-08-02] MEDS: pantoprazole DR 40 mg Tablet PO (08:23)
[2024-08-02] MEDS: olopatadine 0.1% Op Soln 5 mL Btl 1 DROP EYE-BOTH ×2 (08:24→17:44)
[2024-08-02] MEDS: lisinopril 20 mg Tablet PO (08:27)
--- NOTE | 2024-08-02 13:00 | P.PN_ITS ---
Subjective 2 Subjective: No overnight events Patient is stating that she is not sure whether her eye infection is improving but she keeps rubbing her eyes Vitals/I&O/Wt Last Vital Signs Temp 98.3 F 08/02/24 12:00 Pulse 60 08/02/24 12:00 Resp 14 08/02/24 12:00 BP 114/66 08/02/24 12:00 Pulse Ox 91 08/02/24 12:00 O2 Del Method Room Air 08/02/24 12:00 08/01/24 08/02/24 08/02/24 22:59 06:59 14:59 Intake Total 110 / 650 118 / 118 Balance 110 / 650 118 / 118 Weight last 48 hrs Weight 73.709 kg Weight 72.348 kg Physical Exam 2 Narrative: Mild crusting around left eye otherwise drainage has improved She still has signs of conjunctivitis No pain on pressing around her eye Answering simple questions Stating she does not know to most of the questions Able to move extremities Euvolemic Currently on room air Abdomen is soft Data 07/30/24 03:21 07/30/24 03:21 A&P Assessment and plan (1) Hypertension: (2) TIANA positive: (3) Altered mental status: (4) Weakness: (5) Conjunctivitis: Plan Metabolic encephalopathy: Currently she is at baseline Appreciate psych recommendations Cognitive impairment related to her age No sign of seizure discontinued Keppra Hypertension: Improved with use of lisinopril high-dose Conjunctivitis: Crusting has improved however she still has hyperemia of conjunctiva No tenderness on palpation of eyeball 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
[2024-08-02 15:33] LABS: Vitamin B12 376 pg/mL (232-1245)
[2024-08-02] MEDS: magnesium oxide 400 mg tablet PO (17:44)
[2024-08-02] MEDS: ALPRAZolam 0.5 mg Tablet PO (21:17)
[2024-08-03] VITALS (12 sets, daily range): BP systolic 120–157; BP diastolic 69–84; PULSE 60–101; RESP 16–20; TEMP 36.4–36.8; O2SAT 93–97
[2024-08-03] MEDS: artificial tears Op Soln 15 mL Btl 1 DROP EYE-BOTH ×6 (01:48→20:49)
[2024-08-03] MEDS: magnesium lactate 84 mg Tablet PO (09:02)
[2024-08-03] MEDS: magnesium oxide 400 mg tablet PO ×2 (09:03→17:58)
[2024-08-03] MEDS: hydroCHLOROthiazide 25 mg Tablet 12.5 MG PO (09:03)
[2024-08-03] MEDS: lisinopril 20 mg Tablet PO (09:03)
[2024-08-03] MEDS: predniSONE 20 mg Tablet 40 MG PO (09:03)
[2024-08-03] MEDS: aspirin 81 mg EC Tablet PO (09:03)
[2024-08-03] MEDS: pantoprazole DR 40 mg Tablet PO (09:03)
[2024-08-03] MEDS: ciprofloxacin 0.3% Op Soln 2.5 mL Btl 1 DROP EYE-BOTH ×3 (09:04→17:59)
[2024-08-03] MEDS: olopatadine 0.1% Op Soln 5 mL Btl 1 DROP EYE-BOTH ×2 (09:05→17:59)
--- NOTE | 2024-08-03 11:29 | PM.PN ---
Subjective Subjective: There is remarkable improvement in her mentation and mood today She is still concerned about her eyes, there is thick drainage in her eyes noted during examination She is sitting at the bedside, had a bowel movement today She is well aware that it will take time for her to go to a correction Her B12 level is around 376 Vitals/I&O/Wt Last Vital Signs Temp 97.8 F 08/03/24 08:00 Pulse 67 08/03/24 08:00 Resp 17 08/03/24 08:00 BP 121/69 08/03/24 08:00 Pulse Ox 97 08/03/24 07:28 O2 Del Method Room Air 08/03/24 07:28 08/02/24 08/03/24 08/03/24 22:59 06:59 14:59 Intake Total 220 / 338 360 / 360 Balance 220 / 338 360 / 360 Weight last 48 hrs Weight 74.077 kg Weight 73.709 kg Physical Exam Narrative: Awake and alert Euvolemic Bilateral conjunctivitis with thick yellow drainage I do not see any signs of acute red eyes/glaucoma Nonfocal neuroexam GCS 15 Pleasant S1, S2 Currently on room air Data 07/30/24 03:21 07/30/24 03:21 A&P Assessment and plan (1) Hypertension: (2) TIANA positive: (3) Altered mental status: (4) Weakness: (5) Conjunctivitis: Plan Metabolic encephalopathy: Awaiting correction placement level 2 authorization needed Patient seems to be doing well at this point Remarkable improvement in her mentation No sign of seizure discontinued Keppra Hypertension: Improved with use of lisinopril high-dose Conjunctivitis: No signs of temporal arteritis, no sign of glaucoma, seems to be bacterial conjunctivitis she is on ciprofloxacin eyedrops l 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
[2024-08-04] VITALS (10 sets, daily range): BP systolic 103–124; BP diastolic 64–74; PULSE 62–77; RESP 15–18; TEMP 36.4–36.7; O2SAT 91–97
[2024-08-04 05:19] LABS: Blood Urea Nitrogen 19 mg/dL (8-23); Calcium 8.7 mg/dL (8.5-10.5); Carbon Dioxide 24 mmol/L (22-29); Chloride 102 mmol/L (98-107); Creatinine Clr Calc Pharmacy 56.8102; Glucose 120 mg/dL (65-115); Osmolality Calculated 287 mOsm/kg (285-295); Sodium 137 mmol/L (136-145)
[2024-08-04 05:22] LABS: Anion Gap 15.2 (5-19); Potassium 4.2 mmol/L (3.5-5.1)
--- NOTE | 2024-08-04 07:16 | PC.NURSE ---
Went in patients room this am, both arm bands thrown on floor along with telemetry box. Patient allowed arm bands to be put on but refused the Telemetry box.
[2024-08-04] MEDS: aspirin 81 mg EC Tablet PO (09:11)
[2024-08-04] MEDS: tobramycin-dexametha Op Susp 5 mL Btl 2 DROP EYE-BOTH ×4 (09:11→21:37)
[2024-08-04] MEDS: magnesium lactate 84 mg Tablet PO (09:12)
[2024-08-04] MEDS: pantoprazole DR 40 mg Tablet PO (09:13)
[2024-08-04] MEDS: predniSONE 20 mg Tablet 40 MG PO (09:13)
[2024-08-04] MEDS: hydroCHLOROthiazide 25 mg Tablet 12.5 MG PO (09:13)
[2024-08-04] MEDS: magnesium oxide 400 mg tablet PO ×2 (09:13→17:38)
[2024-08-04] MEDS: lisinopril 20 mg Tablet PO (09:14)
[2024-08-04] MEDS: artificial tears Op Soln 15 mL Btl 1 DROP EYE-BOTH ×4 (09:15→21:37)
[2024-08-04] MEDS: olopatadine 0.1% Op Soln 5 mL Btl 1 DROP EYE-BOTH ×2 (09:15→17:38)
--- NOTE | 2024-08-04 11:34 | P.PN_ITS ---
Subjective 2 Subjective: Patient stating that eye redness and itching has slightly improved She is sitting at the bedside Able to communicate Vitals/I&O/Wt Last Vital Signs Temp 97.9 F 08/04/24 08:00 Pulse 77 08/04/24 11:00 Resp 18 08/04/24 04:00 BP 116/74 08/04/24 11:00 Pulse Ox 95 08/04/24 11:00 O2 Del Method Room Air 08/04/24 11:00 08/03/24 08/04/24 08/04/24 22:59 06:59 14:59 Intake Total 360 / 1080 240 / 240 Output Total 700 / 700 Balance -340 / 380 240 / 240 Weight last 48 hrs Weight 73.284 kg Weight 74.077 kg Physical Exam 2 Narrative: Awake and alert Euvolemic Erythema hyperemia of bilateral conjunctive improving GCS 15 nonfocal neuroexam Pleasant cooperative Nonfocal neuroexam S1, S2 Currently on room air Data 07/30/24 03:21 08/04/24 04:09 A&P Assessment and plan (1) Hypertension: (2) TIANA positive: (3) Altered mental status: (4) Weakness: (5) Conjunctivitis: Plan Metabolic encephalopathy: Resolved 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
[2024-08-04] MEDS: predniSONE 20 mg Tablet PO (17:38)
[2024-08-04] MEDS: ALPRAZolam 0.5 mg Tablet PO (17:49)
[2024-08-05] MEDS: artificial tears Op Soln 15 mL Btl 1 DROP EYE-BOTH ×6 (01:37→22:08)
[2024-08-05 04:00] VITALS: BP 105/59; PULSE 59; RESP 19; TEMP 36.6; O2SAT 94
[2024-08-05 07:13] VITALS: BP 114/62; PULSE 61; TEMP 36.8; O2SAT 97
[2024-08-05] MEDS: magnesium lactate 84 mg Tablet PO (08:10)
[2024-08-05] MEDS: hydroCHLOROthiazide 25 mg Tablet 12.5 MG PO (08:10)
[2024-08-05] MEDS: predniSONE 20 mg Tablet PO ×2 (08:10→17:04)
[2024-08-05] MEDS: pantoprazole DR 40 mg Tablet PO (08:10)
[2024-08-05] MEDS: magnesium oxide 400 mg tablet PO ×2 (08:10→17:04)
[2024-08-05] MEDS: lisinopril 20 mg Tablet PO (08:10)
[2024-08-05] MEDS: tobramycin-dexametha Op Susp 5 mL Btl 2 DROP EYE-BOTH ×4 (08:10→21:44)
[2024-08-05] MEDS: aspirin 81 mg EC Tablet PO (08:10)
[2024-08-05] MEDS: olopatadine 0.1% Op Soln 5 mL Btl 1 DROP EYE-BOTH ×2 (08:11→17:04)
--- NOTE | 2024-08-05 09:28 | P.PN_ITS ---
Subjective 2 Subjective: Patient is awake and alert Uveitis signs improving with steroids Vitals/I&O/Wt Last Vital Signs Temp 98.3 F 08/05/24 07:13 Pulse 61 08/05/24 07:13 Resp 19 H 08/05/24 04:00 BP 114/62 08/05/24 07:13 Pulse Ox 97 08/05/24 07:13 O2 Del Method Room Air 08/05/24 07:13 08/04/24 08/05/24 08/05/24 22:59 06:59 14:59 Intake Total 360 / 840 Balance 360 / 840 Weight last 48 hrs Weight 73.391 kg Weight 73.284 kg Physical Exam 2 Narrative: Pleasant cooperative Euvolemic Patient dorsum feeling better Nonfocal neuroexam Abdomen soft Currently on room air Data 07/30/24 03:21 08/04/24 04:09 A&P Assessment and plan (1) Hypertension: (2) TIANA positive: (3) Altered mental status: (4) Weakness: (5) Conjunctivitis: Plan Metabolic encephalopathy: Resolved 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
[2024-08-05 11:56] VITALS: BP 126/76; PULSE 44; RESP 18; TEMP 36.7; O2SAT 92
[2024-08-05 16:00] VITALS: BP 126/81; PULSE 76; RESP 16; TEMP 36.7; O2SAT 97
[2024-08-05 19:51] VITALS: BP 120/73; PULSE 79; RESP 16; TEMP 36.5; O2SAT 95
[2024-08-06] VITALS: BP 115/62; PULSE 61; RESP 18; TEMP 36.7; O2SAT 98
[2024-08-06] MEDS: artificial tears Op Soln 15 mL Btl 1 DROP EYE-BOTH ×6 (02:02→20:33)
[2024-08-06 04:00] VITALS: BP 160/79; PULSE 59; RESP 18; TEMP 36.6; O2SAT 96
[2024-08-06] MEDS: magnesium oxide 400 mg tablet PO ×2 (07:50→17:35)
[2024-08-06] MEDS: aspirin 81 mg EC Tablet PO (07:50)
[2024-08-06] MEDS: magnesium lactate 84 mg Tablet PO (07:50)
[2024-08-06] MEDS: predniSONE 20 mg Tablet PO (07:51)
[2024-08-06] MEDS: tobramycin-dexametha Op Susp 5 mL Btl 2 DROP EYE-BOTH ×3 (07:51→17:35)
[2024-08-06] MEDS: lisinopril 20 mg Tablet PO (07:51)
[2024-08-06] MEDS: pantoprazole DR 40 mg Tablet PO (07:51)
[2024-08-06] MEDS: hydroCHLOROthiazide 25 mg Tablet 12.5 MG PO (07:51)
[2024-08-06] MEDS: olopatadine 0.1% Op Soln 5 mL Btl 1 DROP EYE-BOTH ×2 (07:52→17:35)
[2024-08-06 08:52] VITALS: BP 156/66; PULSE 65; RESP 19; TEMP 36.9; O2SAT 97
[2024-08-06 12:00] VITALS: BP 146/86; PULSE 67; RESP 18; TEMP 36.7; O2SAT 96
--- NOTE | 2024-08-06 12:47 | P.PN_ITS ---
Subjective 2 Subjective: Patient doing well Redness of eyes improving significantly Vitals/I&O/Wt Last Vital Signs Temp 98.0 F 08/06/24 12:00 Pulse 67 08/06/24 12:00 Resp 18 08/06/24 12:00 BP 146/86 08/06/24 12:00 Pulse Ox 96 08/06/24 12:00 O2 Del Method Room Air 08/06/24 12:00 08/05/24 08/06/24 08/06/24 22:59 06:59 14:59 Intake Total 240 / 720 600 / 600 Balance 240 / 720 600 / 600 Weight last 48 hrs Weight 73.618 kg Weight 73.391 kg Physical Exam 2 Narrative: Nonfocal neuroexam Abdomen soft S1, S2 Pleasant cooperative Erythema vitals improving Data 07/30/24 03:21 08/04/24 04:09 A&P Assessment and plan (1) Hypertension: (2) TIANA positive: (3) Altered mental status: (4) Weakness: (5) Conjunctivitis: Plan Overall patient has shown significant improvement in her mentation, uveitis signs have improved as well I will start tapering TobraDex dose now Awaiting placement Attestations 2 Medical Necessity Statement*: Continue medical management Diagnoses Hypertension I10 TIANA positive R76.8 Altered mental status R41.82 Weakness R53.1 Conjunctivitis H10.9
[2024-08-06 16:31] VITALS: BP 160/81; PULSE 74; RESP 18; TEMP 36.7; O2SAT 97
[2024-08-06] MEDS: acetaminophen 325 mg Tablet 650 MG PO (17:54)
[2024-08-06 19:56] VITALS: BP 137/80; PULSE 78; RESP 16; TEMP 36.7; O2SAT 96
[2024-08-07] VITALS: BP 128/67; PULSE 57; RESP 15; TEMP 36.7; O2SAT 98
[2024-08-07 04:00] VITALS: BP 102/62; PULSE 63; RESP 15; TEMP 36.9; O2SAT 96
[2024-08-07] MEDS: artificial tears Op Soln 15 mL Btl 1 DROP EYE-BOTH ×2 (05:47→09:18)
[2024-08-07 07:32] VITALS: BP 97/63; PULSE 54; RESP 18; TEMP 36.9; O2SAT 91
[2024-08-07] MEDS: aspirin 81 mg EC Tablet PO (09:15)
[2024-08-07] MEDS: hydroCHLOROthiazide 25 mg Tablet 12.5 MG PO (09:15)
[2024-08-07] MEDS: pantoprazole DR 40 mg Tablet PO (09:15)
[2024-08-07] MEDS: magnesium oxide 400 mg tablet PO (09:15)
[2024-08-07] MEDS: lisinopril 20 mg Tablet PO (09:15)
[2024-08-07] MEDS: magnesium lactate 84 mg Tablet PO (09:18)
[2024-08-07] MEDS: olopatadine 0.1% Op Soln 5 mL Btl 1 DROP EYE-BOTH (09:18)
[2024-08-07] MEDS: tobramycin-dexametha Op Susp 5 mL Btl 2 DROP EYE-BOTH (09:18)
--- NOTE | 2024-08-07 10:29 | P.DS_ITS ---
Discharge Providers Date of Admission: 07/28/24 20:36 Date of Discharge: August 07, 2024 Attending Provider at Admission: Josephine Kay MD Attending Provider at Discharge: Radha Johnson MD Primary Care Provider: Catherine Hernández Diagnoses at Discharge Discharge Diagnosis (1) Hypertension: Status: Acute (2) TIANA positive: Status: Acute (3) Altered mental status: Status: Acute (4) Weakness: Status: Acute (5) Conjunctivitis: Status: Acute Reason for Visit Reason for Visit: episodes of confusion Hospital Course Hospital Course 73-year-old female who was originally from the hospital after management of confusion, no exact etiology was found she was put on Keppra for subclinical seizure however she returned for worsening of her symptoms, during this hospitalization when I evaluated her she seemed to have uveitis and on and off confusion, I decided to put her on TobraDex and prednisone which significantly improved uveitis, redness of eyes and her confusion. 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 Love marketing content coordinator who is willing to follow-up with her because fit with TobraDex she will need to taper steroids gradually. I have conveyed this to her daughter who is in agreement. I have given her referral to see knuckle strap sewer as well. For her hypertension she will get lisinopril 20 mg daily I have discontinued hydrochlorothiazide at this point Physical Exam Narrative: Awake and alert GCS 15 Uveitis/erythema of eyes improved Nonfocal neuroexam GCS 15 Hemodynamically stable Discharge Data Studies Completed and Pending Completed Studies During Hospitalization Category Date Time Status CT head wo con* [id number] Stat Cat Scan 07/28/24 13:59 Completed Pending at discharge Category Date Time Status COVID [SARS Covid-2 Antigen] Routine Lab 08/07/24 08:24 Uncollected Radiology Impressions Head CT 07/28/24 13:59 IMPRESSION: 1. No acute intracranial hemorrhage or edema. 2. Moderate atrophy and small vessel ischemic disease with lacunar infarcts, stable. Laboratory Results WBC 7.00 10^3/uL (3.29-11.43) 07/30/24 03:21 RBC 4.05 10^6/uL (3.85-5.65) 07/30/24 03:21 Hgb 13.20 g/dL (11.27-16.99) 07/30/24 03:21 Hct 38.7 % (36-47) 07/30/24 03:21 MCV 95.6 fl (85-98) 07/30/24 03:21 MCH 32.6 pg (27-33) 07/30/24 03:21 MCHC 34.1 g/dL (30-55) 07/30/24 03:21 RDW 12.1 % (12.1-15.1) 07/30/24 03:21 Plt Count 129 10^3/cmm (157-399) L 07/30/24 03:21 MPV 11.3 fL (7.4-10.4) H 07/30/24 03:21 Neut % (Auto) 52.1 % 07/30/24 03:21 Lymph % (Auto) 24.4 % 07/30/24 03:21 [place] % (Auto) 19.3 % 07/30/24 03:21 Eos % (Auto) 2.9 % 07/30/24 03:21 Baso % (Auto) 0.9 % 07/30/24 03:21 Neut # (Auto) 3.65 10^3/uL (1.8-7.7) 07/30/24 03:21 Lymph # (Auto) 1.7 10^3/uL (0.8-4.8) 07/30/24 03:21 [place] # (Auto) 1.4 10^3/uL (0.2-0.9) H 07/30/24 03:21 Eos # (Auto) 0.2 10^3/uL (0.0-0.8) 07/30/24 03:21 Baso # (Auto) 0.1 10^3/uL (0.0-0.1) 07/30/24 03:21 Nucleated RBC % (auto) 0 % 07/30/24 03:21 Nucleated RBCs # 0.0 /100WBC 07/30/24 03:21 Sodium 137 mmol/L (136-145) 08/04/24 04:09 Potassium 4.2 mmol/L (3.5-5.1) 08/04/24 04:09 Chloride 102 mmol/L (98-107) 08/04/24 04:09 Carbon Dioxide 24 mmol/L (22-29) 08/04/24 04:09 Anion Gap 15.2 (5-19) 08/04/24 04:09 BUN 19 mg/dL (8-23) 08/04/24 04:09 Creatinine 0.8 mg/dL (0.5-0.9) 08/04/24 04:09 GFR Calculation Not Reportable 08/04/24 04:09 Glucose 120 mg/dL (65-115) H 08/04/24 04:09 Calculated Osmolality 287 mOsm/kg (285-295) 08/04/24 04:09 Calcium 8.7 mg/dL (8.5-10.5) 08/04/24 04:09 Total Bilirubin 1.0 mg/dL (0.15-1.2) 07/30/24 03:21 AST 41 U/L (0-32) H 07/30/24 03:21 ALT 32 U/L (0-33) 07/30/24 03:21 Alkaline Phosphatase 63 U/L (35-105) 07/30/24 03:21 Total Protein 6.9 g/dL (6.6-8.7) 07/30/24 03:21 Albumin 3.5 g/dL (3.5-5.2) 07/30/24 03:21 Globulin 3.4 g/dL (1.3-4.6) 07/30/24 03:21 Vitamin B12 376 pg/mL (232-1245) 08/02/24 14:23 Urine Color Yellow (Yellow) 07/28/24 17:23 Urine Appearance Clear (CLEAR) 07/28/24 17:23 Urine pH 6.0 (5-7) 07/28/24 17:23 Ur Specific [place] 1.017 (1.005-1.030) 07/28/24 17:23 Urine Protein Negative (Negative) 07/28/24 17:23 Urine Glucose (UA) Negative (Normal) 07/28/24 17:23 Urine Ketones Negative (Negative) 07/28/24 17:23 Urine Blood Negative (Negative) 07/28/24 17:23 Urine Nitrate Negative (Negative) 07/28/24 17:23 Urine Bilirubin Negative (Negative) 07/28/24 17:23 Urine Urobilinogen 1.0 mg/dL (Negative) 07/28/24 17:23 Ur Leukocyte Esterase Negative (Negative) 07/28/24 17:23 Urine RBC 0-2 /hpf (0-2) 07/28/24 17:23 Urine WBC 0-5 /hpf (0-5) 07/28/24 17:23 Ur Squamous Epith Cells 6-10 /hpf (0-5) 07/28/24 17:23 Amorphous Sediment Not Reportable 07/28/24 17:23 Urine Bacteria None seen /hpf (NONE) 07/28/24 17:23 Hyaline Casts 0-4 /lpf H 07/28/24 17:23 Adenovirus (PCR) Not detected (NOT DETECT) 07/28/24 21:08 C. pneumoniae DNA (PCR) Not detected (NOT DETECT) 07/28/24 21:08 Coronavirus 229E (PCR) Not detected (NOT DETECT) 07/28/24 21:08 Human Metapneumovir PCR Not detected (NOT DETECT) 07/28/24 21:08 Influenza A (H1) PCR Not detected (NOT DETECT) 07/28/24 21:08 Influ A (H1/09) PCR Not detected (NOT DETECT) 07/28/24 21:08 Influenza A (H3) PCR Not detected (NOT DETECT) 07/28/24 21:08 Influenza Type A (PCR) Not detected (NOT DETECT) 07/28/24 21:08 Influenza Type B (PCR) Not detected (NOT DETECT) 07/28/24 21:08 M. pneumoniae (PCR) Not detected (NOT DETECT) 07/28/24 21:08 Parainfluenza 1 (PCR) Not detected (NOT DETECT) 07/28/24 21:08 Parainfluenza 2 (PCR) Not detected (NOT DETECT) 07/28/24 21:08 Parainfluenza 3 (PCR) Not detected (NOT DETECT) 07/28/24 21:08 Parainfluenza 4 (PCR) Not detected (NOT DETECT) 07/28/24 21:08 RSV Type A (PCR) Not detected (NOT DETECT) 07/28/24 21:08 RSV Type B (PCR) Not detected (NOT DETECT) 07/28/24 21:08 Entero/Rhino (PCR) Not detected (NOT DETECT) 07/28/24 21:08 SARS-CoV-2 (PCR) Not detected (NOT DETECT) 07/28/24 21:08 Vitals Last Vital Signs Temp 98.5 F 08/07/24 07:32 Pulse 54 L 08/07/24 07:32 Resp 18 08/07/24 07:32 BP 97/63 08/07/24 07:32 Pulse Ox 91 08/07/24 07:32 O2 Del Method Room Air 08/07/24 07:32 Discharge Plan Discharge Patient Disposition: Xfer SNF Condition: Stable Prescriptions: New lisinopril 20 mg Tablet 20 mg PO DAILY Qty: 60 0RF tobramycin-dexamethasone 0.3-0.1 % Drops,Suspension 2 drp eye-both BID 7 Days Qty: 10 0RF Rx Instructions: 2 drops twice daily for 1 week then 2 drops daily for 1 week, then for next 3 days every other day then stop Continued atorvastatin 40 mg tablet 40 mg PO DAILY aspirin 81 mg tablet,delayed release (DR/EC) 81 mg PO DAILY (DME) hinged knee brace See Rx Instructions .ROUTE .MEDSUPPLY Qty: 1 0RF Rx Instructions: As directed cholecalciferol (vitamin D3) 1,000 unit/drop Drops 1,000 unit PO DAILY magnesium L-lactate [Magtab] 84 mg Tablet Extended Release 84 mg PO DAILY 14 Days Qty: 14 0RF Discontinued lisinopril-hydrochlorothiazide 20-12.5 mg tablet 1 tab PO DAILY erythromycin 5 mg/gram (0.5 %) Ointment 1 applic eye-both Q6H 7 Days Qty: 3.5 0RF levetiracetam [Keppra] 500 mg tablet 500 mg PO BID 30 Days Qty: 60 0RF Discharge Orders: Discharge Order (Routine); Ordered 08/07/24 Ordered By: Radha Johnson Referrals: [facility] [Outside] Halle Briseno MD [Physician] - 09/07/24 1:00 pm Catherine Hernández PA [Primary Care Provider] - Ceasar Love [Physician] - 1-3 days Lambert Pichardo MD [Physician] - 1 week Patient Instructions: Altered Mental Status (ED), Opioid Safety Discharge Attestations Time Spent in Discharge Care*: greater than 30 min Quality Metrics Clinical Quality Measures [ No reported AMI, CVA or VTE this stay] Coding Level of Care Code Acute Code for Chg Fwd Diagnoses Hypertension I10 TIANA positive R76.8 Altered mental status R41.82 Weakness R53.1 Conjunctivitis H10.9
[2024-08-07 11:22] LABS: SARS Covid-2 Antigen negative (Negative)
[2024-08-07 11:55] VITALS: BP 113/65; PULSE 62; RESP 18; TEMP 36.7; O2SAT 95
--- NOTE | 2024-08-07 12:43 | PC.NURSE ---
Report called to CINTHIA Fuentes of [facility]. Reason for visit, tests, and diagnoses from hospital visit discussed. Referrals and reasons for referrals discussed. Physical assessment discussed. All questions answered.
[2024-08-07 13:15] VITALS: BP 113/65; PULSE 62; RESP 18; TEMP 36.7; O2SAT 95
[2024-08-10 08:30] LABS: Anti-Nuclear Antibody Screen POSITIVE (NEGATIVE)
== END 2024-08-07 13:15 | disposition skilled nursing facility (03) ==
LOC: ER 20:44 → MEDSURG 20:48
PROVIDERS: Admitting Provider Student in an Organized Health Care Education/Training Program; Emergency Provider Student in an Organized Health Care Education/Training Program; PCP Physician Assistant; Visit Provider Internal Medicine
DX: H20.9 Unspecified iridocyclitis (principal); R41.82 Altered mental status, unspecified; I10 Essential (primary) hypertension; R76.8 Other specified abnormal immunological findings in serum; R53.1 Weakness; H10.9 Unspecified conjunctivitis; G93.41 Metabolic encephalopathy; Z79.82 Long term (current) use of aspirin
CPT/HCPCS: 36415; 70450; 80048; 80053; 81001; 82607; 85025; 86038; 87426; 87486; 87581; 87633; 93005; 97116; 97161; 97167; 97530; 99285; G0378; J7512

== ENCOUNTER → 2024-09-07 12:44 | Outpatient (BNVA) | payer MEDICARE, MEDICAID, SELFPAY | PROVIDERS: PCP Physician Assistant; Visit Provider Specialist | DX: Z09 Encounter for follow-up examination after completed treatment for conditions other than malignant neoplasm (principal); G93.40 Encephalopathy, unspecified; G30.9 Alzheimer's disease, unspecified; F02.80 Dementia in other diseases classified elsewhere, unspecified severity, without behavioral disturbance, psychotic disturbance, mood disturbance, and anxiety; F32.1 Major depressive disorder, single episode, moderate | CPT/HCPCS: 96116; 99204; 99205 ==

== ENCOUNTER → 2024-11-22 10:12 | Outpatient (BNVA) | payer MEDICAID, SELFPAY | PROVIDERS: PCP Physician Assistant; Visit Provider Nurse Practitioner Family | DX: L30.4 Erythema intertrigo (principal); L81.4 Other melanin hyperpigmentation; L85.8 Other specified epidermal thickening; D48.5 Neoplasm of uncertain behavior of skin; L28.0 Lichen simplex chronicus | CPT/HCPCS: 11102; 99204 ==

== ENCOUNTER → 2024-12-05 08:53 | Outpatient (BNVA) | payer MEDICARE, MEDICAID, SELFPAY | PROVIDERS: PCP Physician Assistant; Visit Provider Internal Medicine Rheumatology | DX: R76.8 Other specified abnormal immunological findings in serum (principal); M54.9 Dorsalgia, unspecified; G89.29 Other chronic pain; G30.9 Alzheimer's disease, unspecified; F02.80 Dementia in other diseases classified elsewhere, unspecified severity, without behavioral disturbance, psychotic disturbance, mood disturbance, and anxiety; Z79.899 Other long term (current) drug therapy | CPT/HCPCS: 36415; 80076; 82565; 83520; 85025; 85651; 86140; 99204 ==

== ENCOUNTER 2025-01-06 18:05 | Emergency (ER) | payer MEDICARE, MEDICAID, SELFPAY ==
[2025-01-06 18:07] VITALS: BP 109/68; PULSE 47; RESP 18; TEMP 36.9; O2SAT 93; BMI 34.9
--- NOTE | 2025-01-06 18:18 | XRR_ITS ---
PROCEDURE INFORMATION: Exam: XR Chest Exam date and time: 01/06/2025 6:35 PM Age: 74 years old Clinical indication: Shortness of breath; SOB TECHNIQUE: Imaging protocol: Radiologic exam of the chest. Views: 1 view. COMPARISON: CR XR chest 1V portable [id number] 07/23/2024 9:41 AM FINDINGS: Lungs: Unremarkable. No consolidation. Pleural spaces: Unremarkable. No pleural effusion. No pneumothorax. Heart/Mediastinum: Unremarkable. No cardiomegaly. Bones/joints: Unremarkable. XR/XR chest 1V portable [id number] IMPRESSION: No acute findings.
--- NOTE | 2025-01-06 18:19 | ECG_ITS ---
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1950 Requested By: Tanisha Quinones Order Number: [id number] Reading MD: LATASHA CRUM Measurements Intervals [place] Rate: 42 P: 56 NH: 178 QRS: 14 QRSD: 72 T: 28 QT: 478 QTc: 402 Interpretive Statements SINUS BRADYCARDIA WITH OCCASIONAL SUPRAVENTRICULAR PREMATURE COMPLEXES IN A BIGEMINAL PATTERN LEFT ATRIAL ENLARGEMENT [-0.15mV P-WAVE IN V1/V2] LOW QRS VOLTAGE IN PRECORDIAL LEADS [QRS DEFLECTION < 1.0 mV IN CHEST LEADS] SEPTAL MYOCARDIAL INFARCTION , OF INDETERMINATE AGE [40+ ms Q WAVE IN V1/V2] MODERATE T-WAVE ABNORMALITY, CONSIDER ANTERIOR ISCHEMIA [-0.1+ mV T-WAVE IN V3/V4] Compared to ECG 07/30/2024 23:51:56 No change since previous ECG performed on Electronically Signed On 01-08-2025 18:10:33 CDT by LATASHA CRUM [email or web address]
[2025-01-06 18:35] LABS: Basophils # 0.1 10^3/uL (0.0-0.1); Basophils % 0.7 %; Eosinophils # 0.2 10^3/uL (0.0-0.8); Eosinophils % 3.1 %; Hematocrit 43.3 % (36-47); Lymphocytes # 2.5 10^3/uL (0.8-4.8); Lymphocytes % 36.1 %; Mean Corpuscular HGB Conc 33.7 g/dL (30-55); Mean Corpuscular Hemoglobin 31.6 pg (27-33); Mean Corpuscular Volume 93.7 fl (85-98); Mean Platelet Volume 10.8 fL (7.4-10.4); Monocytes # 0.9 10^3/uL (0.2-0.9); Monocytes % 12.8 %; Neutrophils % 46.9 %; Nucleated Red Blood Cells % 0 %; Platelet Count 171 10^3/cmm (157-399); Red Blood Count 4.62 10^6/uL (3.85-5.65); Red Cell Distribution Width 12.4 % (12.1-15.1); White Blood Count 6.82 10^3/uL (3.29-11.43)
[2025-01-06 18:39] LABS: Troponin(5th) Baseline 10 ng/L (0-10)
[2025-01-06 18:53] LABS: Alanine Aminotransferase 56 U/L (0-33); Albumin Level 4.2 g/dL (3.5-5.2); Alkaline Phosphatase 93 U/L (35-105); Blood Urea Nitrogen 13 mg/dL (8-23); Calcium 9.3 mg/dL (8.5-10.5); Carbon Dioxide 23 mmol/L (22-29); Chloride 102 mmol/L (98-107); Creatinine Clr Calc Pharmacy 77.5855; Glucose 183 mg/dL (65-115); Magnesium 1.8 mg/dL (1.7-2.3); Osmolality Calculated 291 mOsm/kg (285-295); Sodium 138 mmol/L (136-145); Thyroid Stimulating Hormone 2.09 uIU/mL (0.27-4.20); Total Bilirubin 0.6 mg/dL (0.15-1.2); Total Protein 7.2 g/dL (6.6-8.7)
[2025-01-06 18:54] LABS: Anion Gap 17.5 (5-19); Aspartate Amino Transferase 68 U/L (0-32); Potassium 4.5 mmol/L (3.5-5.1)
--- NOTE | 2025-01-06 18:58 | ED_ITS ---
HPI - Arrhythmia/Palpitations 2 General: Chief Complaint: Arrhythmia/Palpitations Stated Complaint: bradycardia Time Seen by Provider: 01/06/25 18:11 History of Present Illness: 74-year-old female with a history of chr onic back pain (she says that she never has any relief from this pain), hypertension, obesity, who presents emergency room by ambulance from senior care. Apparently senior care had called because the patient was found to be very emotional but their concern was that she was bradycardic. They claims she got down into the 30s. No altered mental status. No chest pain. She has her chronic back pain. EMS reports that she was extremely tearful and when they gave fentanyl in the ambulance her mood improved greatly. Here she has no new complaints. She is bradycardic in the mid to upper 40s. Blood pressure is 109/68. There is also some talk of worsening anxiety because family had pushed her into having a DNR CODE STATUS and she does not want to. Related Data Home Medications ?Medication ?Instructions ?Recorded ?Confirmed aspirin 81 mg tablet,delayed 81 mg PO DAILY 12/14/19 0 12/05/24 release cholecalciferol (vitamin D3) 25 1,000 unit PO DAILY 12/05/24 mcg/drop (1,000 unit/drop) oral drops atorvastatin 40 mg tablet 40 mg PO DAILY 04/15/2111/25 betamethasone valerate 0.1 % applic topical 09/07/24 0 12/05/24 topical cream magnesium L-lactate PO 12/05/24 12/05/24 Previous Rx's ?Medication ?Instructions ?Recorded hinged knee brace #1 ea 12/16/20 lisinopril 20 mg tablet 20 mg PO DAILY #60 tabs 07/25 02/15 citalopram 20 mg tablet 20 mg PO DAILY #30 tabs 08/25 02/15 galantamine 4 mg tablet 4 mg PO BID #60 tabs 4 Allergies Allergy/AdvReac Type Severity Reaction Status Date / Time metformin Allergy Unknown Verified 12/05/24 09:31 Penicillins Allergy Unknown Verified 12/05/24 09:31 sulfamethoxazole (From Allergy Unknown Verified 12/05/24 09:31 Bactrim) trimethoprim (From Bactrim) Allergy Unknown Verified 12/05/24 09:31 trazodone (From Desyrel) AdvReac NAUSEA Verified 12/05/24 09:31 Review of Systems 2 Narrative: Constitutional symptoms: Negative except as documented in HPI. Skin symptoms: Negative except as documented in HPI. Eye symptoms: Negative except as documented in HPI. ENMT symptoms: Negative except as documented in HPI. Respiratory symptoms: Negative except as documented in HPI. Cardiovascular symptoms: Negative except as documented in HPI. Gastrointestinal symptoms: Negative except as documented in HPI. Genitourinary symptoms: Negative except as documented in HPI. Musculoskeletal symptoms: Negative except as documented in HPI. Neurologic symptoms: Negative except as documented in HPI. Psychiatric symptoms: Negative except as documented in HPI. Endocrine symptoms: Negative except as documented in HPI. PFSH ED 2 PFSH: Medical History (Updated 01/06/25 @ 19:45 by Tanisha Medina MD) Positive antinuclear antibody Essential hypertension Psoriasis Conjunctivitis Weakness Altered mental status TIANA positive No pertinent past medical history neghx: dm,thyroid,dvt/pe PCP: [facility] Macrocytosis without anemia DDD (degenerative disc disease), lumbar Primary osteoarthritis of right knee Hx of stroke without residual deficits Hypertension Surgical History H/O colonoscopy History of liver biopsy H/O eye surgery BILATERAL H/O tubal ligation Status post right knee replacement Family History Father , DOES NOT KNOW AGE Hypertension Mother Breast cancer, Onset Age: 80 Denies family history of Colon cancer Ovarian cancer Diabetes Heart disease Hypercholesteremia Uterine cancer Thyroid disease Stroke Social History Smoking and tobacco/nicotine status: never used tobacco/nicotine Second hand smoke exposure: No Alcohol intake: never Substance/Drug Use: never Physical Exam 2 Narrative: EXAM NARRATIVE: General: Alert, no acute distress. Skin: Warm, dry. Head: Normocephalic, atraumatic. Neck: Supple, trachea midline. Eye: Extraocular movements are intact. Ears, nose, mouth and throat: mucosa moist. Cardiovascular: Regular, bradycardic normal peripheral perfusion. Respiratory: Lungs are clear to auscultation, respirations are non-labored, breath sounds are equal, Symmetrical chest wall expansion. Gastrointestinal: Soft, Nontender, Non distended Musculoskeletal: Normal ROM, no deformity. Neurological: Alert and oriented, No focal neurological deficit observed. Psychiatric: Cooperative, appropriate mood & affect. Course 2 Vital Signs: Vital signs: Vital Signs Temperature 98.4 F 01/06/25 18:07 Pulse Rate 48 L 01/06/25 19:20 Respiratory Rate 14 01/06/25 19:20 Blood Pressure 109/68 01/06/25 18:07 Pulse Oximetry 87 L 01/06/25 19:20 Oxygen Delivery Me thod Room Air 01/06/25 18:07 MDM - Arrhythmia/Palpitations Medical Decision Making Medical decision making: Differential diagnosis including but not limited to and based on the above HPI, review of systems and physical exam: Patient with bradycardia so we will do a basic cardiac workup. Orders placed to evaluate differential diagnosis based on the above differential, HPI and physical exam EKG: Time 1810. Rate 42. Sinus bradycardia, No ST-T changes, no ectopy, normal MS & QRS intervals, This was reviewed and interpreted by myself the ER physician at 1814 Chest x-ray: Stable borderline cardiomegaly. No acute process. No infiltrate. No pneumothorax. This was reviewed and interpreted by myself the emergency room physician. I also reviewed the radiology report. Lab Review: Laboratory results were reviewed and interpreted by myself the emergency room physician. Lab review is unremarkable. No elevation in troponin. No leukocytosis. No anemia. No renal failure. I reviewed the patient's medical record. Reexamination: Patient has remained slightly bradycardic in the upper 40s and lower 50s. However looking back she is always in the low 50s and low 60s. Her blood pressure has maintained like this. I do not think this needs acute admission to the hospital. She is asymptomatic. Assessment and plan: Bradycardia Chronic back pain Anxiety - Discharged home - Discussed plan with patient. Answered any questions. - Evaluation and treatment of this problem were appropriate in the emergency setting. Lab Data 01/06/25 18:15 01/06/25 18:15 Laboratory Results WBC 6.82 10^3/uL (3.29-11.43) 01/06/25 18:15 RBC 4.62 10^6/uL (3.85-5.65) 01/06/25 18:15 Hgb 14.60 g/dL (11.27-16.99) 01/06/25 18:15 Hct 43.3 % (36-47) 01/06/25 18:15 MCV 93.7 fl (85-98) 01/06/25 18:15 MCH 31.6 pg (27-33) 01/06/25 18:15 MCHC 33.7 g/dL (30-55) 01/06/25 18:15 RDW 12.4 % (12.1-15.1) 01/06/25 18:15 Plt Count 171 10^3/cmm (157-399) 01/06/25 18:15 MPV 10.8 fL (7.4-10.4) H 01/06/25 18:15 Neut % (Auto) 46.9 % 01/06/25 18:15 Lymph % (Auto) 36.1 % 01/06/25 18:15 [place] % (Auto) 12.8 % 01/06/25 18:15 Eos % (Auto) 3.1 % 01/06/25 18:15 Baso % (Auto) 0.7 % 01/06/25 18:15 Neut # (Auto) 3.20 10^3/uL (1.8-7.7) 01/06/25 18:15 Lymph # (Auto) 2.5 10^3/uL (0.8-4.8) 01/06/25 18:15 [place] # (Auto) 0.9 10^3/uL (0.2-0.9) 01/06/25 18:15 Eos # (Auto) 0.2 10^3/uL (0.0-0.8) 01/06/25 18:15 Baso # (Auto) 0.1 10^3/uL (0.0-0.1) 01/06/25 18:15 Nucleated RBC % (auto) 0 % 01/06/25 18:15 Nucleated RBCs # 0.0 /100WBC 01/06/25 18:15 Sodium 138 mmol/L (136-145) 01/06/25 18:15 Potassium 4.5 mmol/L (3.5-5.1) 01/06/25 18:15 Chloride 102 mmol/L (98-107) 01/06/25 18:15 Carbon Dioxide 23 mmol/L (22-29) 01/06/25 18:15 Anion Gap 17.5 (5-19) 01/06/25 18:15 BUN 13 mg/dL (8-23) 01/06/25 18:15 Creatinine 0.8 mg/dL (0.5-0.9) 01/06/25 18:15 GFR Calculation Not Reportable 01/06/25 18:15 Glucose 183 mg/dL (65-115) H 01/06/25 18:15 Calculated Osmolality 291 mOsm/kg (285-295) 01/06/25 18:15 Calcium 9.3 mg/dL (8.5-10.5) 01/06/25 18:15 Magnesium 1.8 mg/dL (1.7-2.3) 01/06/25 18:15 Total Bilirubin 0.6 mg/dL (0.15-1.2) 01/06/25 18:15 AST 68 U/L (0-32) H 01/06/25 18:15 ALT 56 U/L (0-33) H 01/06/25 18:15 Alkaline Phosphatase 93 U/L (35-105) 01/06/25 18:15 Troponin T Baseline 10 ng/L (0-10) 01/06/25 18:15 Total Protein 7.2 g/dL (6.6-8.7) 01/06/25 18:15 Albumin 4.2 g/dL (3.5-5.2) 01/06/25 18:15 Globulin 3.0 g/dL (1.3-4.6) 01/06/25 18:15 TSH 2.09 uIU/mL (0.27-4.20) 01/06/25 18:15 All radiology interpretation(s) finalized by discharge Discharge Plan Discharge Patient Disposition: Home Clinical Impression: Bradycardia, Chronic back pain, Dehydration Condition: Stable Prescriptions: No Action atorvastatin 40 mg tablet 40 mg PO DAILY aspirin 81 mg tablet,delayed release (DR/EC) 81 mg PO DAILY (DME) hinged knee brace See Rx Instructions .ROUTE .MEDSUPPLY Qty: 1 0RF Rx Instructions: As directed betamethasone valerate 0.1 % cream topical galantamine 4 mg tablet 4 mg PO BID Qty: 60 3RF Rx Instructions: administer with AM and PM meals citalopram 20 mg tablet 20 mg PO DAILY Qty: 30 5RF magnesium L-lactate PO cholecalciferol (vitamin D3) 1,000 unit/drop Drops 1,000 unit PO DAILY lisinopril 20 mg Tablet 20 mg PO DAILY Qty: 60 0RF Discharge Orders: Discharge ED (Routine); Ordered 01/06/25 Ordered By: Tanisha Medina Referrals: Catherine Hernández PA [Primary Care Provider] - Discharge Diet: Usual diet Discharge Activity: Increase activity as tolerated Patient Instructions: Bradycardia (ED), Opioid Safety, Pain Management Activity Restrictions/Additional Instructions: You have chronic bradycardia and this is not out of your normal to be in the upper 40s. No signs of strain to your heart today. Please follow-up with your primary care as soon as possible. Thank you for choosing [facility] for your healthcare needs today. Please realize this is an emergency room and that we are providing you with a medical screening exam and this may not be complete and all inclusive of all the testing and or work up that you may need to determine your ailment or severity of your illness. You have been screened and evaluated and felt safe for discharge. Health conditions do change or evolve sometimes and as such it is important that you follow up with your Primary Doctor to be re checked, 3-5 days is a general good time frame for follow up. You are always welcome to return to the ED for re assessment if your symptoms are worsening or you have new concerns Print Language: Upper Sorbian Coding Level of Care Code ED Whiskey Regauger for Jerica Armstrong
[2025-01-06 19:16] VITALS: PULSE 50; RESP 16; O2SAT 94
[2025-01-06 19:20] VITALS: PULSE 48; RESP 14; O2SAT 87
[2025-01-06 19:30] VITALS: PULSE 44; RESP 23
[2025-01-06 19:54] VITALS: BP 139/83; PULSE 61
[2025-01-06] MEDS: sodium chloride 0.9% 500 ML 999 ML IV (20:00)
[2025-01-06 20:20] LABS: Bilirubin Urine Negative (Negative); Blood Urine Negative (Negative); Glucose Urine UA Negative (Normal); Ketones Urine Trace (Negative); Leukocyte Esterase Urine Negative (Negative); Nitrate Urine Negative (Negative); Protein Urine Negative (Negative); Specific Gravity, Urine 1.022 (1.005-1.030); Urine Appearance Clear (CLEAR); Urine Color Yellow (Yellow)
[2025-01-06 20:25] LABS: Add Urine Microscopic? YES; Bacteria Urine Trace /hpf; Hyaline Casts Urine 1.21 /lpf; WBC Urine 0-5 /hpf (0-5)
[2025-01-06 21:17] VITALS: BP 139/81; PULSE 45; O2SAT 96
== END 2025-01-06 21:33 | disposition home or self-care (01) ==
PROVIDERS: Emergency Provider Emergency Medicine; PCP Physician Assistant
DX: R00.1 Bradycardia, unspecified (principal); M54.9 Dorsalgia, unspecified; E86.0 Dehydration; Z79.82 Long term (current) use of aspirin; I10 Essential (primary) hypertension
CPT/HCPCS: 71045; 80053; 81001; 83735; 84443; 84484; 85025; 93005; 96360; 99285; J7040

== ENCOUNTER → 2025-02-20 14:43 | Outpatient (BNVA) | payer MEDICARE, MEDICAID, SELFPAY | PROVIDERS: PCP Physician Assistant; Visit Provider Specialist | DX: Z09 Encounter for follow-up examination after completed treatment for conditions other than malignant neoplasm (principal); G93.40 Encephalopathy, unspecified; G30.9 Alzheimer's disease, unspecified; F02.80 Dementia in other diseases classified elsewhere, unspecified severity, without behavioral disturbance, psychotic disturbance, mood disturbance, and anxiety; F32.1 Major depressive disorder, single episode, moderate | CPT/HCPCS: G0463 ==

== ENCOUNTER → 2025-05-23 13:50 | Outpatient (BNVA) | payer MEDICARE, MEDICAID, SELFPAY | PROVIDERS: PCP Physician Assistant; Visit Provider Nurse Practitioner Family | DX: L57.0 Actinic keratosis (principal); L28.0 Lichen simplex chronicus; D22.39 Melanocytic nevi of other parts of face; L57.8 Other skin changes due to chronic exposure to nonionizing radiation; L81.4 Other melanin hyperpigmentation | CPT/HCPCS: 99213 ==

== ENCOUNTER → 2025-06-04 11:31 | Outpatient (BNVA) | payer MEDICARE, MEDICAID, SELFPAY | PROVIDERS: PCP Physician Assistant; Visit Provider Internal Medicine Rheumatology | DX: R76.8 Other specified abnormal immunological findings in serum (principal); M54.9 Dorsalgia, unspecified; G89.29 Other chronic pain; G30.9 Alzheimer's disease, unspecified; F02.80 Dementia in other diseases classified elsewhere, unspecified severity, without behavioral disturbance, psychotic disturbance, mood disturbance, and anxiety | CPT/HCPCS: 99214 ==